=== PATIENT | female | born 1930 | race Caucasian/White ===

== ENCOUNTER → 2016-04-08 | Day surgery (SDC) | payer OTHER ==
[~2016-04-08] VITALS: Ht 157.5 cm; Wt 61.7 kg
[~2016-04-08] MED LIST: ACETAMINOPHEN500 M4 PO; AMLODIPINE BESYL5 M1 PO; ASPIRIN EC81 M1 PO; ATORVASTATIN CA10 M1 PO; FUROSEMIDE20 M1 PO; LABETALOL HCL300 M1 PO; LEVOTHYROXINE88 MCG PO; LOVENOX40 MG/0.1 SC; VALSARTAN160 M1 PO
--- NOTE | 2016-04-08 08:10 | Operative Report ---
Operative/Inv Procedure Report Surgery Date: 04/08/16 Name of Procedure: Cataract extraction lens implantation left eye Pre-Operative Diagnosis: Age-related cataract left eye 20/60 vision Post-Operative Diagnosis: Same Estimated Blood Loss: none Surgeon/[employer] Teacher: ELIANE DAVIS,KEYANA Stewart Anesthesia: local monitored anesthesi Complications: None Operative/Procedure Note Note: The patient was brought to the operating room standard monitoring equipment was attached the patient was prepped and draped in the usual fashion for intraocular surgery. A lid speculum was placed to retract the lids. The case was begun by making 2 partial-thickness corneal relaxing incisions at 97. A temporal incision with a 2.4 mm keratome. The eye was stabilized with a Silver ring during this incision. 1 mL of non-preserved lidocaine was introduced into the anterior chamber to provide anesthesia. The anterior chamber was then filled and deepened with viscoelastic. A curvilinear capsulorrhexis was achieved using a 30-gauge needle and is a cystotome and capsulorrhexis was finished using a Utrata forceps. A second or paracentesis incision was made temporally with a 1 mm MVR blade. The lens was then hydrodissected with balanced salt solution and found to be rotatable. The lens was emulsified using phacoemulsification and a modified four-quadrant cracking technique. The residual cortical material was removed using automated irrigation and aspiration and as much of the anterior capsular rim was cleaned as well as possible. The posterior capsule was cleaned first with the automated machine on a low setting and then manually with a Zafar squeegee. The capsular bag was deepened with viscoelastic. The lens a Technis 1 20.0 diopter placed into the bag under direct visualization and rotated so that the haptics were at 12 and 6:00. Viscoelastic was then removed from the eye by flushing it out and then by automated irrigation and aspiration. The eye was pressurized to a normal tone. 1/10 of a cc of vancomycin solution was introduced into the anterior chamber to provide antibiotic prophylaxis. The wounds were sealed by hydrating the stroma adjacent to them and the eye was left at a proper tone after the wounds were checked and found not to be leaking. The lid speculum was removed from the orbit. Antibiotic and steroid drops were placed on the eye and then the eye was shielded. Monitoring equipment was removed from the patient and the patient was removed from the operative suite to the holding area. The patient tolerated the procedure well and will be seen in the office tomorrow.
== END ==
LOC: STS 02:05
DX: H25.9 Unspecified age-related cataract (principal); I10 Essential (primary) hypertension; M19.90 Unspecified osteoarthritis, unspecified site; Z86.73 Personal history of transient ischemic attack (TIA), and cerebral infarction without residual deficits
CPT/HCPCS: J2250; V2632

== ENCOUNTER 2016-07-27 13:12 | Inpatient (IN) | payer OTHER ==
[~2016-07-27] VITALS: Ht 157.5 cm; Wt 57.6 kg
[2016-07-27] MEDS ORDERED: LABETALOL HCL300 M1 PO (13:24)
--- NOTE | 2016-07-27 13:29 | ED MVC/FALL/TRAUMA COMPLAINT ---
History of Present Illness General Chief Complaint: Fall Stated Complaint: BIBA FOR FALL LEFT HIP, THIGH, KNEE, PAIN Source: patient, family, EMS Exam Limitations: no limitations Vital Signs & Intake/Output Vital Signs & Intake/Output Vital Signs Date Time Temp Pulse Resp B/P B/P Pulse O2 O2 Flow FiO2 Mean Ox Delivery Rate 08/03 1300 97.7 68 20 164/68 08/03 1245 164/68 08/03 1006 164/68 08/03 0633 97.7 68 20 164/68 99 08/03 0000 97 Nasal 1.0L Cannula 08/02 2208 66 158/70 08/02 2157 97.9 118 20 140/74 97 Nasal 1.0L Cannula ED Intake and Output 08/03 0000 08/02 1200 Intake Total 1750 1350 Output Total 800 500 Balance 950 850 Intake, IV 450 630 Intake, Oral 1300 720 Number 2 Bowel Movements Output, Urine 800 500 Allergies Coded Allergies: Iodinated Contrast Media - Oral and (IVP DYE 07/27/16) Penicillins (UNKNOWN 07/27/16) Sulfa (Sulfonamide Antibiotics) (UNKNOWN 07/27/16) Tetanus Vaccines and Toxoid (UNKNOWN 07/27/16) codeine (UNKNOWN 07/27/16) latex (ITCHING FROM LATEX GLOVES 07/27/16) Uncoded Allergies: RADIOACTIVE ISOTOPES (UNKNOWN 01/12/12) Reconcile Medications Acetaminophen 500 MG TABLET 1,000 MG PO Q6PRN PRN PAIN Amlodipine Besylate 5 MG TABLET 1 TAB PO DAILY HTN (Reported) Aspirin (Ecotrin*) 81 MG TABLET.DR 1 TAB PO DAILY tia (Reported) Atorvastatin Calcium 10 MG TABLET 1 TAB PO 1700 hld (Reported) Enoxaparin Sodium (Lovenox) 40 MG/0.4 ML SYRINGE 40 MG SC DAILY DVT Prophylaxis Continue for 4 to 6 weeks or when patient fully ambulatory Recommended by Orthopedic Surgeon. Furosemide 20 MG TABLET 1 TAB PO DAILY HTN (Reported) Labetalol HCl 300 MG TABLET 1 TAB PO BID htn (Reported) Levothyroxine Sodium 88 MCG TABLET 1 TAB PO QAM HYPOTHYROID (Reported) Triage Note: BIBA AFTER MECHANICAL FALL ONTO LEFT SIDE AND HIP, SLIGHT SHORTENING NOTED WITHOUT ROTATION. UNABLE TO LIFT LEG OR FLEX HIP INDEPENDENTLY OR WITHOUT PAIN. +PULSES BILATERALLY. NO OBVIOUS DEFORMITY. DENIES HEADSTRIKE, LOC OR BLACK OUT. DENIES HEADACHE, C-SPINE TENDERNESS OR OTHER OBVIOUS PAIN. ABD SOFT, NONTENDER. Triage Nurses Notes Reviewed? yes HPI: Ms. Smith is a 86 yo f w/ PMH HTN, HLD, minor CVAs, hypothyroidism, CHF BIBA for fall. Pt was outside the big W when she reached downt to slat pickler her hat that had fallen in a puddle and she fell onto her L side. Pt endorsing L hip and thigh pain, that radiates down to the knee. Pt unable to lift L leg off bed. Pt denies LOC, headache, head trauma, neck pain, CP, SOB, abd pain, N/V/D. (DANY GOLDBERG MD) Past History Travel History Traveled to [place] past 21 day No Medical History Any Pertinent Medical History? see below for history Neurological: CVA Cardiovascular: hypertension, hyperlipidemia Endocrine: hypothyroidism Surgical History Surgical History: none, lumpectomy Psychosocial History Who do you live with Spouse Services at Home None What is your primary language Macedonian Family History Hx Contributory? No (DANY GOLDBERG MD) Review of Systems Review of Systems Constitutional: Reports: see HPI. Denies: no symptoms. Eyes: Reports: no symptoms. Ears, Nose, Throat, Mouth: Reports: no symptoms. Respiratory: Reports: no symptoms. Cardiovascular: Reports: no symptoms. Gastrointestinal/Abdominal: Reports: no symptoms. Genitourinary: Reports: no symptoms. Musculoskeletal: Reports: joint pain (hip and knee pain). Skin: Reports: no symptoms. Neurological/Psychological: Reports: no symptoms. All Other Systems: Reviewed and Negative (DANY GOLDBERG MD) Physical Exam Physical Exam General Appearance: well developed/nourished, no apparent distress, alert, awake , mild distress Head: atraumatic, normal appearance Eyes: Bilateral: normal appearance, PERRL, EOMI, normal inspection. Ears, Nose, Throat, Mouth: hearing grossly normal Neck: normal inspection, supple, full range of motion Respiratory: normal breath sounds, chest non-tender, no respiratory distress Cardiovascular: regular rate/rhythm Peripheral Pulses: 2+ dorsalis pedis (R), 2+ dorsalis pedis (L) Gastrointestinal: normal bowel sounds, soft, non-tender Back: normal inspection, normal range of motion, no vertebral tenderness Extremities: limited range of motion, pain with movement, Tenderness to palpation of L hip with lateral pelvic compression. No instability noted with compression. Left leg is approximately 1-2 cm shorter than right leg. No external rotation noted. Neurologic/Psych: no motor/sensory deficits, awake, alert, oriented x 3, normal gait, normal mood/affect Skin: intact, normal color, warm/dry Core Measures ACS in differential dx? No Severe Sepsis Present: No Septic Shock Present: No (YUSUF DAVIS,DANY) Progress Differential Diagnosis: abd injury, C/T/L spine injury, ext injury, ICH, pelvis injury, pnemothorax, spinal cord injury Plan of Care: Orders Procedure Date/time Status BASIC ELECTROLYTES PLUS BUN&CR 08/03 0600 Complete Therapeutic Activities 08/03 UNK Complete Gait Training 08/03 UNK Complete Discharge Patient 08/03 UNK Active THERAPIST ORDERS 08/02 1600 Complete Laboratory Tests 08/03/16 0704: CBC w Diff Cancelled, WBC Cancelled, RBC Cancelled, Hgb Cancelled, Hct Cancelled , MCV Cancelled, MCH Cancelled, RDW Cancelled, Plt Count Cancelled, MPV Cancelled, PUBS MCHC Cancelled 08/03/16 0650: Anion Gap 6, Estimated GFR > 60, BUN/Creatinine Ratio 28.8 H 08/03/16 0030: Urine Color YEL, Urine Clarity CLEAR, Urine pH 6.0, Ur Specific [place] 1.015, Urine Protein NEG, Urine Ketones TRACE H, Urine Nitrite NEG, Urine Bilirubin NEG, Urine Urobilinogen 0.2, Ur Leukocyte Esterase TRACE H, Ur Microscopic SEDIMENT EXAMINED, Urine RBC 1-3, Urine WBC 3-5 H, Ur Epithelial Cells RARE, Urine Bacteria MANY H, Urine Mucus RARE, Urine Hemoglobin NEG, Urine Glucose NEG Microbiology 08/03 0030 URINE ROUT: Urine Culture - RECD Ms. Smith is an 86-year-old female baby from a mechanical fall. Patient is quite adamant there are were no presyncopal symptoms prior to the fall. She was attempting to slat pickler her cat from the ground. Physical exam is consistent with possible intertrochanteric left hip fracture given the leg shortening as well as the pain. In addition the patient is unable to lift her left leg from the bed. The remainder of her trauma exam is otherwise unremarkable. She does not have any C-spine tenderness of note and denies any LOC or other head trauma to suggest intracranial hemorrhage versus a spinal fracture. X-ray shows left femur head fracture. Discussed with the patient and her . Orthopedics consulted. Patient made nothing by mouth. Will admit to medical service for evaluation and likely go to the OR tomorrow for operative repair. Given that the patient has a broken pelvis, Mauro placed to relieve pressure on the bladder. Basic labs including EKG are obtained. Chest x-ray does not show any rib fractures. No additional fractures noted on the knee or the femur. Clinically there is no evidence of other traumatic injuries. Will admit patient to hospitalist service with orthopedics consulting. (DANY GOLDEBRG MD) Diagnostic Imaging: Viewed by Me: Radiology Read. Discussed w/RAD: Radiology Read. Radiology Impression: L femoral neck fracture CXR Impression: no acute abnormality (DANY GOLDBERG MD) Departure Departure Time of Disposition: 1504 Disposition: STILL A PATIENT Condition: Stable Clinical Impression Primary Impression: Fractured femoral neck Qualifiers: Encounter type: initial encounter Fracture type: closed Laterality: left Qualified Code: S72.002A - Fracture of unspecified part of neck of left femur, initial encounter for closed fracture Secondary Impressions: Fall Qualifiers: Encounter type: initial encounter Qualified Code: W19.XXXA - Unspecified fall, initial encounter Left hip pain Referrals: IRENE PLATA DO (PCP/Family) Departure Forms: Customer Survey General Discharge Information Prescriptions: Current Visit Scripts Acetaminophen 1,000 MG PO Q6PRN PRN PAIN #28 TAB Enoxaparin Sodium (Lovenox) 40 MG SC DAILY #30 Vial Continue for 4 to 6 weeks or when patient fully ambulatory Recommended by Orthopedic Surgeon. Admission Note Spoke With: ENEDELIA MARTINEZ MD Documentation of Exam: Documentation of any treatments & extenuating circumstances including Concerns Regarding Discharge (functional status, medication knowledge or non-compliance, living conditions, etc.) that warrant an admission rather than observation: Ms. Smith requires inpatient hospitalization for her L femoral neck fracture and fall. Patient is unable to ambulate at all and a discharge from the ED would cause grave disability and likely mortality. Pt is getting consultation by orthopedics and will likely require surgical intervension as an inpatient. (DANY GOLDBERG MD) Resident Co-Sign Statement Statement: ED Attending supervision documentation- [X] I saw and evaluated the patient. I have also reviewed all the pertinent lab results and diagnostic results. I agree with the findings and the plan of care as documented in the Resident's documentation. [X] I have reviewed the ED Record and agree with the Resident's documentation. [] Additions or exceptions (if any) to the Resident's note and plan are summarized below: [] (GEREMIAS DAVIS,CRUZ Felix)
[2016-07-27] MEDS ORDERED: AMLODIPINE BESYL5 M1 PO (13:31)
[2016-07-27] MEDS ORDERED: ATORVASTATIN CA10 M1 PO (13:31)
[2016-07-27] MEDS ORDERED: FUROSEMIDE20 M1 PO (13:31)
[2016-07-27] MEDS ORDERED: LEVOTHYROXINE88 MCG PO (13:32)
[2016-07-27] MEDS ORDERED: VALSARTAN160 M1 PO (13:32)
--- NOTE | 2016-07-27 14:39 | RADIOLOGY REPORT ---
EXAMINATION: XR PELVIS CLINICAL INFORMATION: Fall. Left hip pain. COMPARISON: None TECHNIQUE: AP view of the pelvis. FINDINGS: There is fracture through the left femoral neck with varus alignment. The left femoral head is situated within the acetabulum. No other fracture or dislocation. The pelvic rings are maintained. Decreased bone mineral density. Lower lumbar degenerative changes. Surgical clips over the right abdomen. Additional surgical material over the left pelvis. Scattered vascular calcification. IMPRESSION: Left femoral neck fracture.
--- NOTE | 2016-07-27 14:40 | RADIOLOGY REPORT ---
EXAMINATION: XR CHEST CLINICAL INFORMATION: Fall. Fracture. COMPARISON: Report from chest radiography 01/29/2012. TECHNIQUE: 2 views of the chest were obtained. FINDINGS: The lungs are well expanded. There is interstitial prominence. A couple patchy/nodular opacities overlie the right lower lung, which are unchanged compared to exam 01/29/2012. Small bilateral pleural effusions. No pneumothorax. Biapical pleural parenchymal scarring. Top normal to mildly enlarged cardiac size. Upper abdominal surgical clips. No acute osseous abnormalities. IMPRESSION: 1. Bilateral interstitial prominence. Findings may represent a degree of interstitial edema. 2. Small bilateral pleural effusions versus pleural scarring, which is chronic. 3. Chronic patchy/nodular opacities overlying the right lower lung, likely representing benign nodules.
--- NOTE | 2016-07-27 14:43 | RADIOLOGY REPORT ---
EXAMINATION: XR FEMUR, LEFT XR KNEE, LEFT CLINICAL INFORMATION: Fall. Left thigh pain. COMPARISON: None TECHNIQUE: AP and lateral views of the left femur were obtained. FINDINGS: Left femoral neck fracture with varus alignment and slight cranial migration of the distal femur. No other femoral fracture is demonstrated. Decreased bone mineral density. The knee joint is congruent. No significant knee joint effusion. Atherosclerotic calcification. Suspect left leg varices. IMPRESSION: Left femoral neck fracture. No distal femoral fracture or acute osseous abnormality at the left knee.
[2016-07-27 14:52] LABS: ABSOLUTE BASOPHIL COUNT 0 /CUMM (0.0-0.2); ABSOLUTE EOSINOPHIL COUNT 0 /CUMM (0.0-0.7); ABSOLUTE GRANULOCYTE CT 6.4 /CUMM (1.4-6.5); ABSOLUTE LYMPH COUNT 0.7 /CUMM (1.2-3.4); ABSOLUTE MONOCYTE COUNT 0.3 /CUMM (0.10-0.60); BASOPHIL % 0.3 % (0.0-2.0); EOSINOPHIL % 0.2 % (0-5); GRANULOCYTE % 86.5 % (42.2-75.2); HEMATOCRIT 41.2 % (37-47); MEAN CORPUSCULAR HGB 26.4 PG (27.0-31.0); MEAN CORPUSCULAR HGB CONC 33.2 G/DL (33.0-37.0); MEAN CORPUSCULAR VOLUME 79.5 FL (81.0-99.0); MEAN PLATELET VOLUME 7.8 FL (7.4-10.4); PLATELET COUNT 135 /CUMM (130-400); RBC DISTRIBUTION WIDTH 14.3 % (11.5-14.5); RED BLOOD CELL CT 5.18 /CUMM (4.20-5.40); WHITE BLOOD CELL COUNT 7.4 /CUMM (4.8-10.8)
[2016-07-27 15:09] LABS: PT 11.4 SEC (9.4-12.5)
--- NOTE | 2016-07-27 15:23 | Cons- Orthopedic ---
General Information and HPI Consulting Request Date of Consult: 07/27/16 Requested By: Emergency department staff Reason for Consult: Left femoral fracture Source of Information: patient, family Exam Limitations: poor historian History of Present Illness: 78-year-old female brought into the emergency department status post fall landing of left lower extremity pain. The patient was seen with present she reports while shopping perhaps fell off into puddle when she attempted to bend down and pick it up she lost her balance and fell onto her left side. She complains of left hip knee and ankle pain she had no other complaints the current time and denied any other injury. She denied any prefall dizziness, palpitations, weakness, or visual changes. She denies any new head and denies any post-fall loss of consciousness, headache, or weakness. Allergies/Medications Allergies: Coded Allergies: Iodinated Contrast Media - Oral and (IVP DYE 07/27/16) Penicillins (UNKNOWN 07/27/16) Sulfa (Sulfonamide Antibiotics) (UNKNOWN 07/27/16) Tetanus Vaccines and Toxoid (UNKNOWN 07/27/16) codeine (UNKNOWN 07/27/16) furosemide (FACIAL SWELLING 07/27/16) latex (ITCHING FROM LATEX GLOVES 07/27/16) Uncoded Allergies: RADIOACTIVE ISOTOPES (UNKNOWN 01/12/12) Home Med List: Amlodipine Besylate 5 MG TABLET 1 TAB PO DAILY HTN (Reported) Atorvastatin Calcium 10 MG TABLET 1 TAB PO DAILY CHOLESTEROL (Reported) Furosemide 20 MG TABLET 1 TAB PO DAILY HTN (Reported) Labetalol HCl 300 MG TABLET 1 TAB PO QAM HTN (Reported) Levothyroxine Sodium 88 MCG TABLET 1 TAB PO QAM HYPOTHYROID (Reported) Valsartan 160 MG TABLET 1 TAB PO DAILY HTN (Reported) Past History Medical History Neurological: TIA EENT: NONE Cardiovascular: hypertension, hyperlipidemia Respiratory: NONE Gastrointestinal: NONE Hepatic: NONE Renal: NONE Musculoskeletal: NONE Psychiatric: NONE Endocrine: hypothyroidism Blood Disorders: NONE Cancer(s): NONE Surgical History Pertinent Surgical History: breast biopsy, lumpectomy, toncillectomy, rt thigh mass rx Psychosocial History Where Do You Live? Home Who Do You Live With? spouse Services at Home: None Primary Language: Korean Smoking Status: Never Smoked ETOH Use: denies use Functional Ability ADLs Independent: dressing, eating, toileting, bathing. Ambulation: independent IADLs Independent: shopping, housework, finances, food prep, telephone, medication admin. Needs Assist: transportation. Review of Systems Review of Systems Constitutional: Denies: weakness. Cardiovascular: Denies: chest pain, palpitations. Respiratory: Denies: cough, short of breath. Genitourinary: Denies: dysuria. Exam & Diagnostic Data Vital Signs and I&O Vital Signs Date Time Temp Pulse Resp B/P B/P Pulse O2 O2 Flow FiO2 Mean Ox Delivery Rate 07/27 1447 62 18 169/72 95 Room Air 07/27 1400 96 Room Air 07/27 1319 98.0 70 20 191/75 97 Room Air Intake & Output 07/27 1600 07/27 0800 07/27 0000 07/26 1600 07/26 0800 07/26 0000 Intake Total Output Total 500 Balance -500 Output, Urine 500 X-rays of left lower extremity showing a left slightly displaced femoral neck fracture Chest x-ray with some interstitial edema and pleural thickening Left knee x-ray without fracture Physical Exam: Gen.: Alert and in no obvious distress Skin: Warm and dry without jaundice HEENT: Normocephalic and atraumatic Chest: Nontender with equal expansion Cardiac: S1-S2 regular Pulmonary: Bilateral breath sounds were equal and slightly decreased at bases. There are no wheezes rales or rhonchi appreciated. Abdomen: Soft, nontender, nondistended Extremities: Bilateral lower extremities warm without calf tenderness or significant edema. Gross motor and sensory were intact. Left hip with significant tenderness but no palpable deformity overlying mild expected edema with skin intact. Assessment/Plan Assessment/Plan Assessment: 86-year-old female status post fall who sustained a left femoral neck fracture. The case was discussed with Dr. Rome. Recommendations: The patient should be admitted to the medical service for optimization and risk stratification prior to surgery Please keep patient nothing by mouth past midnight for possible operative intervention tomorrow should the patient be deemed an acceptable risk Mauro catheter with strict bedrest until surgical repair GI and DVT prophylaxis PRN pain medications, antiemetics, antipyretics as needed Would consider having cardiology see the patient given her past history (patient 's director of career resources is Dr. Nichole) Problem List: 1. Fractured femoral neck Consult Acknowledgment - Thank you for your consult request.
[2016-07-27] MEDS ORDERED: ASPIRIN EC81 M1 PO (16:11)
--- NOTE | 2016-07-27 16:22 | PN- Orthopedic ---
Surgical Brief Attending Note Brief Attending Note: 86yo F with history of TIA, HTN, hypothyroidism, and CHF with pulmonary edema in 2012 presents with left leg pain s/p ground level fall earlier today. She was attempting to belt picker a hat and tumbled forward. Complains of aching in the left leg and pain with attempted movement of the leg. Denies pain in other extremities. is at the bedside; osuna has been placed. ROS: denies chest pain, shortness of breath, or recent changes in overall health. Hard of hearing. Exam: Tender to palpation over left hip and thigh. Mild tenderness over left knee and left calf. No ecchymosis or abrasion noted over left hip. Intact bilateral ankle DF/PF and great toe EHL/FHL Sensation intact to light touch over bilateral legs and feet. Bilateral feet warm, well-perfused. No tenderness to palpation of bilateral upper extremities. No abrasions or ecchymosis noted. Moving bilateral arm and using hands with ease. Xrays: left displaced femoral neck fracture; no evidence of left knee fracture or malalignment. A/P: 86yo F with left displaced femoral neck fracture; recommend surgical stabilization with left hip hemiarthroplasty following medical/cardiac optimization. Discussed surgical intervention with patient and her . Will plan for OR following medical evaluation, likely tomorrow. NWAlisha ROSALESE Pain control Osuna catheter Appreciate medical/cardiac care of this patient NPO after midnight for surgical stabilization with hemiarthroplasty tomorrow pending further evaluation.
--- NOTE | 2016-07-27 16:24 | History & Physical ---
JACQUIE DAVIS,DENISSE 07/27/16 1624: General Information and HPI MD Statement: I have seen and personally examined ANDREW CANTU and documented this H&P. The patient is a 86 year old F who presented with a patient stated chief complaint of [fall and left lower extremity pain]. Source of Information: patient, family Exam Limitations: no limitations, poor historian History of Present Illness: This is 86 year female with past medical history of diastolic heart failure, hypertension, hypothyroidism, TIA 6 years ago, breast lumpectomies, bowel perforation status post ileostomy with subsequent reversal, cataract was brought into the emergency department status post fall with chief complaint of left lower extremity pain. Today patient went to shopping and after returning while getting out of the car her head from her lap fell off into the puddle. She bent down to get her head and lost her balance and fell on her buttocks, no head strike or loss of consciousness. Just after the fall patient started having excruciating left lower extremity pain and she was not able to stand up on her own. Patient denied any episode of dizziness, palpitation, weakness or visual changes prior to fall. Patient was brought in to ER by ambulance and on evaluation with x-ray patient found to have left femoral neck fracture. Patient denies any chest pain, dizziness, lightheadedness, weakness, sensory loss in her lower extremity. Allergies/Medications Allergies: Coded Allergies: Iodinated Contrast Media - Oral and (IVP DYE 07/27/16) Penicillins (UNKNOWN 07/27/16) Sulfa (Sulfonamide Antibiotics) (UNKNOWN 07/27/16) Tetanus Vaccines and Toxoid (UNKNOWN 07/27/16) codeine (UNKNOWN 07/27/16) latex (ITCHING FROM LATEX GLOVES 07/27/16) Uncoded Allergies: RADIOACTIVE ISOTOPES (UNKNOWN 01/12/12) Home Med list Amlodipine Besylate 5 MG TABLET 1 TAB PO DAILY HTN (Reported) Aspirin (Ecotrin*) 81 MG TABLET.DR 1 TAB PO DAILY tia (Reported) Atorvastatin Calcium 10 MG TABLET 1 TAB PO 1700 hld (Reported) Furosemide 20 MG TABLET 1 TAB PO DAILY HTN (Reported) Labetalol HCl 300 MG TABLET 1 TAB PO BID htn (Reported) Levothyroxine Sodium 88 MCG TABLET 1 TAB PO QAM HYPOTHYROID (Reported) Valsartan 160 MG TABLET 1 TAB PO DAILY HTN (Reported) Compliance With Home Meds: FAIR Past History Travel History Traveled to [place] past 21 day No Medical History Neurological: TIA EENT: NONE Cardiovascular: hypertension, hyperlipidemia Respiratory: NONE Gastrointestinal: NONE Hepatic: NONE Renal: NONE Musculoskeletal: NONE Psychiatric: NONE Endocrine: hypothyroidism Blood Disorders: NONE Cancer(s): NONE Surgical History Surgical History: breast biopsy, lumpectomy, toncillectomy, rt thigh mass rx Past Family/Social History Family History Relations & Conditions if any FATHER FH: myocardial infarction SISTER FHx: leukemia BROTHER FH: myocardial infarction Psychosocial History Where do you live? Home Who Do You Live With? spouse Services at Home: None Primary Language: American Smoking Status: Never Smoked ETOH Use: denies use Illicit Drug Use: denies illicit drug use Living Will? no Functional Ability ADLs Independent: dressing, eating, toileting, bathing. Ambulation: independent IADLs Independent: shopping, housework, finances, food prep, telephone, medication admin. Needs Assist: transportation. Review of Systems Review of Systems Constitutional: Denies: chills, fever, malaise, weakness. EENTM: Reports: hearing changes. Denies: visual changes. Cardiovascular: Denies: chest pain, edema, orthopena, palpitations, peripheral edema, syncope. Respiratory: Denies: orthopnea, short of breath, sputum production, wheezing. GI: Denies: diarrhea, nausea, vomiting. Genitourinary: Denies: dysuria, frequency, hematuria. Musculoskeletal: Reports: joint pain. Skin: Denies: rash. Neurological/Psychological: Denies: confusion, headache, numbness. Hematologic/Endocrine: Denies: bleeding. Exam & Diagnostic Data Last 24 Hrs of Vital Signs/I&O Vital Signs Date Time Temp Pulse Resp B/P B/P Pulse O2 O2 Flow FiO2 Mean Ox Delivery Rate 07/27 1710 97.7 64 19 140/72 96 07/27 1552 97.9 64 16 167/71 95 Room Air 07/27 1447 62 18 169/72 95 Room Air 07/27 1400 96 Room Air 07/27 1319 98.0 70 20 191/75 97 Room Air Intake & Output 07/27 1600 07/27 0800 07/27 0000 Intake Total Output Total 600 Balance -600 Output, Urine 600 Physical Exam General Appearance Alert, Oriented X3, Cooperative, Moderate Distress Skin No Rashes Skin Temp/Moisture Exam: Warm/Dry HEENT Atraumatic, PERRLA, EOMI, Mucous Membr. moist/pink Neck Supple, No JVD Lymphatic Cervical nl Cardiovascular Regular Rate, Normal S1, Normal S2, No Murmurs Lungs Clear to Auscultation, Normal Air Movement Abdomen Normal Bowel Sounds, Soft, No Tenderness Neurological Normal Speech, Strength at 5/5 X4 Ext, Normal Tone, Sensation Intact, Cranial Nerves 3-12 NL Extremities No Edema, Normal Pulses, lt. LE moted externally rotated with reduced ROM due to pain Vascular Normal Pulses, Pulses Symmetrical Sepsis Peripheral Pulse Location: Posterior Tibialis Last 24 Hrs of Labs/[place]: Laboratory Tests 07/27/16 1442: Anion Gap 10, Estimated GFR 42 L, BUN/Creatinine Ratio 18.3, Glucose 177 H, Calcium 9.5, Total Bilirubin 0.8, AST 18, ALT 25, Alkaline Phosphatase 60, Total Protein 5.9 L, Albumin 3.7, Globulin 2.2, Albumin/Globulin Ratio 1.7, PT 11.4, INR 1.09, CBC w Diff MAN DIFF ORDERED, RBC 5.18, MCV 79.5 L, MCH 26.4 L, RDW 14.3, MPV 7.8, Gran % 86.5 H, Lymphocytes % 9.4 L, Monocytes % 3.6, Eosinophils % 0.2, Basophils % 0.3, Absolute Granulocytes 6.4, Segmented Neutrophils 85 H, Band Neutrophils 3, Absolute Lymphocytes 0.7 L, Lymphocytes 10 L, Monocytes 2, Absolute Monocytes 0.3, Absolute Eosinophils 0, Absolute Basophils 0, Platelet Estimate ADEQUATE, Normochromic RBCs VERIFIED, PUBS MCHC 33.2 07/27/16 1433: Urine Color YEL, Urine Clarity CLEAR, Urine pH 6.5, Ur Specific Jean 1.010, Urine Protein NEG, Urine Ketones NEG, Urine Nitrite NEG, Urine Bilirubin NEG, Urine Urobilinogen 0.2, Ur Leukocyte Esterase NEG, Ur Microscopic EXAM NOT REQUIRED, Urine Hemoglobin NEG, Urine Glucose NEG Microbiology 07/27 1432 URINE ROUT: Urine Culture - RECD Diagnostic Data EKG Results Normal sinus rhythm at rate of 60, nonspecific Q waves in leads 3 aVF and V1 to V4 unchanged from previous EKG CXR Results Noted with bilateral interstitial prominence with questionable interstitial edema, bilateral small pleural effusion, chronic right lower lobe nodule Other Results Femoral x-ray revealed left femoral neck fracture Assessment/Plan Assessment: This is 86 year female with past medical history of diastolic heart failure, hypertension, hypothyroidism, TIA 6 years ago, breast lumpectomies, 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 1. Left femoral neck fracture - Admit to general medicine floor - Pain management - Appreciated orthopedic surgery recommendations -We'll keep patient nothing by mouth for possible surgery in a.m. - Cardiology preop evaluation in a.m., these call Dr. Nichole in a.m. - As per RCRI criteria patient is not going for high-risk surgery and not have any history of ischemic heart disease or heart failure/CVA/insulin-dependent diabetes/CKD with creatinine more than 2, and prior to fall she was able to walk and do daily activities without any chest pain or shortness of breath which meets METS criteria, so her risk factors are serial suggestive of 0.4% risk of cardiac or nonfatal ME during surgery, but will await for cardiology evaluation prior to surgery 2. Hypertension Continue home dose losartan 100 mg, labetalol 300 mg twice a day, Lasix 20 mg and amlodipine 5 mg daily. 3. Hypothyroidism Continue Synthroid 88 g daily 4. History of TIA Continue statin Hold aspirin prior to surgery 5. DVT prophylaxis Subcutaneous Lovenox 6. Full code As Ranked By This Provider Problem List: 1. Fractured femoral neck Qualifiers Encounter type: initial encounter Fracture type: closed Laterality: left Qualified Code: S72.002A - Fracture of unspecified part of neck of left femur, initial encounter for closed fracture 2. Fall Qualifiers Encounter type: initial encounter Qualified Code: W19.XXXA - Unspecified fall, initial encounter 3. HTN (hypertension) 4. Hypothyroid Core Measures/Miscellaneous Acute Coronary Syndrome ACS Diagnosis: No Cerebrovascular Accident CVA/TIA Diagnosis: No Congestive Heart Failure CHF Diagnosis: No Venous Thromboembolism VTE Risk Factors: Age > 40 No [facility] VTE prophylaxis d/t: No contraindications No VTE Pharm Prophylaxis d/t: No contraindications VTE Diagnosis: No VTE Type: NONE VTE Confirmed by (Test): NONE Severe Sepsis Severe Sepsis Present: No Septic Shock Septic Shock Present: No Miscellaneous Documentation Attending Case Discussed With: ENEDELIA MARTINEZ MD Primary Care Physician: IRENE PLATA DO Patient sees these Specialists Dr. Nichole for cardiology Level of Patient Care: General Medicine Consults Needed: 1 Consulting Specialty: Cardiology Consulting Physician: Dr. Nichole Reason for Consult: pre-op eval Consults Needed: 2 Consulting Specialty: Orthopedics Consulting Physician: Dr. Rome Reason for Consult: lt. femoral neck fracture ENEDELIA MARTINEZ MD 07/27/16 7508: Attending MD Review Statement Attending Statement Attending MD Statement: examined this patient, discuss w/resident/PA/EXPANSION ENVELOPE MAKER HAND, agreed w/resident/PA/EXPANSION ENVELOPE MAKER HAND, discussed with family, reviewed EMR data (avail), discussed with nursing, reviewed images, amended to note Attending Assessment/Plan: The patient is an 86 yo female with h/o HTN, grade I preserved EF CHF, Hypothyroidism, TIA who presented in the ED on the day of admission after a mechanical fall at home and severe left hip pain. Xray showed displaced fracture of the femoral neck. Orthopedics has recommended hemiarthroplasty. The patient denied syncope, lightheadedness, dyspnea, chest pain or any other symptoms. Denies any anginal symptoms, orthopnea, etc. Has been followed by Dr. Nichole as OP. Physlical Exam: VS: T 98.0, P 70, R 20, BP 169/72, PO 96% on RA HEENT: eyes- PERRLA, EOMI vladimir- dry mucosa, no lesions Neck: no JVD/bruits Chest: clear Cor: RRR, nl S1, S2 w/o murm Abd: BS+, soft, NT Ext: no edema, left hip turned out- extreme pain on minimal movement Neuro: anxious, alert/oriented, non-focal exam Labs/Tests- as above Impression/Plan: #Acute Left Femoral Neck/Hip Fracture- displaced. Due to mechanical fall. Orthopedics saw her and recommend hemiarthroplasty. Plan: RCRI calculated and is 0.4% risk. Benefits outweigh risk of surgery. Will have Cardiology see in morning. #Essential HTN- BP is as above. Plan: Contineu Labetalol, Valsartin, Amlodipine. #Hyperlipidemia- on Atorvastatin. Plan: Continue Atorvastatin. #H/O EF Preserved CHF- no clinical CHF. Plan: Will check most recent ECHO done as OP (last one here normal EF). Hold Lasix at present as most likely mildly volume depleted at present. #Hypothyroid- on Levothyroxine and clinically euthyroid. Plan: Continue Levothyroxine.
[2016-07-27 17:10] VITALS: BP 140/72
[2016-07-27 21:48] VITALS: BP 144/80
--- NOTE | 2016-07-27 23:10 | Admission Certification ---
Admission Certification Certification Statement - As attending physician, I certify that at the time of - admission, based on clinical presentation, severity of - symptoms, need for further diagnostic testing and - therapeutic interventions, and risk of adverse outcomes - without in-hospital treatment, in my clinical assessment, - this patient requires an acute hospital stay for a minimum - of two nights or longer. I have also considered psychsocial - factors such as support system, advanced age, financial - issues, cognitive issues, and failed out-patient treatments, - past re-admission history, safety of patient, and lack of - compliance as applicable. Specific rationale supporting this admission is: The patient presents with acute left femoral neck fracture (displaced) after mechanical fall at home. Needs admission for medical assessment prior to planned left hip hemiarthroplasty as per orthopedics.
[2016-07-28 06:16] VITALS: BP 146/78
--- NOTE | 2016-07-28 07:34 | PN- Housestaff ---
MAURICE DAVIS,ANTONELLA 07/28/16 0734: Subjective Follow-up For: fall injury and left femur neck fracture Complaints: pain over left hip Subjective: Patient followed up and examined by me today. She is resting comfortably in bed, complaints of intermittant flare up of left hip pain, no other complaints. Vitals have been significant for high BP tamar when she was anxious last evening and night. She was given 0.5mg PO Ativan initially and later Haloperidol later. No overnight issues otherwise. Awaiting her surgery today. Of note, patient is hard of hearing. Review of Systems Constitutional: Reports: see HPI. Objective Last 24 Hrs of Vital Signs/I&O Vital Signs Date Time Temp Pulse Resp B/P B/P Pulse O2 O2 Flow FiO2 Mean Ox Delivery Rate 07/28 2228 66 07/28 2203 97.8 66 16 124/56 92 Room Air 07/28 1445 97.5 68 20 152/83 93 Room Air 07/28 1140 Room Air 07/28 0810 86 146/78 07/28 0810 86 146/78 07/28 0810 86 146/78 07/28 0616 99.0 86 20 146/78 95 Room Air Intake & Output 07/28 1600 07/28 0800 07/28 0000 Intake Total 600 20 550 Output Total 374 677 7205 Balance 300 -255 -850 Intake, IV 600 20 Intake, Oral 0 550 Output, Urine 145 515 1992 Patient 57.606 kg Weight Weight Reported by Patient Measurement Method Physical Exam General Appearance: Alert, Oriented X3, Cooperative, No Acute Distress Other Physical Findings: Skin No Rashes Skin Temp/Moisture Exam: Warm/Dry HEENT Atraumatic, PERRLA, EOMI, Mucous Membr. moist/pink Neck Supple, No JVD Lymphatic Cervical nl Cardiovascular Regular Rate, Normal S1, Normal S2, No Murmur appreciated by me. Lungs Clear to Auscultation, Normal Air Movement Abdomen Normal Bowel Sounds, Soft, No Tenderness Neurological Normal Speech, Strength at 5/5 X4 Ext, Normal Tone, Sensation Intact, Cranial Nerves 3-12 NL Extremities No Edema, Normal Pulses, Lt. LE moted externally rotated with reduced ROM due to pain Vascular Normal Pulses, Pulses Symmetrical Current Medications: Current Medications Sig/Moises Start time Last Medication Dose Route Stop Time Status Admin Acetaminophen 650 MG Q4P PRN 07/28 2044 AC PO Acetaminophen 1,000 MG Q8 07/28 0845 DC 07/28 IV 1333 Acetaminophen 650 MG Q6P PRN 07/27 1715 DC PO Amlodipine Besylate 5 MG DAILY 07/29 1000 AC PO Amlodipine Besylate 5 MG DAILY 07/28 1000 DC 07/28 PO 0810 Atorvastatin Calcium 10 MG 1700 07/29 1700 AC PO Atorvastatin Calcium 10 MG 1700 07/27 1700 DC 07/28 PO 1623 Clindamycin 600 MG IQ8 07/29 0000 AC Dextrose/Water 50 ML IV 07/29 0829 Dextrose/Sodium 1,000 ML Q13H 07/28 2045 AC 07/28 Chloride IV 2222 Dextrose/Sodium 1,000 ML Q13H 07/28 0800 DC 07/28 Chloride IV 0801 Enoxaparin Sodium 40 MG DAILY 07/29 1000 AC SC Furosemide 20 MG DAILY 07/28 1000 CAN PO Heparin Sodium 5,000 UNIT Q8 07/27 1620 DC 07/28 (Porcine) SC 1334 Labetalol HCl 300 MG BID 07/28 2200 AC PO Labetalol HCl 300 MG BID 07/28 1000 DC 07/28 PO 0810 Levothyroxine Sodium 0.088 MG DAILY AC 07/29 0700 AC PO Levothyroxine Sodium 0.088 MG DAILY AC 07/28 0700 DC 07/28 PO 0547 Losartan Potassium 100 MG DAILY 07/29 1000 AC PO Losartan Potassium 100 MG DAILY 07/28 1000 DC 07/28 PO 0810 Morphine Sulfate 2 MG Q4P PRN 07/28 2045 AC IV Morphine Sulfate 2 MG Q4 07/27 1800 DC 07/28 IV 0546 Oxycodone/ 1 TAB Q6P PRN 07/27 1715 DC 07/28 Acetaminophen PO 0811 Patient Medication 1 ED .STK-MED ONE 07/28 1400 DC Teaching ED 07/28 1401 Patient Medication 1 UNIT ONE NR 07/28 1000 DC Teaching ED 07/28 1600 Potassium Chloride 40 MEQ ONCE ONE 07/28 1315 DC 07/28 PO 07/28 1316 1335 Potassium Chloride 10 MEQ ONCE ONE 07/28 1315 DC 07/28 IV 07/28 1316 1334 Tramadol HCl 50 MG Q6P PRN 07/28 2045 AC PO Tramadol HCl 50 MG Q6P PRN 07/28 1000 DC 07/28 PO 1011 Last 24 Hrs of Lab/[place] Results Last 24 Hrs of Labs/Mics: Laboratory Tests 07/28/16 0705: Anion Gap 12, Estimated GFR 52 L, BUN/Creatinine Ratio 16.0, CBC w Diff NO MAN DIFF REQ, RBC 5.56 H, MCV 79.4 L, MCH 26.3 L, RDW 14.4, MPV 8.3, Gran % 89.1 H, Lymphocytes % 5.8 L, Monocytes % 4.7, Eosinophils % 0.3, Basophils % 0.1, Absolute Granulocytes 11.3 H, Absolute Lymphocytes 0.7 L, Absolute Monocytes 0.6, Absolute Eosinophils 0, Absolute Basophils 0, PUBS MCHC 33.1 Assessment/Plan Assessment: This is 86 year female with past medical history of diastolic heart failure, hypertension, hypothyroidism, TIA 6 years ago, breast lumpectomies, 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 1. Left femoral neck fracture - Continue to monitor in the general medicine floor, but monitor in telemetry unit postoperatively -Orthopedic evaluation appreciated. Plan to undergo surgery later today after cardiac evaluation. -Awaiting cardiac evaluation. Of note, patient has history of HTN and stage 1 diastolic failure (ECHO 2011), currently NOT in decompendation. - Pain management plan changed to reduce opiate as much as possible. - She is currently NPO for surgery later - As per RCRI criteria patient is not going for high-risk surgery and not have any history of ischemic heart disease or heart failure/CVA/insulin-dependent diabetes/CKD with creatinine more than 2, and prior to fall she was able to walk and do daily activities without any chest pain or shortness of breath which meets METS criteria, so her risk factors are serial suggestive of 0.4% risk of cardiac or nonfatal [place] during surgery, but awaiting cardiology evaluation prior to surgery 2. Hypertension Continue home dose losartan 100 mg, labetalol 300 mg twice a day, Lasix 20 mg and amlodipine 5 mg daily. 3. Hypothyroidism Continue Synthroid 88 g daily 4. History of TIA Continue statin Held aspirin prior to surgery 5. DVT prophylaxis Subcutaneous Lovenox 6. Full code Problem List: 1. Fractured femoral neck 2. Left hip pain 3. Fall 4. HTN (hypertension) 5. Hypothyroid 6. Diastolic heart failure Pain Ratin Pain Location: left hip Pain Goal: Pain 4 or less Pain Plan: pain meds changed today to reduce as much opiate as possible, has IV Tylenol round the clock and others PRN Tomorrow's Labs & Rationales: CBC, BEP, Mg post operatively in AM Consulting Request: Consulting Specialty: Orthopedics Consulting Physician: Dr. Rome Reason for Consult: lt. femoral neck fracture LANDEN DAVIS,CECY 07/28/16 1218: Attending MD Review Statement Attending Statement Attending MD Statement: examined this patient, discuss w/resident/PA/ROPE MAKER, agreed w/resident/PA/ROPE MAKER, discussed with family, reviewed EMR data (avail), discussed with nursing, discussed with case mgmt, amended to note Attending Assessment/Plan: patient seen and examined. Lying in bed does not appear to be in obvious distress. present at the bedside. Complains of left hip pain with movement. Complained of significant pain overnight. She denies chest pain or shortness of breath at rest or with exercise.. She denies palpitations. She denies use of any assistive device for ambulation. She is able to carry out activities of daily living independently. On examination she has no jugular venous distention. Heart sounds are regular with no audible murmur. Lungs are clear to auscultation bilaterally. She has no peripheral edema. Problems: 1. Left femoral neck fracture status post mechanical fall. 2. History of diastolic heart failure with no current evidence of decompensation. 3. Hypothyroidism 4. COPD; not oxygen dependent currently stable. 5. Chronic kidney disease stage III with baseline creatinine of 1.2. Recommendations:. -Patient has one risk factor for adverse cardiac events putting her RCRI risk at 0.9%. She is currently awaiting evaluation by her marine pilot. If there are no further recommendations from the cardiology service, and no contraindications to proceeding with the planned hip surgery later on today. -Any extubation with incentive spirometry postoperatively. Continue bronchodilators postoperatively. -Recommend avoiding opioids in this elderly [place] patient. Discontinue IV morphine and Percocet. Recommend pain control with IV Tylenol [id number] and Ultram for breakthrough pain. -Continue antihypertensive regimen of amlodipine, labetalol and ARB therapy. Continue Synthroid therapy.
[2016-07-28 08:40] LABS: ABSOLUTE BASOPHIL COUNT 0 /CUMM (0.0-0.2); ABSOLUTE EOSINOPHIL COUNT 0 /CUMM (0.0-0.7); ABSOLUTE LYMPH COUNT 0.7 /CUMM (1.2-3.4); ABSOLUTE MONOCYTE COUNT 0.6 /CUMM (0.10-0.60); MEAN CORPUSCULAR VOLUME 79.4 FL (81.0-99.0); MEAN PLATELET VOLUME 8.3 FL (7.4-10.4)
[2016-07-28 09:36] LABS: ABSOLUTE GRANULOCYTE CT 11.3 /CUMM (1.4-6.5); BASOPHIL % 0.1 % (0.0-2.0); EOSINOPHIL % 0.3 % (0-5); HEMATOCRIT 44.2 % (37-47); MEAN CORPUSCULAR HGB 26.3 PG (27.0-31.0); MEAN CORPUSCULAR HGB CONC 33.1 G/DL (33.0-37.0); PLATELET COUNT 125 /CUMM (130-400); RBC DISTRIBUTION WIDTH 14.4 % (11.5-14.5); RED BLOOD CELL CT 5.56 /CUMM (4.20-5.40)
[2016-07-28 10:26] LABS: WHITE BLOOD CELL COUNT 12.6 /CUMM (4.8-10.8)
[2016-07-28 11:07] LABS: GRANULOCYTE % 89.1 % (42.2-75.2)
[2016-07-28 14:45] VITALS: BP 152/83
--- NOTE | 2016-07-28 15:53 | PN- Orthopedic ---
Subjective Subjective: Patient seen and examined this morning. Slept on/off overnight, complaints of persistent "aching" in left thigh. Pain with attempted movement of left leg. Review of Systems: Denies chest pain, shortness of breath, or GI upset. Objective Vital Signs and I&Os Vital Signs Date Time Temp Pulse Resp B/P B/P Pulse O2 O2 Flow FiO2 Mean Ox Delivery Rate 07/28 1445 97.5 68 20 152/83 93 Room Air 07/28 1140 Room Air 07/28 0810 86 146/78 07/28 0810 86 146/78 15 0810 86 146/78 07/28 0616 99.0 86 20 146/78 95 Room Air 07/27 2148 99.3 89 20 144/80 94 07/27 1710 97.7 64 19 140/72 96 07/27 1552 97.9 64 16 167/71 95 Room Air Intake & Output 07/28 1600 07/28 0800 /15 0000 07/27 1600 07/27 0800 07/27 0000 Intake Total 600 20 550 Output Total 909 319 7760 600 Balance 300 -255 -850 -600 Intake, IV 600 20 Intake, Oral 0 550 Output, Urine 712 597 0798 600 Patient 127 lb Weight Weight Reported by Patient Measurement Method Physical Exam: Eldery female; alert, awake, and in no distress Tender to palpation over left lateral hip and proximal thigh No ecchymosis or abrasion Mild tenderness over left knee. Nontender over calf, ankle, foot; SCD in place Intact EHL/FHL Sensation intact to light touch over foot. Foot warm, well-perfused. Assessment/Plan Assessment/Plan 86yo F with left femoral neck fracture; plan for left hip cemented hemiarthroplasty. 1. NWB LLE 2. Pain control 3. NPO for OR 4. SCDs, hold chemoprophylaxis in anticipation of surgery 5. Appreciate medial and cardiology evaluation and optimization for surgery To OR today pending cardiology/medical eval Attending MD Review Statement Attending Statement Attending MD Statement: examined this patient, discuss w/resident/PA/REAL PROPERTY APPRAISER, reviewed images
--- NOTE | 2016-07-28 17:04 | ECHOCARDIOGRAM REPORT ---
ANDREW CANTU Age: 86 : 1930 Gender: F Exam Date: 07/28/2016 14:18 Exam Location: [address] [place] [address] Ht (in): 62 Wt (lb): 126 BSA: 1.59 BP: 146 / 78 Ordering Physician: ANTONELLA RICHARDS MD Referring Physician: Yonathan Nichole MD Technologist: Soraida Beckwith [facility] Room Number: 209-02 Indications: HEART FAILURE Rhythm: Sinus Technical Quality: Fair FINDINGS Left Ventricle Normal size left ventricle. Moderate concentric left ventricular hypertrophy. No obvious regional wall motion abnormalities. Normal left ventricular ejection fraction visually estimated at >65%. Abnormal relaxation filling pattern of the left ventricle for age (stage 1 diastolic dysfunction). Right Ventricle Normal right ventricular size and function. Right Atrium Normal right atrial size. Left Atrium Normal left atrial size. Mitral Valve Mitral valve thickened. Trace mitral regurgitation. Aortic Valve Trileaflet aortic valve. Mild aortic sclerosis. No aortic valve stenosis or regurgitation. Tricuspid Valve Thickened tricuspid valve leaflets. Mild tricuspid regurgitation. Mild pulmonary hypertension. Right ventricular systolic pressure estimated to be elevated at 42mmHg. Pulmonic Valve Pulmonic valve not well visualized, grossly normal. Trace pulmonic regurgitation. Pericardium Small pericardial effusion. No echocardiographic findings to suggest a hemodynamically significant pericardial effusion. Great Vessels Normal size aortic root. Upper normal size inferior vena cava. CONCLUSIONS Normal size left ventricle. Moderate concentric left ventricular hypertrophy. No obvious regional wall motion abnormalities. Normal left ventricular ejection fraction visually estimated at > 65%. Abnormal relaxation filling pattern of the left ventricle for age (stage 1 diastolic dysfunction). Normal right ventricular size and function. Normal atrial size. Trace mitral regurgitation. Mild tricuspid regurgitation. Mild pulmonary hypertension. Trace pulmonic regurgitation. Small pericardial effusion. No echocardiographic findings to suggest a hemodynamically significant pericardial effusion. Upper normal size inferior vena cava. Yonathan Nichole M.D. (Electronically Signed) Final Date: 28 Jul 2016 17:03 MEASUREMENTS (Male / Female) Normal Values 2D ECHO LV Diastolic Diameter PLAX 3.8 cm 4.2 - 5.9 / 3.9 - 5.3 cm LV Systolic Diameter PLAX 2.3 cm 2.1 - 4.0 cm LV Fractional Shortening PLAX 39.5 % 25 - 46 % LV Ejection Fraction 2D Teich 70.8 % IVS Diastolic Thickness 1.4 cm LVPW Diastolic Thickness 1.4 cm LV Relative Wall Thickness 0.7 RV Internal Dim ED PLAX 2.8 cm 1.9 - 3.8 cm LVOT Diameter 1.9 cm Aortic Root Diameter 2.5 cm LA Systolic Diameter LX 4.1 cm 3.0 - 4.0 / 2.7 - 3.8 cm LA Volume 29.0 cm 18 - 58 / 22 - 52 cm Ascending Aorta Diameter 3.1 cm DOPPLER AV Peak Velocity 142.0 cm/s AV Peak Gradient 8.1 mmHg AV Mean Velocity 90.0 cm/s AV Mean Gradient 4.0 mmHg AV Velocity Time Integral 40.8 cm LVOT Peak Velocity 106.0 cm/s LVOT Peak Gradient 4.5 mmHg LVOT Mean Velocity 79.4 cm/s LVOT Mean Gradient 3.0 mmHg LVOT Velocity Time Integral 27.8 cm LVOT Stroke Volume 78.8 cm AV Area Cont Eq vti 1.9 cm AV Area Cont Eq pk 2.1 cm MV Peak Velocity 108.0 cm/s MV Peak Gradient 4.7 mmHg MV Mean Velocity 63.3 cm/s MV Mean Gradient 2.0 mmHg Mitral E Point Velocity 59.0 cm/s Mitral A Point Velocity 91.2 cm/s Mitral E to A Ratio 0.6 MV PHT Velocity 79.9 cm/s MV Deceleration Canyon 223.0 cm/s MV Pressure Half Time 107.5 ms MV Area PHT 2.0 cm MV Deceleration Time 283.0 ms TR Peak Velocity 305.0 cm/s TR Peak Gradient 37.2 mmHg Right Atrial Pressure 5.0 mmHg Pulmonary Artery Systolic Pressu 42.2 mmHg Right Ventricular Systolic Press 42.2 mmHg PV Peak Velocity 76.0 cm/s PV Peak Gradient 2.3 mmHg PV Mean Velocity 56.4 cm/s PV Mean Gradient 1.0 mmHg PV Velocity Time Integral 21.0 cm LV E' Lateral Velocity 7.5 cm/s Mitral E to LV E' Lateral Ratio 7.9 LV E' Septal Velocity 4.1 cm/s Mitral E to LV E' Septal Ratio 14.3
--- NOTE | 2016-07-28 21:06 | Operative Report ---
Operative/Inv Procedure Report Surgery Date: 07/28/16 Name of Procedure: Left hip cemented hemiarthroplasty Pre-Operative Diagnosis: Left femoral neck fracture Post-Operative Diagnosis: Left femoral neck fracture Estimated Blood Loss: 200mL Surgeon/Campaign Manager: Wild DAVIS, Dc Richter MD Anesthesia: general endotracheal tube Implants: Styker Accolade Cemented Hemiarthroplasty Size 4C stem Size 45 head Urine Output: 250mL Drains: None Specimens: Femoral head; sent to pathology per hospital protocol Complications: None Condition: Stable Operative/Procedure Note Note: Indication for Procedure: Frances Smith is an 86 year old female with a history hypertension, hypothyroid, TIAs, and CHF who presented to [facility] following a mechanical fall. She was found to have a left displaced femoral neck fracture. She was admitted to the medical service and evaluated by the medical team and cardiology. We discussed the risks, benefits, and alternative for her fracture, and she was amenable to proceeding with left hip hemiarthroplasty. She was taken to the OR following medical and cardiac optimization. Operative Report: Frances Smith arrived at the [facility] on 07/28/2016. She was met in the pre- operative area, where her operative extremity was marked and her medical history reviewed. She was taken into the operating room, where a time out was performed to verify the patient, the operative extremity, and the planned procedure. She was induced under general anesthesia and then moved to the OR table. She was positioned lateral decubitus with the left side up; an SCD was applied to the right lower leg for mechanical VTE prophylaxis. No chemoprophylaxis was administered. Prophylactic clindmycin was given. The left lower extremity was prepped and draped in the usual sterile fashion. A lateral incision was made over the posterior third of the greater trochanter. This was taken down to the tensor fascia tuyet, which was carefully split longitudially. Proximally, the muscle of the gluteus halle was split bluntly. A charnley retractor was placed, and the bursa overlying the trochanter was resected. The sciatic nerve was identified and carefully protected throughout the case. The piriformis tendon was identified and, with the leg externally rotated, it was detached from the trochanter. The tendon was tagged with #5 fiberwire. The superior and inferior gemellus and obturator internus were also detached and tagged. The capsule was split and the fracture identified. A ronguer was used to remove bone fragments, and an oscillating saw used to cut the femoral neck one finger breadth above the lesser trochanter. The femoral head was then removed with a corkscrew and measured at 45mm. A trial was used to confirm the femoral head sizing. The acetabulum was palpated and noted to be in good condition without significant erosion or fracture. The labrum remained intact. The femoral neck was elevated with a retractor. A box maker was used to remove lateral bone next to the trochanter. A canal finder opened the canal, followed by a series of broaches up to Size 4. This was carefully impacted down to the level of the femoral neck cut. A standard stem was placed with a 45mm head. The hip was reduced. Leg lengths were noted to be the same as compared to the nonoperative leg by palpation. The hip was taken through a range of motion and noted to be stable. The hip was carefully dislocated and the trials removed. A cement restrictor was placed. The hip was thoroughly irrigated with saline with bacitracin. The femoral canal was dried and tobramycin cement was inserted, followed by the femoral implant. The implant was lateralized and held in placed until the cement was hard. The trial head was again placed and the hip reduced to verify leg length and stability. The hip was again dislocated and irrigated. The unipolar head implant was impacted into place and the final hip reduction performed. Two 2.0mm drill holes were placed in the greater trochanter and the piriformis and short external rotator tendon tagging sutures were passed and tied with the hip in abduction and external rotation. The incision was again irrigated. The wound was then closed in layers using #1 vicryl for the fascia, followed by 0 vicryl and 2-0 vicryl. The skin was closed with maría elena. The incision was dressed with xeroform, gauze, and ABD pads, and secured with foam tape. An abduction pillow was placed between her legs. The patient was placed supine, extubated, and taken to the recover room in stable condition.
--- NOTE | 2016-07-28 21:25 | RADIOLOGY REPORT ---
EXAMINATION: XR HIP, LEFT CLINICAL INFORMATION: Postoperative left hip arthroplasty. COMPARISON: 07/27/2016 TECHNIQUE: Two views of the left hip. FINDINGS: There is a new left hip hemiarthroplasty. The femoral head component articulates appropriately with the acetabulum. No periprosthetic lucency or fracture. Postoperative soft tissue gas is present. There are overlying skin maría elena. IMPRESSION: Normal postoperative appearance of the left total hip prosthesis.
--- NOTE | 2016-07-28 21:27 | PN- Orthopedic ---
Surgical Brief Attending Note Brief Attending Note: Post-op Evaluation: Patient examined in PACU. Confused, agitated, given haldol after repeated attempts to pull lines and get out of bed. Post-op dressing and osuna remained in place. Intact ankle DF/PF and EHL/FHL on the left.. X-rays of left hip show stable hemiarthroplasty; no evidence of fracture, dislocation, or component malposition. A/P: 86yo F POD0 left hip cemented hemiarthroplasty. 1. WBAT LLE 2. Posterior hip precautions/abduction pillow 3. SCDs, recommend lovenox 40mg qd x6wks for VTE prophyalxis starting POD#1 4. Abx x 24hr 5. Transfer to telemetry for monitoring per cardiology recommendations 6. Out of bed with PT 7. Pain control 8. Dressing change on POD#2 9. Appreciate medicine/cardiology care of this patient.
[2016-07-28 22:03] VITALS: BP 124/56
--- NOTE | 2016-07-28 23:20 | PN- Orthopedic ---
Subjective Subjective: POSTOP CHECK sleeping comfortably, no active complaints Objective Vital Signs and I&Os Vital Signs Date Time Temp Pulse Resp B/P B/P Pulse O2 O2 Flow FiO2 Mean Ox Delivery Rate 07/288 66 07/28 2203 97.8 66 16 124/56 92 Room Air 07/28 1445 97.5 68 20 152/83 93 Room Air 07/28 1140 Room Air 07/28 0810 86 146/78 07/28 0810 86 146/78 07/28 0810 86 146/78 07/28 0616 99.0 86 20 146/78 95 Room Air Intake & Output 07/28 1600 07/28 0800 07/28 0000 07/27 1600 07/27 0800 07/27 0000 Intake Total 600 20 550 Output Total 275 310 6086 600 Balance 300 -255 -850 -600 Intake, IV 600 20 Intake, Oral 0 550 Output, Urine 091 388 3851 600 Patient 127 lb Weight Weight Reported by Patient Measurement Method Physical Exam: GEN: NAD CARD: [id number] PULM: CTAB EXT: left hip dsg cdi, +gross motor bl feet, no palp pedal pulses, + DP signals bl, +dorsi/plantar flexion (limited but equal bl), abduction pillow in place Assessment/Plan Assessment/Plan POD0 sp l hemiarthroplasty sp fall, stable PLAN: prn pain meds oob, wbat, pt lovenox 40daily clinda x23h postop tele, medical mgmt per medical team
[2016-07-28 23:30] VITALS: BP 108/00
[2016-07-29 08:09] LABS: ABSOLUTE BASOPHIL COUNT 0 /CUMM (0.0-0.2); ABSOLUTE EOSINOPHIL COUNT 0 /CUMM (0.0-0.7); ABSOLUTE LYMPH COUNT 0.4 /CUMM (1.2-3.4); ABSOLUTE MONOCYTE COUNT 0.6 /CUMM (0.10-0.60); EOSINOPHIL % 0 % (0-5); MEAN CORPUSCULAR HGB 26.9 PG (27.0-31.0)
--- NOTE | 2016-07-29 08:13 | PN- Orthopedic ---
Subjective Subjective: Patient seen and examined this morning. She is resting comfortably, complains of soreness in her left buttock. Denies overnight issues. Per RN, patient very agitated through the night, requiring restraints. Pulled at IVs and tried to get out of bed several times. Difficulty maintaining abduction pillow. Mauro and post-op dressing remain in place. No overnight tele events. Objective Vital Signs and I&Os Vital Signs Date Time Temp Pulse Resp B/P B/P Pulse O2 O2 Flow FiO2 Mean Ox Delivery Rate 07/29 0000 94 Nasal 2.5L Cannula 07/28 2330 98.1 92 20 108/00 97 Nasal 2.0L Cannula 07/28 2228 66 07/28 2203 97.8 66 16 124/56 92 Room Air 07/28 2200 95 Nasal 2.0L Cannula 07/28 1445 97.5 68 20 152/83 93 Room Air 07/28 1140 Room Air 07/28 0810 86 146/78 07/28 0810 86 146/78 07/28 0810 86 146/78 Intake & Output 07/29 1600 07/29 0800 07/29 0000 07/28 1600 07/28 0800 05 0000 Intake Total 600 0 600 20 550 Output Total 100 400 437 671 3819 Balance 500 -400 300 -255 -850 Intake, IV 600 600 20 Intake, Oral 0 0 0 550 Number 0 Bowel Movements Output, Urine 100 400 245 097 1584 Patient 127 lb Weight Weight Reported by Patient Measurement Method Physical Exam: Alert, awake, pleasant. Nasal cannula at 2L Left Lower Extremity: Dressing clean, dry, intact Tender over lateral and anterior thigh; no significant calf pain Intact EHL/FHL, ankle DF/PF Sensation intact to light touch over left foot Foot warm, well-perfused. Assessment/Plan Assessment/Plan 86yo F POD#1 left hip cemented hemiarthroplasty. Agitation overnight requiring restraints. 1. WBAT LLE 2. Posterior hip precautions, abduction pillow 3. SCDs in bed, recommend lovenox 40mg qd for VTE chemoprophylaxis 4. Pain control, limit narcotics 5. Follow up morning labs 6. Out of bed with PT 7. Dressing change POD#2 8. Appreciate medical and cardiology care of this patient. Please call with questions or concerns. Plan for follow up in clinic in 2wk for reevaluation. Office phone number is [phone] Attending MD Review Statement Attending Statement Attending MD Statement: examined this patient, discussed w/nursing, reviewed images
[2016-07-29 08:17] VITALS: BP 104/64
[2016-07-29 08:25] LABS: ABSOLUTE GRANULOCYTE CT 15.2 /CUMM (1.4-6.5); BASOPHIL % 0 % (0.0-2.0); HEMATOCRIT 36.8 % (37-47); MEAN CORPUSCULAR HGB CONC 33.7 G/DL (33.0-37.0); MEAN CORPUSCULAR VOLUME 79.7 FL (81.0-99.0); PLATELET COUNT 136 /CUMM (130-400); RBC DISTRIBUTION WIDTH 14.6 % (11.5-14.5); RED BLOOD CELL CT 4.62 /CUMM (4.20-5.40); WHITE BLOOD CELL COUNT 16.1 /CUMM (4.8-10.8)
--- NOTE | 2016-07-29 08:58 | PN- Orthopedic ---
Subjective Subjective: The patient was seen this morning postoperatively day #1. She remains confused and appears relatively comfortable denying pain at the current time. Objective Vital Signs and I&Os Vital Signs Date Time Temp Pulse Resp B/P B/P Pulse O2 O2 Flow FiO2 Mean Ox Delivery Rate 07/29 0817 97.5 86 20 104/64 97 Nasal 2.0L Cannula 07/29 0800 94 Nasal 2.5L Cannula 07/29 0000 94 Nasal 2.5L Cannula 07/28 2330 98.1 92 20 108/00 97 Nasal 2.0L Cannula 07/28 2228 66 / 2203 97.8 66 16 124/56 92 Room Air 07/28 2200 95 Nasal 2.0L Cannula 07/28 1445 97.5 68 20 152/83 93 Room Air 07/28 1140 Room Air Intake & Output 07/29 1600 07/29 0800 05/16 0000 / 1600 07/28 0800 05 0000 Intake Total 600 0 600 20 550 Output Total 100 400 199 743 5131 Balance 500 -400 300 -255 -850 Intake, IV 600 600 20 Intake, Oral 0 0 0 550 Number 0 Bowel Movements Output, Urine 100 [phone] 3093 Patient 127 lb Weight Weight Reported by Patient Measurement Method Physical Exam: Gen.: Alert and confused in no obvious distress Skin: Warm and dry Extremities: Bilateral lower extremities are warm without calf tenderness or significant edema. Gross motor and sensory are intact. Left hip surgical dressing is clean, dry, and intact. Assessment/Plan Assessment/Plan Assessment: 86-year-old female status post left hip hemiarthroplasty postoperative day #1. The patient is progressing as expected and her pain is under adequate control. Recommendations: Out of bed with physical therapy patient is weightbearing as tolerated Daily Lovenox for DVT prophylaxis Continue current pain regiment Follow-up morning laboratory studies May DC Mauro catheter First surgical dressing change tomorrow Continue care per primary team
[2016-07-29 09:40] LABS: GRANULOCYTE % 93.9 % (42.2-75.2)
--- NOTE | 2016-07-29 10:42 | PN- Housestaff ---
See Addendum Subjective Follow-up For: 1. Mechanical fall with displaced femoral neck fracture s/p hemiarthroplasty. 2. Hypothyroidism 3. COPD. 4. CKD stage III Tele-Events Since Last Visit: Sinus rhythm, heartrate 72 -92 ,first-degree heart block with CO being 0.24-0.22 Subjective: POD#1. Alert but mildly confused afebrile, denies active pain, hemodynamically stable, saturating well on 2 L of oxygen. Patient is complaining of dry mouth. Review of Systems Constitutional: Reports: see HPI. Objective Last 24 Hrs of Vital Signs/I&O Vital Signs Date Time Temp Pulse Resp B/P B/P Pulse O2 O2 Flow FiO2 Mean Ox Delivery Rate 07/29 0930 98 106/64 07/29 0923 98 104/64 07/29 0923 98 104/64 07/29 0817 97.5 86 20 104/64 97 Nasal 2.0L Cannula 07/29 0800 94 Nasal 2.5L Cannula 07/29 0000 94 Nasal 2.5L Cannula 07/28 2330 98.1 92 20 108/00 97 Nasal 2.0L Cannula 07/28 2228 66 07/28 2203 97.8 66 16 124/56 92 Room Air 07/28 2200 95 Nasal 2.0L Cannula 07/28 1445 97.5 68 20 152/83 93 Room Air 07/28 1140 Room Air Intake & Output 07/29 1600 07/29 0800 07/29 0000 Intake Total 600 0 Output Total 100 400 Balance 500 -400 Intake, IV 600 Intake, Oral 0 0 Number 0 Bowel Movements Output, Urine 100 400 Physical Exam General Appearance: Alert, Oriented X3, Cooperative, No Acute Distress HEENT: Atraumatic, PERRLA, EOMI, dry mucous membrain with some dry blood over the tounge Cardiovascular: Regular Rate, Normal S1, Normal S2, No Murmurs Lungs: Clear to Auscultation, Normal Air Movement Abdomen: Soft, No Tenderness Neurological: Normal Speech Extremities: No Clubbing, No Cyanosis, No Edema, 1st toe deformities B/L, left hip surgical dressing is clean Current Medications: Current Medications Sig/Moises Start time Last Medication Dose Route Stop Time Status Admin Acetaminophen 1,000 MG TID 07/29 1000 CAN IV Acetaminophen 1,000 MG TID 07/29 1000 AC 07/29 PO 1110 Acetaminophen 650 MG Q4P PRN 07/28 2045 DC PO Acetaminophen 1,000 MG Q8 07/28 0945 DC 07/28 IV 1333 Acetaminophen 650 MG Q6P PRN 07/27 1715 DC PO Amlodipine Besylate 5 MG DAILY 07/29 1000 AC 07/29 PO 0930 Amlodipine Besylate 5 MG DAILY 07/28 1000 DC 07/28 PO 0810 Atorvastatin Calcium 10 MG 1700 07/29 1700 AC PO Atorvastatin Calcium 10 MG 1700 07/27 1700 DC 07/28 PO 1623 Clindamycin 600 MG IQ8 07/29 0000 DC 07/29 Dextrose/Water 50 ML IV 07/29 0829 0709 Dexamethasone 4 MG .STK-MED ONE 07/28 1710 DC IM 07/28 1711 Dextrose/Sodium 1,000 ML Q13H 07/28 2045 DC 07/29 Chloride IV 0930 Dextrose/Sodium 1,000 ML Q13H 07/28 0800 DC 07/28 Chloride IV 0801 Enoxaparin Sodium 40 MG DAILY 07/29 1000 AC 07/29 SC 0923 Fentanyl Citrate 200 MCG .STK-MED ONE 07/28 1710 DC IM 07/28 1711 Glycerin 2 SPRAY Q2P PRN 07/29 0945 AC PO Haloperidol 5 MG .STK-MED ONE 07/28 2050 DC IM 07/28 2051 Heparin Sodium 5,000 UNIT Q8 07/27 1620 DC 07/28 (Porcine) SC 1334 Hydromorphone HCl 2 MG .STK-MED ONE 07/28 2045 DC IM 07/28 204 Hydromorphone HCl 2 MG .STK-MED ONE 07/28 1710 DC IM 07/28 1711 Labetalol HCl 300 MG BID 07/28 2200 AC 07/29 PO 0923 Labetalol HCl 300 MG BID 07/28 1000 DC 07/28 PO 0810 Levothyroxine Sodium 0.088 MG DAILY AC 07/29 0700 AC 07/29 PO 0709 Levothyroxine Sodium 0.088 MG DAILY AC 07/28 0700 DC 07/28 PO 0547 Losartan Potassium 100 MG DAILY 07/29 1000 AC 07/29 PO 0923 Losartan Potassium 100 MG DAILY 07/28 1000 DC 07/28 PO 0810 Meperidine HCl 50 MG .STK-MED ONE 07/28 2130 DC IM 05/15 2132 Morphine Sulfate 1 MG Q6 07/29 1200 DC IV Morphine Sulfate 1 MG Q6 PRN 07/29 1130 AC IV Morphine Sulfate 2 MG Q4P PRN 07/28 2045 DC 07/29 IV 0930 Ondansetron HCl 4 MG .STK-MED ONE 07/28 1710 DC IM 07/28 1711 Patient Medication 1 ED .STK-MED ONE 07/28 1400 DC Teaching ED 07/28 1401 Patient Medication 1 UNIT ONE NR 07/28 1000 DC Teaching ED 07/28 1600 Potassium Chloride 40 MEQ ONCE ONE 07/28 1315 DC 07/28 PO 07/28 1316 1335 Potassium Chloride 10 MEQ ONCE ONE 07/28 1315 DC 07/28 IV 07/28 1316 1334 Sodium Chloride 1,000 ML Q13H 07/29 0945 AC 07/29 IV 1110 Tramadol HCl 50 MG Q6P PRN 07/28 204 AC PO Tramadol HCl 50 MG Q6P PRN 07/28 1000 DC 07/28 PO 1011 Last 24 Hrs of Lab/[place] Results Last 24 Hrs of Labs/Mics: Laboratory Tests 07/29/16 0622: Anion Gap 10, Estimated GFR 35 L, BUN/Creatinine Ratio 18.6, Magnesium 2.1, CBC w Diff NO MAN DIFF REQ, RBC 4.62, MCV 79.7 L, MCH 26.9 L, RDW 14.6 H, MPV 9.0 , Gran % 93.9 H, Lymphocytes % 2.6 L, Monocytes % 3.5, Eosinophils % 0, Basophils % 0 L, Absolute Granulocytes 15.2 H, Absolute Lymphocytes 0.4 L, Absolute Monocytes 0.6, Absolute Eosinophils 0, Absolute Basophils 0, PUBS MCHC 33.7 Assessment/Plan Assessment: This is 86 year female with PMH of diastolic heart failure, hypertension, hypothyroidism, TIA 6 years ago, breast lumpectomies, 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 #Left femoral neck fracture S/P hemiarthroplasty POD#1 Patient presented with left hip pain post mechanical fall. She was found to have left femoral neck fracture. She went for hemiarthroplasty yesterday. Given that she has a history of HFpEF, HTN, and recurrent bilateral pleural effusions, cardiology recommended telemetry monitoring postoperatively for 24 hours. * Decrease morphine frequency to be 1 mg IV every 6 when necessary * Try acetaminophen oral to control pain * Out of bed with physical therapy patient is weightbearing as tolerated as per ortho * First surgical dressing change tomorrow * Posterior hip precautions, abduction pillow #Leukocytosis No symptom or signs suggestive of infection, most likely secondary to stress post surgery. * We will repeat CBC tomorrow #Creatinine increased to 1.4 Patient is complaining of a dry mouth, she was dehydrated on physical exam. * On increase IV fluids to 100 mL per hour * Repeat renal function tomorrow #Hypertension * Losartan 100 mg * Labetalol 300 mg twice a day * Lasix 20 mg * Amlodipine 5 mg daily. #Hypothyroidism * Synthroid 88 g daily #History of TIA * Statin * Aspirin as an hold since yesterday because of surgery, we will start after confirming with orthopedic Heart healthy diet DVT prophylaxis SC Lovenox Full code Problem List: 1. Diastolic heart failure 2. Hypothyroid 3. HTN (hypertension) Pain Ratin Pain Location: left hip Pain Goal: Remain pain free Pain Plan: See A&P Tomorrow's Labs & Rationales: BEP to follow Cr. CBC to follow WBCs Consulting Request: Consulting Specialty: Orthopedics Consulting Physician: Dr. Rome Reason for Consult: lt. femoral neck fracture
[2016-07-29 16:44] VITALS: BP 102/58
[2016-07-29 22:23] VITALS: BP 138/58
[2016-07-29 23:05] VITALS: BP 124/60
[2016-07-30 00:31] VITALS: BP 118/52
--- NOTE | 2016-07-30 07:38 | PN- Housestaff ---
See Addendum Subjective Follow-up For: 1. Mechanical fall with displaced femoral neck fracture s/p hemiarthroplasty. 2. Hypothyroidism 3. COPD. 4. CKD stage III Tele-Events Since Last Visit: Sinus rhythms 59-83. First-degree heart block, some PVCs, PACs and bigeminy. About 2200 patient had sinus tachycardia up to 120 Subjective: Alert and oriented but confused. Afebrile, hemodynamically stable, saturating well on 2 L of oxygen. This morning patient was confused and mildly agitated, she was refusing vitals, blood work, medications, or oxygen. Patient was saying "I wonder why I am here and when did I come here". Patient denies pain or any other active complaints. Review of Systems Constitutional: Reports: no symptoms. Objective Last 24 Hrs of Vital Signs/I&O Vital Signs Date Time Temp Pulse Resp B/P B/P Pulse O2 O2 Flow FiO2 Mean Ox Delivery Rate 07/30 0031 98.8 65 20 118/52 97 Nasal 2.0L Cannula 07/30 0000 Nasal 2.5L Cannula 07/29 2305 98.8 121 20 124/60 99 Nasal 2.5L Cannula 07/29 2223 98.9 80 20 138/58 98 Nasal 2.0L Cannula 07/29 2129 80 122/52 07/29 1644 97.9 70 18 102/58 97 Nasal Cannula 07/29 1600 97 Nasal 2.5L Cannula Intake & Output 07/30 1600 07/30 0800 07/30 0000 Intake Total 850 1940 Output Total 250 100 Balance 600 1840 Intake, IV 500 1300 Intake, Oral 350 640 Number 0 Bowel Movements Output, Urine 250 100 Physical Exam General Appearance: Alert, Oriented X3, Cooperative, mildly agitated and confused HEENT: Atraumatic, PERRLA, EOMI, dry Mucous membrain Cardiovascular: Regular Rate, Normal S1, Normal S2, No Murmurs Lungs: Clear to Auscultation, Normal Air Movement Abdomen: Soft, No Tenderness Neurological: Normal Speech, confused Extremities: No Clubbing, No Cyanosis, No Edema Current Medications: Current Medications Sig/Moises Start time Last Medication Dose Route Stop Time Status Admin Acetaminophen 1,000 MG TID 07/29 1000 AC 07/30 PO 0028 Amlodipine Besylate 5 MG DAILY 07/29 1000 AC 07/29 PO 0930 Atorvastatin Calcium 10 MG 1700 07/29 1700 AC 07/29 PO 1829 Benzocaine/Menthol 1 ELAINA TID 07/29 1600 AC 07/29 PO 2129 Enoxaparin Sodium 40 MG DAILY 07/29 1000 AC 07/29 SC 0923 Glycerin 2 SPRAY Q2P PRN 07/29 0945 AC 07/29 PO 1829 Labetalol HCl 300 MG BID 07/28 2200 AC 07/29 PO 2129 Levothyroxine Sodium 0.088 MG DAILY AC 07/29 0700 AC 07/29 PO 0709 Losartan Potassium 100 MG DAILY 07/29 1000 AC 07/29 PO 0923 Morphine Sulfate 1 MG Q6 07/29 1200 DC IV Morphine Sulfate 1 MG Q6 PRN 07/29 1130 DC IV Patient Medication 1 ED .STK-MED ONE 07/29 1344 DC Teaching ED 07/29 1345 Sodium Chloride 1,000 ML Q13H 07/29 0945 AC 07/29 IV 1559 Tramadol HCl 50 MG Q6P PRN 07/28 2044 AC 07/29 PO 1855 Last 24 Hrs of Lab/[place] Results Last 24 Hrs of Labs/Mics: Laboratory Tests 07/30/16 0625: Anion Gap 6, Estimated GFR 27 L, BUN/Creatinine Ratio 21.1, CBC w Diff NO MAN DIFF REQ, RBC 3.34 L, MCV 78.8 L, MCH 26.4 L, RDW 14.9 H, MPV 8.9, Gran % 88.9 H, Lymphocytes % 6.2 L, Monocytes % 4.9, Eosinophils % 0, Basophils % 0 L, Absolute Granulocytes 9.0 H, Absolute Lymphocytes 0.6 L, Absolute Monocytes 0.5, Absolute Eosinophils 0, Absolute Basophils 0, PUBS MCHC 33.5 Assessment/Plan Assessment: This is 86 year female with PMH of diastolic heart failure, hypertension, hypothyroidism, TIA 6 years ago, breast lumpectomies, 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 #Left femoral neck fracture S/P hemiarthroplasty POD#2 Patient presented with left hip pain post mechanical fall. She was found to have left femoral neck fracture. She went for hemiarthroplasty POD#2. Given that she has a history of HFpEF, HTN, and recurrent bilateral pleural effusions, cardiology recommended telemetry monitoring postoperatively for 24 hours. Patient will most likely be transferred back to general medicine floor later today. Given the confusion morphine was DC'd yesterday. * Continue acetaminophen oral to control pain * Out of bed with physical therapy patient is weightbearing as tolerated as per ortho * First surgical dressing change today * Posterior hip precautions, abduction pillow #Acute blood loss anemia Hemoglobin was 12 yesterday and dropped to 8.8 this a.m. this is a normal amount blood loss post hemiarthroplasty. * CBC daily to keep hemoglobin above 8 #BANDAR Patient creatinine on admission was 1.2 it's improved with hydration, however it's increased to 1.4 yesterday and 1.8 this a.m. this most likely secondary to dehydration given that the patient is confused, has poor oral intake, and some anticipated blood loss because of hemiarthroplasty. * We'll continue IV normal saline at rate of 100 mL per hour * We will repeat renal function tomorrow #Confusion Patient was found to be mildly confused post surgery, this is most likely because of dehydration, opioids, anesthesia, and age. * We will avoid opioids and other medications that can alter mental status. * We will hydrate and ensure a good sleep during night. #Leukocytosis Yesterday WBCs increased to 16.1 that was most likely reactive post surgery. This morning WBCs is back to normal. * Repeat CBC tomorrow #Hypertension * Losartan 100 mg * Labetalol 300 mg twice a day * Lasix 20 mg * Amlodipine 5 mg daily. #Hypothyroidism * Synthroid 88 g daily #History of TIA * Statin * Aspirin as an hold since yesterday because of surgery, we will start after confirming with orthopedic Heart healthy diet DVT prophylaxis SC Lovenox Full code Problem List: 1. Diastolic heart failure 2. Hypothyroid 3. HTN (hypertension) 4. Fractured femoral neck Pain Ratin Pain Location: left hip Pain Goal: Remain pain free Pain Plan: See assessment and plan Tomorrow's Labs & Rationales: CBC to follow H&H drop Be be to follow renal function Consulting Request: Consulting Specialty: Orthopedics Consulting Physician: Dr. Rome Reason for Consult: lt. femoral neck fracture
[2016-07-30 08:05] LABS: ABSOLUTE BASOPHIL COUNT 0 /CUMM (0.0-0.2); ABSOLUTE EOSINOPHIL COUNT 0 /CUMM (0.0-0.7); ABSOLUTE LYMPH COUNT 0.6 /CUMM (1.2-3.4); ABSOLUTE MONOCYTE COUNT 0.5 /CUMM (0.10-0.60); BASOPHIL % 0 % (0.0-2.0); EOSINOPHIL % 0 % (0-5); MEAN CORPUSCULAR HGB 26.4 PG (27.0-31.0); MEAN CORPUSCULAR HGB CONC 33.5 G/DL (33.0-37.0); MEAN CORPUSCULAR VOLUME 78.8 FL (81.0-99.0); MEAN PLATELET VOLUME 8.9 FL (7.4-10.4); RBC DISTRIBUTION WIDTH 14.9 % (11.5-14.5); WHITE BLOOD CELL COUNT 10.1 /CUMM (4.8-10.8)
[2016-07-30 08:53] LABS: RED BLOOD CELL CT 3.34 /CUMM (4.20-5.40)
[2016-07-30 08:54] LABS: GRANULOCYTE % 88.9 % (42.2-75.2); HEMATOCRIT 26.3 % (37-47); PLATELET COUNT 117 /CUMM (130-400)
--- NOTE | 2016-07-30 09:58 | PN- Orthopedic ---
Subjective Subjective: Asking where she is, why she's here, and where her is. No other complaints. Objective Vital Signs and I&Os Vital Signs Date Time Temp Pulse Resp B/P B/P Pulse O2 O2 Flow FiO2 Mean Ox Delivery Rate 07/30 0031 98.8 65 20 118/52 97 Nasal 2.0L Cannula 07/30 0000 Nasal 2.5L Cannula 07/29 2305 98.8 121 20 124/60 99 Nasal 2.5L Cannula 07/29 2223 98.9 80 20 138/58 98 Nasal 2.0L Cannula 07/29 2129 80 122/52 07/29 1644 97.9 70 18 102/58 97 Nasal Cannula 07/29 1600 97 Nasal 2.5L Cannula Intake & Output 07/30 0800 07/30 0000 07/29 1600 07/29 0800 07/29 0000 Intake Total 850 1940 1075 600 0 Output Total 250 100 25 100 400 Balance 600 1840 1050 500 -400 Intake, IV 500 1300 675 600 Intake, Oral 350 640 400 0 0 Number 0 0 Bowel Movements Output, Urine 250 100 25 100 400 Physical Exam: Extremities - left hip dressing changed. incision well approximated with maría elena. no erythema or exudates. dry guaze dressing replaced. calves soft and nontender b/l. nvi. athrombics in place. Current Medications: Current Medications Sig/Moises Start time Last Medication Dose Route Stop Time Status Admin Acetaminophen 1,000 MG TID 07/29 1000 AC 07/30 PO 0028 Amlodipine Besylate 5 MG DAILY 07/29 1000 AC 07/29 PO 0930 Atorvastatin Calcium 10 MG 1700 07/29 1700 AC 07/29 PO 1829 Benzocaine/Menthol 1 ELAINA TID 07/29 1600 AC 07/29 PO 2129 Enoxaparin Sodium 40 MG DAILY 07/29 1000 AC 07/29 SC 0923 Glycerin 2 SPRAY Q2P PRN 07/29 0945 AC 07/29 PO 182 Labetalol HCl 300 MG BID 07/28 2200 AC 07/29 PO 2129 Levothyroxine Sodium 0.088 MG DAILY AC 07/29 0700 AC 07/29 PO 0709 Losartan Potassium 100 MG DAILY 07/29 1000 AC 07/29 PO 0923 Morphine Sulfate 1 MG Q6 07/29 1200 DC IV Morphine Sulfate 1 MG Q6 PRN 07/29 1130 DC IV Patient Medication 1 ED .STK-MED ONE 07/29 1344 DC Teaching ED 07/29 1345 Sodium Chloride 1,000 ML Q13H 07/29 0945 AC 07/29 IV 1559 Tramadol HCl 50 MG Q6P PRN 07/28 2044 AC 07/29 PO 1855 Results Last 48 Hours of Labs: Laboratory Tests 07/30 07/29 0625 0622 Chemistry Sodium (137 - 145 mmol/L) 127 L 135 L Potassium (3.5 - 5.1 mmol/L) 4.4 4.3 Chloride (98 - 107 mmol/L) 96 L 101 Carbon Dioxide (22 - 30 mmol/L) 25 24 Anion Gap (5 - 16) 6 10 BUN (7 - 17 mg/dL) 38 H 26 H Creatinine (0.5 - 1.0 mg/dL) 1.8 H 1.4 H Estimated GFR (>60 ml/min) 27 L 35 L BUN/Creatinine Ratio (7 - 25 %) 21.1 18.6 Magnesium (1.6 - 2.3 mg/dL) 2.1 Hematology CBC w Diff NO MAN DIFF REQ NO MAN DIFF REQ WBC (4.8 - 10.8 /CUMM) 10.1 16.1 H RBC (4.20 - 5.40 /CUMM) 3.34 L 4.62 Hgb (12.0 - 16.0 G/DL) 8.8 L 12.4 Hct (37 - 47 %) 26.3 L 36.8 L MCV (81.0 - 99.0 FL) 78.8 L 79.7 L MCH (27.0 - 31.0 PG) 26.4 L 26.9 L RDW (11.5 - 14.5 %) 14.9 H 14.6 H Plt Count (130 - 400 /CUMM) 117 L 136 MPV (7.4 - 10.4 FL) 8.9 9.0 Gran % (42.2 - 75.2 %) 88.9 H 93.9 H Lymphocytes % (20.5 - 51.1 %) 6.2 L 2.6 L Monocytes % (1.7 - 9.3 %) 4.9 3.5 Eosinophils % (0 - 5 %) 0 0 Basophils % (0.0 - 2.0 %) 0 L 0 L Absolute Granulocytes (1.4 - 6.5 /CUMM) 9.0 H 15.2 H Absolute Lymphocytes (1.2 - 3.4 /CUMM) 0.6 L 0.4 L Absolute Monocytes (0.10 - 0.60 /CUMM) 0.5 0.6 Absolute Eosinophils (0.0 - 0.7 /CUMM) 0 0 Absolute Basophils (0.0 - 0.2 /CUMM) 0 0 PUBS MCHC (33.0 - 37.0 G/DL) 33.5 33.7 Assessment/Plan Assessment/Plan This 86-year-old female is POD#2 s/p left hip mandi continue PT. wbat. hip precautions. dressing changed. continue dry guaze dressing changes daily lovenox - dvt ppx f/u labs. transfuse per primary team if felt indicated d/c planning likely for str will need maría elena removed around POD#14 f/u with in 3-4 weeks will sign off unless issues arise
--- NOTE | 2016-07-30 10:50 | PN- Cardiology ---
Subjective Subjective: Discomfort at surgical site, but no other complaints. Specifically denies any chest discomfort, palpitations, shortness of breath, etc. Objective Vital Signs and I&Os Vital Signs Date Time Temp Pulse Resp B/P B/P Pulse O2 O2 Flow FiO2 Mean Ox Delivery Rate 07/30 0031 98.8 65 20 118/52 97 Nasal 2.0L Cannula 07/30 0000 Nasal 2.5L Cannula 07/29 2305 98.8 121 20 124/60 99 Nasal 2.5L Cannula 07/29 2223 98.9 80 20 138/58 98 Nasal 2.0L Cannula 07/29 2129 80 122/52 07/29 1644 97.9 70 18 102/58 97 Nasal Cannula 07/29 1600 97 Nasal 2.5L Cannula Intake & Output 07/30 0800 07/30 0000 07/29 1600 07/29 0807/29 0000 Intake Total 850 1940 1075 600 0 Output Total 250 100 25 100 400 Balance 600 1840 1050 500 -400 Intake, IV 500 1300 675 600 Intake, Oral 350 640 400 0 0 Number 0 0 Bowel Movements Output, Urine 250 100 25 100 400 Physical Exam: Well-developed, well-nourished elderly female and mild distress. Vital signs: See above. Lungs: Decreased breath sounds bilaterally, otherwise clear. Heart: S1, S2 with soft systolic murmur. Abdomen: Soft, nontender, positive bowel sounds. Extremities: No edema. Current Medications: Current Medications Sig/Moises Start time Last Medication Dose Route Stop Time Status Admin Acetaminophen 1,000 MG TID 07/29 1000 AC 07/30 PO 0028 Amlodipine Besylate 5 MG DAILY 07/29 1000 AC 07/29 PO 0930 Atorvastatin Calcium 10 MG 1700 07/29 1700 AC 07/29 PO 1829 Benzocaine/Menthol 1 ELAINA TID 07/29 1600 AC 07/29 PO 2129 Enoxaparin Sodium 40 MG DAILY 07/29 1000 AC 07/29 SC 0923 Glycerin 2 SPRAY Q2P PRN 07/29 0945 AC 07/29 PO 182 Labetalol HCl 300 MG BID 07/28 2200 AC 07/29 PO 212 Levothyroxine Sodium 0.088 MG DAILY AC 07/29 0700 AC 07/29 PO 0709 Losartan Potassium 100 MG DAILY 07/29 1000 AC 07/29 PO 0923 Morphine Sulfate 1 MG Q6 07/29 1200 DC IV Morphine Sulfate 1 MG Q6 PRN 07/29 1130 DC IV Patient Medication 1 ED .STK-MED ONE 07/29 1344 DC Teaching ED 07/29 1345 Sodium Chloride 1,000 ML Q13H 07/29 0945 07/29 IV 1559 Tramadol HCl 50 MG Q6P PRN 07/28 2045 AC 07/29 PO 1855 Results Last 48 Hrs of Labs/Mics: Laboratory Tests 07/30/16 0625: Anion Gap 6, Estimated GFR 27 L, BUN/Creatinine Ratio 21.1, CBC w Diff NO MAN DIFF REQ, RBC 3.34 L, MCV 78.8 L, MCH 26.4 L, RDW 14.9 H, MPV 8.9, Gran % 88.9 H, Lymphocytes % 6.2 L, Monocytes % 4.9, Eosinophils % 0, Basophils % 0 L, Absolute Granulocytes 9.0 H, Absolute Lymphocytes 0.6 L, Absolute Monocytes 0.5, Absolute Eosinophils 0, Absolute Basophils 0, PUBS MCHC 33.5 07/29/16 0622: Anion Gap 10, Estimated GFR 35 L, BUN/Creatinine Ratio 18.6, Magnesium 2.1, CBC w Diff NO MAN DIFF REQ, RBC 4.62, MCV 79.7 L, MCH 26.9 L, RDW 14.6 H, MPV 9.0 , Gran % 93.9 H, Lymphocytes % 2.6 L, Monocytes % 3.5, Eosinophils % 0, Basophils % 0 L, Absolute Granulocytes 15.2 H, Absolute Lymphocytes 0.4 L, Absolute Monocytes 0.6, Absolute Eosinophils 0, Absolute Basophils 0, PUBS MCHC 33.7 Assessment/Plan Assessment/Plan [id number] with a hx tobacco use, COPD, pulmonary nodules, recurrent bilateral pleural effusions s/p thoracentesis on multiple occasions (twice in 2006; once in 2009), 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 As she had been asymptomatic from a cardiac standpoint, she was cleared for the orthopedic surgery and underwent the left hip cemented hemiarthroplasty on 07/28. Her electrocardiogram was reviewed and is no significant electrocardiographic changes were observed. She has also remained in sinus rhythm. Continue telemetry? No
--- NOTE | 2016-07-30 10:53 | Cons- Cardiology ---
General Information and HPI Consulting Request Date of Consult: 07/28/16 Requested By: CECY SCHUSTER M.D Reason for Consult: Preoperative evaluation for cardiac clearance. Source of Information: patient, old records Exam Limitations: poor historian History of Present Illness: Mrs. 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 Mrs. Smith is a poor historian, but denies any recent chest discomfort, palpitations, shortness of breath, orthopnea, paroxysmal nocturnal dyspnea, lower extremity edema, dry cough, syncope, near syncope, lightheadedness, dizziness, or claudication. She also denies any history of coronary, valvular, dysrhythmic/conduction disease, or cardiomyopathy. Her last echocardiogram was performed on 04/26/2014 and revealed a normal-sized left ventricle with moderate concentric left ventricular hypertrophy, borderline normal LV systolic function with an estimated ejection fraction of between 50-55 %, some age-related valvular changes, mild left atrial dilatation, normal size right atrium and right ventricle, moderate pericardial effusion, and normal size aortic root. The Doppler portion of the study revealed evidence of trace mitral , trace tricuspid, and trace pulmonic regurgitation, normal estimated PA systolic pressure of 27 mmHg, and a delayed relaxation left ventricular inflow pattern consistent with stage I diastolic dysfunction. Her last stress test was a pharmacologic (Regadenoson) study was performed on and revealed a normal hemodynamic response and no clinical, electrocardiographic, or nuclear evidence of ischemia. Allergies/Medications Allergies: Coded Allergies: Iodinated Contrast Media - Oral and (IVP DYE 07/27/16) Penicillins (UNKNOWN 07/27/16) Sulfa (Sulfonamide Antibiotics) (UNKNOWN 07/27/16) Tetanus Vaccines and Toxoid (UNKNOWN 07/27/16) codeine (UNKNOWN 07/27/16) latex (ITCHING FROM LATEX GLOVES 07/27/16) Uncoded Allergies: RADIOACTIVE ISOTOPES (UNKNOWN 01/12/12) Home Med List: Amlodipine Besylate 5 MG TABLET 1 TAB PO DAILY HTN (Reported) Aspirin (Ecotrin*) 81 MG TABLET.DR 1 TAB PO DAILY tia (Reported) Atorvastatin Calcium 10 MG TABLET 1 TAB PO 1700 hld (Reported) Furosemide 20 MG TABLET 1 TAB PO DAILY HTN (Reported) Labetalol HCl 300 MG TABLET 1 TAB PO BID htn (Reported) Levothyroxine Sodium 88 MCG TABLET 1 TAB PO QAM HYPOTHYROID (Reported) Valsartan 160 MG TABLET 1 TAB PO DAILY HTN (Reported) Review of Systems Review of Systems: A 14 point system review was obtained and was noncontributory, other than as above. Past History Travel History Traveled to [place] past 21 day No Medical History Neurological: TIA EENT: NONE Cardiovascular: hypertension, hyperlipidemia Respiratory: NONE Gastrointestinal: NONE Hepatic: NONE Renal: NONE Musculoskeletal: NONE Psychiatric: NONE Endocrine: hypothyroidism Blood Disorders: NONE Cancer(s): NONE Surgical History Surgical History: breast biopsy, lumpectomy, toncillectomy, rt thigh mass rx Family History Relations & Conditions If Any: FATHER FH: myocardial infarction SISTER FHx: leukemia BROTHER FH: myocardial infarction Psychosocial History Where Do You Live? Home Who Do You Live With? spouse Services at Home: None Primary Language: Mohawk Smoking Status: Never Smoked ETOH Use: denies use Illicit Drug Use: denies illicit drug use Living Will? no Functional Ability ADLs Independent: dressing, eating, toileting, bathing. Ambulation: independent IADLs Independent: shopping, housework, finances, food prep, telephone, medication admin. Needs Assist: transportation. Exam & Diagnostic Data Vital Signs and I&O Vital Signs Date Time Temp Pulse Resp B/P B/P Pulse O2 O2 Flow FiO2 Mean Ox Delivery Rate 07/28 1140 Room Air 07/28 0810 86 14607/28 0810 86 14607/28 0810 86 14607/28 0616 99.0 86 20 146/78 95 Room Air 07/27 2148 99.3 89 20 144/80 94 07/27 1710 97.7 64 19 140/72 96 07/27 1552 97.9 64 16 167/71 95 Room Air 07/27 1447 62 18 169/72 95 Room Air 07/27 1400 96 Room Air 07/27 1319 98.0 70 20 191/75 97 Room Air Intake & Output 07/28 0807/28 0000 07/27 0807/27 0000 Intake Total 20 550 Output Total 498 568 0069 600 Balance -250 -255 -850 -600 Intake, IV 20 Intake, Oral 0 550 Output, Urine 957 847 1266 600 Patient 127 lb Weight Weight Reported by Patient Measurement Method Physical Exam: Well-developed, well-nourished elderly female in no acute distress. Vital signs: See above. HEENT: Normocephalic, atraumatic, EOMI, slightly dry mucous membranes. Neck: No JVD, soft bilateral carotid bruits versus transmitted systolic murmur. Lungs: Decreased breath sounds bilaterally. Heart: S1, S2 with a soft (grade 1/6) systolic murmur. PMI fifth ICS at MCL. No gallop or rub appreciated. Abdomen: Soft, nontender, positive bowel sounds. Extremities: No edema. Labs/[place] Results: Laboratory Tests 07/28 07/27 0705 1442 Chemistry Sodium (137 - 145 mmol/L) 140 141 Potassium (3.5 - 5.1 mmol/L) 3.2 L 3.7 Chloride (98 - 107 mmol/L) 101 103 Carbon Dioxide (22 - 30 mmol/L) 27 28 Anion Gap (5 - 16) 12 10 BUN (7 - 17 mg/dL) 16 22 H Creatinine (0.5 - 1.0 mg/dL) 1.0 1.2 H Estimated GFR (>60 ml/min) 52 L 42 L BUN/Creatinine Ratio (7 - 25 %) 16.0 18.3 Glucose (65 - 99 mg/dL) 177 H Calcium (8.4 - 10.2 mg/dL) 9.5 Total Bilirubin (0.2 - 1.3 mg/dL) 0.8 AST (14 - 36 U/L) 18 ALT (9 - 52 U/L) 25 Alkaline Phosphatase (<127 U/L) 60 Total Protein (6.3 - 8.2 g/dL) 5.9 L Albumin (3.5 - 5.0 g/dL) 3.7 Globulin (1.9 - 4.2 gm/dL) 2.2 Albumin/Globulin Ratio (1.1 - 2.2 %) 1.7 Coagulation PT (9.4 - 12.5 SEC) 11.4 INR (0.90 - 1.19) 1.09 Hematology CBC w Diff NO MAN DIFF REQ MAN DIFF ORDERED WBC (4.8 - 10.8 /CUMM) 12.6 H 7.4 RBC (4.20 - 5.40 /CUMM) 5.56 H 5.18 Hgb (12.0 - 16.0 G/DL) 14.6 13.7 Hct (37 - 47 %) 44.2 41.2 MCV (81.0 - 99.0 FL) 79.4 L 79.5 L MCH (27.0 - 31.0 PG) 26.3 L 26.4 L RDW (11.5 - 14.5 %) 14.4 14.3 Plt Count (130 - 400 /CUMM) 125 L 135 MPV (7.4 - 10.4 FL) 8.3 7.8 Gran % (42.2 - 75.2 %) 89.1 H 86.5 H Lymphocytes % (20.5 - 51.1 %) 5.8 L 9.4 L Monocytes % (1.7 - 9.3 %) 4.7 3.6 Eosinophils % (0 - 5 %) 0.3 0.2 Basophils % (0.0 - 2.0 %) 0.1 0.3 Absolute Granulocytes (1.4 - 6.5 /CUMM) 11.3 H 6.4 Segmented Neutrophils (42.2 - 75.2 %) 85 H Band Neutrophils (0.0 - 5.0 %) 3 Absolute Lymphocytes (1.2 - 3.4 /CUMM) 0.7 L 0.7 L Lymphocytes (20.5 - 51.1 %) 10 L Monocytes (1.7 - 9.3 %) 2 Absolute Monocytes (0.10 - 0.60 /CUMM) 0.6 0.3 Absolute Eosinophils (0.0 - 0.7 /CUMM) 0 0 Absolute Basophils (0.0 - 0.2 /CUMM) 0 0 Platelet Estimate (ADEQUATE) ADEQUATE Normochromic RBCs VERIFIED PUBS MCHC (33.0 - 37.0 G/DL) 33.1 33.2 07/27 1433 Urines Urine Color (YEL,AMB,STR) YEL Urine Clarity (CLEAR) CLEAR Urine pH (5.0 - 8.0) 6.5 Ur Specific [place] (1.001 - 1.035) 1.010 Urine Protein (NEG,<30 MG/DL) NEG Urine Ketones (NEG) NEG Urine Nitrite (NEG) NEG Urine Bilirubin (NEG) NEG Urine Urobilinogen (0.1 - 1.0 EU/dl) 0.2 Ur Leukocyte Esterase (NEG) NEG Ur Microscopic EXAM NOT REQUIRED Urine Hemoglobin (NEG) NEG Urine Glucose (N MG/DL) NEG Diagnostic Data EKG Results (07/27/2016) sinus rhythm, LAFB, probable LVH with repolarization abnormalities probable indeterminate age anteroseptal wall MN. Less ectopy when compared to previous tracing from earlier on 07/27/2016. CXR Results (07/27/2016): 1. Bilateral interstitial prominence. Findings may represent a degree of interstitial edema. 2. Small bilateral pleural effusions versus pleural scarring, which is chronic. 3. Chronic patchy/nodular opacities overlying the right lower lung, likely representing benign nodules. Other Results X-ray left hip (07/27/2016): 1-Left femoral neck fracture. No distal femoral fracture or acute osseous abnormality at the left knee. 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 Although she has not been seen on an outpatient basis in over 2 years and has not had an imaging stress test in over 4 years she has fortunately been asymptomatic from a cardiovascular standpoint. As such, it is felt that the risk of surgery is outweighed by the potential benefit of having this performed. Recommendations: * Proceed with proposed orthopedic surgery. * Would try and have her undergo an echocardiogram, if possible, prior to surgery to see that her left ventricular systolic function remains preserved. * Would recommend telemetry postoperatively for 24 hours with a postoperative electrocardiogram later today and tomorrow morning. * Replete potassium and maintain to maintain between 4.0-4.5 mg/L, check magnesium and maintain at or above 2.0 mEq per liter, check glycosylated hemoglobin A1c, check free T4, TSH, etc. * Given CXR findings, consider IV furosemide 20 mg 1 after her potassium is repleted and her magnesium was checked. Continue to hold oral diuretic use IV furosemide as needed. * Continue on rest of her cardiac regimen (dihydropyridine calcium channel antagonist, statin, beta lico, angiotensin receptor lico, etc.). * Restart antiplatelet therapy when cleared by orthopedic surgery. * Would, naturally, continue with prophylaxis for deep venous thrombosis. Further recommendations will follow, Thank you. Consult Acknowledgment - Thank you for your consult request.
--- NOTE | 2016-07-30 11:04 | PN- Cardiology ---
Subjective Subjective: No specific complaints. Objective Vital Signs and I&Os Vital Signs Date Time Temp Pulse Resp B/P B/P Pulse O2 O2 Flow FiO2 Mean Ox Delivery Rate 07/30 0031 98.8 65 20 118/52 97 Nasal 2.0L Cannula 07/30 0000 Nasal 2.5L Cannula 07/29 2305 98.8 121 20 124/60 99 Nasal 2.5L Cannula 07/29 2223 98.9 80 20 138/58 98 Nasal 2.0L Cannula 07/29 2129 80 122/52 07/29 1644 97.9 70 18 102/58 97 Nasal Cannula 07/29 1600 97 Nasal 2.5L Cannula Intake & Output 07/30 1600 07/30 0800 07/30 0000 07/29 1600 07/29 0800 07/29 0000 Intake Total 850 1940 1075 600 0 Output Total 250 100 25 100 400 Balance 600 1840 1050 500 -400 Intake, IV 500 1300 675 600 Intake, Oral 350 640 400 0 0 Number 0 0 Bowel Movements Output, Urine 250 100 25 100 400 Physical Exam: Well-developed, well-nourished elderly, pale appearing female and mild distress. Vital signs: See above. Lungs: Decreased breath sounds bilaterally, otherwise clear. Heart: S1, S2 with soft systolic murmur. Abdomen: Soft, nontender, positive bowel sounds. Extremities: No edema. Current Medications: Current Medications Sig/Moises Start time Last Medication Dose Route Stop Time Status Admin Acetaminophen 1,000 MG TID 07/29 1000 AC 07/30 PO 0028 Amlodipine Besylate 5 MG DAILY 07/29 1000 AC 07/29 PO 0930 Atorvastatin Calcium 10 MG 1700 07/29 1700 AC 07/29 PO 1829 Benzocaine/Menthol 1 ELAINA TID 07/29 1600 AC 07/29 PO 2129 Enoxaparin Sodium 40 MG DAILY 07/29 1000 AC 07/29 SC 0923 Glycerin 2 SPRAY Q2P PRN 07/29 0945 AC 07/29 PO 1829 Labetalol HCl 300 MG BID 07/28 2200 AC 07/29 PO 2129 Levothyroxine Sodium 0.088 MG DAILY AC 07/29 0700 AC 07/29 PO 0709 Losartan Potassium 100 MG DAILY 07/29 1000 AC 07/29 PO 0923 Morphine Sulfate 1 MG Q6 07/29 1200 DC IV Morphine Sulfate 1 MG Q6 PRN 07/29 1130 DC IV Patient Medication 1 ED .STK-MED ONE 07/29 1344 DC Teaching ED 07/29 1345 Sodium Chloride 1,000 ML Q13H 07/29 0945 AC 07/29 IV 1559 Tramadol HCl 50 MG Q6P PRN 07/28 2044 AC 07/29 PO 1855 Results Last 48 Hrs of Labs/Mics: Laboratory Tests 07/30/16 0625: Anion Gap 6, Estimated GFR 27 L, BUN/Creatinine Ratio 21.1, CBC w Diff NO MAN DIFF REQ, RBC 3.34 L, MCV 78.8 L, MCH 26.4 L, RDW 14.9 H, MPV 8.9, Gran % 88.9 H, Lymphocytes % 6.2 L, Monocytes % 4.9, Eosinophils % 0, Basophils % 0 L, Absolute Granulocytes 9.0 H, Absolute Lymphocytes 0.6 L, Absolute Monocytes 0.5, Absolute Eosinophils 0, Absolute Basophils 0, PUBS MCHC 33.5 07/29/16 0622: Anion Gap 10, Estimated GFR 35 L, BUN/Creatinine Ratio 18.6, Magnesium 2.1, CBC w Diff NO MAN DIFF REQ, RBC 4.62, MCV 79.7 L, MCH 26.9 L, RDW 14.6 H, MPV 9.0 , Gran % 93.9 H, Lymphocytes % 2.6 L, Monocytes % 3.5, Eosinophils % 0, Basophils % 0 L, Absolute Granulocytes 15.2 H, Absolute Lymphocytes 0.4 L, Absolute Monocytes 0.6, Absolute Eosinophils 0, Absolute Basophils 0, PUBS MCHC 33.7 Assessment/Plan Assessment/Plan [id number] with a hx tobacco use, COPD, pulmonary nodules, recurrent bilateral pleural effusions s/p thoracentesis on multiple occasions (twice in 2006; once in 2009), 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 As she had been asymptomatic from a cardiac standpoint, she was cleared for the orthopedic surgery and underwent the left hip cemented hemiarthroplasty on 07/28. Her electrocardiogram was reviewed and is no significant electrocardiographic changes were observed. Follow-up H/H closely and maintain her hemoglobin at or above 8.0 g/dl given her risk equivalent and multiple risk factors for coronary artery disease. Continue telemetry? Yes
--- NOTE | 2016-07-30 14:34 | Discharge Summary ---
See Addendum Visit Information Visit Dates Admission Date: 07/27/16 Discharge Date: 08/03/2016 Hospital Course Course Attending Physician: CECY SCHUSTER M.D Primary Care Physician: IRENE PLATA DO Consulting Request: Consulting Specialty: Orthopedics Consulting Physician: Dr. Parisi Reason for Consult: lt. femoral neck fracture Hospital Course: This is 86 year female with past medical history of diastolic heart failure, hypertension, hypothyroidism, TIA 6 years ago, breast lumpectomies, bowel perforation status post ileostomy with subsequent reversal, cataract was brought into the emergency department status post fall with chief complaint of left lower extremity pain. Xray showed displaced fracture of the femoral neck. Orthopedics has recommended hemiarthroplasty. 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 Patient did not show any events on telemetry monitoring over the period of her stay at telemetry unit and safely transferred back to general medical floor. Patient will need to follow-up with orthopedic surgeon Dr. Parisi 2 weeks after the procedure around August 11. Hypothyroidism HEENT has history of hypothyroidism. During the course of this admission the patient was continued on her home dose of Synthroid 88 g daily. We will be discharging the patient home to continue with levothyroxine at the same dose. Hypertension At home the patient was on labetalol 300 mg twice a day and amlodipine 5 mg daily both of which were continued during the course of this admission. Some point the patient blood pressure was in the higher side and was started on losartan 100 mg daily. Trend in the vital signs and showed some episodes of blood pressure was more on the lower side. Losartan was discontinued before discharge and patient will go home on her regular blood pressure medications labetalol and amlodipine. Acute postoperative delirium Postoperatively patient was very confused and delirious. We stopped all her narcotics and was given Tylenol and when necessary and doses of NSAIDs. At some point the patient needed one-to-one sitter. She improved and was reorientable. Continue to avoid delirium inducing medications and apply frequent reorientation to reduce risk of developing delirium. Reduced oral intake Patient has been taking poorly before the procedure and even so after the procedure. She was reviewed by a journey lineman during the course of the stay who advised to liberalize her meals and to provide strawberry ensure to help ensure that the patient receive adequate nutrients. Please continue to encourage the patient to take more orally through accommodating her demands. Complications: None Allergies: Coded Allergies: Iodinated Contrast Media - Oral and (IVP DYE 07/27/16) Penicillins (UNKNOWN 07/27/16) Sulfa (Sulfonamide Antibiotics) (UNKNOWN 07/27/16) Tetanus Vaccines and Toxoid (UNKNOWN 07/27/16) codeine (UNKNOWN 07/27/16) latex (ITCHING FROM LATEX GLOVES 07/27/16) Uncoded Allergies: RADIOACTIVE ISOTOPES (UNKNOWN 01/12/12) Significant Procedures: Operative/Inv Procedure Report Surgery Date: 07/28/16 Name of Procedure: Left hip cemented hemiarthroplasty Pre-Operative Diagnosis: Left femoral neck fracture Post-Operative Diagnosis: Left femoral neck fracture Estimated Blood Loss: 200mL Surgeon/Manager Athletics: Wild DAVIS, Dc Richter MD Anesthesia: general endotracheal tube Implants: Styker Accolade Cemented Hemiarthroplasty Size 4C stem Size 45 head Urine Output: 250mL Drains: None Specimens: Femoral head; sent to pathology per hospital protocol Complications: None Condition: Stable Operative/Procedure Note Note: Indication for Procedure: Francse Cantu is an 86 year old female with a history hypertension, hypothyroid, TIAs, and CHF who presented to [facility] following a mechanical fall. She was found to have a left displaced femoral neck fracture. She was admitted to the medical service and evaluated by the medical team and cardiology. We discussed the risks, benefits, and alternative for her fracture, and she was amenable to proceeding with left hip hemiarthroplasty. She was taken to the OR following medical and cardiac optimization. Operative Report: Frances Cantu arrived at the [place] OR on 07/28/2016. She was met in the pre- operative area, where her operative extremity was marked and her medical history reviewed. She was taken into the operating room, where a time out was performed to verify the patient, the operative extremity, and the planned procedure. She was induced under general anesthesia and then moved to the OR table. She was positioned lateral decubitus with the left side up; an SCD was applied to the right lower leg for mechanical VTE prophylaxis. No chemoprophylaxis was administered. Prophylactic clindmycin was given. The left lower extremity was prepped and draped in the usual sterile fashion. A lateral incision was made over the posterior third of the greater trochanter. This was taken down to the tensor fascia tuyet, which was carefully split longitudially. Proximally, the muscle of the gluteus halle was split bluntly. A charnley retractor was placed, and the bursa overlying the trochanter was resected. The sciatic nerve was identified and carefully protected throughout the case. The piriformis tendon was identified and, with the leg externally rotated, it was detached from the trochanter. The tendon was tagged with #5 fiberwire. The superior and inferior gemellus and obturator internus were also detached and tagged. The capsule was split and the fracture identified. A ronguer was used to remove bone fragments, and an oscillating saw used to cut the femoral neck one finger breadth above the lesser trochanter. The femoral head was then removed with a corkscrew and measured at 45mm. A trial was used to confirm the femoral head sizing. The acetabulum was palpated and noted to be in good condition without significant erosion or fracture. The labrum remained intact. The femoral neck was elevated with a retractor. A box strapper was used to remove lateral bone next to the trochanter. A canal finder opened the canal, followed by a series of broaches up to Size 4. This was carefully impacted down to the level of the femoral neck cut. A standard stem was placed with a 45mm head. The hip was reduced. Leg lengths were noted to be the same as compared to the nonoperative leg by palpation. The hip was taken through a range of motion and noted to be stable. The hip was carefully dislocated and the trials removed. A cement restrictor was placed. The hip was thoroughly irrigated with saline with bacitracin. The femoral canal was dried and tobramycin cement was inserted, followed by the femoral implant. The implant was lateralized and held in placed until the cement was hard. The trial head was again placed and the hip reduced to verify leg length and stability. The hip was again dislocated and irrigated. The unipolar head implant was impacted into place and the final hip reduction performed. Two 2.0mm drill holes were placed in the greater trochanter and the piriformis and short external rotator tendon tagging sutures were passed and tied with the hip in abduction and external rotation. The incision was again irrigated. The wound was then closed in layers using #1 vicryl for the fascia, followed by 0 vicryl and 2-0 vicryl. The skin was closed with maría elena. The incision was dressed with xeroform, gauze, and ABD pads, and secured with foam tape. An abduction pillow was placed between her legs. The patient was placed supine, extubated, and taken to the recover room in stable condition. Pertinent Lab Results: FRANCES CANTU Age: 86 : 1930 Gender: F Exam Date: 07/28/2016 14:18 Exam Location: [address] [place] [address] Ht (in): 62 Wt (lb): 126 BSA: 1.59 BP: 146 / 78 Ordering Physician: ANTONELLA RICHARDS MD Referring Physician: Yonathan Nichole MD Technologist: Soraida Beckwith [facility] Room Number: 209-02 Indications: HEART FAILURE Rhythm: Sinus Technical Quality: Fair FINDINGS Left Ventricle Normal size left ventricle. Moderate concentric left ventricular hypertrophy. No obvious regional wall motion abnormalities. Normal left ventricular ejection fraction visually estimated at >65%. Abnormal relaxation filling pattern of the left ventricle for age (stage 1 diastolic dysfunction). Right Ventricle Normal right ventricular size and function. Right Atrium Normal right atrial size. Left Atrium Normal left atrial size. Mitral Valve Mitral valve thickened. Trace mitral regurgitation. Aortic Valve Trileaflet aortic valve. Mild aortic sclerosis. No aortic valve stenosis or regurgitation. Tricuspid Valve Thickened tricuspid valve leaflets. Mild tricuspid regurgitation. Mild pulmonary hypertension. Right ventricular systolic pressure estimated to be elevated at 42mmHg. Pulmonic Valve Pulmonic valve not well visualized, grossly normal. Trace pulmonic regurgitation. Pericardium Small pericardial effusion. No echocardiographic findings to suggest a hemodynamically significant pericardial effusion. Great Vessels Normal size aortic root. Upper normal size inferior vena cava. CONCLUSIONS Normal size left ventricle. Moderate concentric left ventricular hypertrophy. No obvious regional wall motion abnormalities. Normal left ventricular ejection fraction visually estimated at > 65%. Abnormal relaxation filling pattern of the left ventricle for age (stage 1 diastolic dysfunction). Normal right ventricular size and function. Normal atrial size. Trace mitral regurgitation. Mild tricuspid regurgitation. Mild pulmonary hypertension. Trace pulmonic regurgitation. Small pericardial effusion. No echocardiographic findings to suggest a hemodynamically significant pericardial effusion. Upper normal size inferior vena cava. Yonathan Nichole M.D. (Electronically Signed) Final Date: 28 Jul 2016 17:03 MEASUREMENTS (Male / Female) Normal Values 2D ECHO LV Diastolic Diameter PLAX 3.8 cm 4.2 - 5.9 / 3.9 - 5.3 cm LV Systolic Diameter PLAX 2.3 cm 2.1 - 4.0 cm LV Fractional Shortening PLAX 39.5 % 25 - 46 % LV Ejection Fraction 2D Teich 70.8 % IVS Diastolic Thickness 1.4 cm LVPW Diastolic Thickness 1.4 cm LV Relative Wall Thickness 0.7 RV Internal Dim ED PLAX 2.8 cm 1.9 - 3.8 cm LVOT Diameter 1.9 cm Aortic Root Diameter 2.5 cm LA Systolic Diameter LX 4.1 cm 3.0 - 4.0 / 2.7 - 3.8 cm LA Volume 29.0 cm 18 - 58 / 22 - 52 cm Ascending Aorta Diameter 3.1 cm DOPPLER AV Peak Velocity 142.0 cm/s AV Peak Gradient 8.1 mmHg AV Mean Velocity 90.0 cm/s AV Mean Gradient 4.0 mmHg AV Velocity Time Integral 40.8 cm LVOT Peak Velocity 106.0 cm/s LVOT Peak Gradient 4.5 mmHg LVOT Mean Velocity 79.4 cm/s LVOT Mean Gradient 3.0 mmHg LVOT Velocity Time Integral 27.8 cm LVOT Stroke Volume 78.8 cm AV Area Cont Eq vti 1.9 cm AV Area Cont Eq pk 2.1 cm MV Peak Velocity 108.0 cm/s MV Peak Gradient 4.7 mmHg MV Mean Velocity 63.3 cm/s MV Mean Gradient 2.0 mmHg Mitral E Point Velocity 59.0 cm/s Mitral A Point Velocity 91.2 cm/s Mitral E to A Ratio 0.6 MV PHT Velocity 79.9 cm/s MV Deceleration [place] 223.0 cm/s MV Pressure Half Time 107.5 ms MV Area PHT 2.0 cm MV Deceleration Time 283.0 ms TR Peak Velocity 305.0 cm/s TR Peak Gradient 37.2 mmHg Right Atrial Pressure 5.0 mmHg Pulmonary Artery Systolic Pressu 42.2 mmHg Right Ventricular Systolic Press 42.2 mmHg PV Peak Velocity 76.0 cm/s PV Peak Gradient 2.3 mmHg PV Mean Velocity 56.4 cm/s PV Mean Gradient 1.0 mmHg PV Velocity Time Integral 21.0 cm LV E' Lateral Velocity 7.5 cm/s Mitral E to LV E' Lateral Ratio 7.9 LV E' Septal Velocity 4.1 cm/s Mitral E to LV E' Septal Ratio 14.3 Disposition Summary Disposition Principal Diagnosis: Left femoral neck fracture Additional Diagnosis: Post op Delirium Hypertension Discharge Disposition: SNF Discharge Instructions General Discharge Information Code Status: Full Code Patient's Diet: Heart [employer] diet Patient's Activity: As tolerated Follow-Up Instructions/Appts: Please call and make a follow-up with your primary care physician within one week after discharge. Please call and make a follow-up with the orthopedic surgeon Dr. Parisi needs maría elena removal 14 days after procedure. Medications at Discharge Discharge Medications: Continue taking these medications: Labetalol HCl (Labetalol HCl) 300 MG TABLET 1 Tablet ORAL TWICE DAILY Qty = 60 Comments: LAST GIVEN 08/03/16 @ 1230 Furosemide (Furosemide) 20 MG TABLET 1 Tablet ORAL DAILY Qty = 30 Comments: NOT GIVEN Atorvastatin Calcium (Atorvastatin Calcium) 10 MG TABLET 1 Tablet ORAL 5 PM Qty = 90 Comments: LAST GIVEN 08/02/16 @ 1700 Amlodipine Besylate (Amlodipine Besylate) 5 MG TABLET 1 Tablet ORAL DAILY Qty = 3 Comments: LAST GIVEN 08/03/16 @ 1000 Levothyroxine Sodium (Levothyroxine Sodium) 88 MCG TABLET 1 Tablet ORAL Every Morning Qty = 30 Aspirin (Ecotrin*) 81 MG TABLET.DR 1 Tablet ORAL DAILY Comments: NOT GIVEN Start taking the following new medications: Acetaminophen (Acetaminophen) 500 MG TABLET 1,000 Milligram ORAL EVERY 6 HOURS NEEDED as needed for PAIN Qty = 28 No Refills Comments: LAST GIVEN 08/03/16 @ 1000 Enoxaparin Sodium (Lovenox) 40 MG/0.4 ML SYRINGE 40 Milligram Inject into fatty tissue DAILY Qty = 30 No Refills Instructions: Continue for 4 to 6 weeks or when patient fully ambulatory Recommended by Orthopedic Surgeon. Copies To: KM PARISI MD; IRENE PLATA DO
--- NOTE | 2016-07-30 15:36 | PN- Orthopedic ---
Surgical Brief Attending Note Brief Attending Note: Patient seen and examined. Resting in bed, opens eyes to voice, in not distress. Asks to be left alone. Labs: Hb/Hct drop from 12.4/36.8 to 8.8/26.3. Plt 117. Na drop 135 to 127. Cr up 1.4 to 1.8 Exam: Dressing to left hip clean and dry; changed earlier today Tender to palpation over left hip and anterior thigh No tenderness over left knee or calf SCD to LLE Reports intact sensation to left foot; does not comply with motor exam and asks repeatedly to be left alone. A/P: 86yo F POD#2 left hip cemented hemiarthroplasty. Acute blood loss anemia; has been stable from cardiac/telemetry standpoint. Expected post-operative pain. 1. WBAT LLE 2. Pain control; limit narcotics. 3. SCDs in bed, lovenox 40mg qd for VTE chemoprophylaxis 4. Out of bed with PT/OT 5. Continue to monitor labs, vital signs. Per cardioloy recs, keep Hb >8.0 6. Appreciate medical and cardiology care of this patient.
[2016-07-30 16:32] VITALS: BP 120/66
[2016-07-30 23:37] VITALS: BP 134/68
--- NOTE | 2016-07-31 07:05 | PN- Housestaff ---
Assessment/Plan Assessment: This is 86 year female with PMH of diastolic heart failure, hypertension, hypothyroidism, TIA 6 years ago, breast lumpectomies, 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 #Left femoral neck fracture S/P hemiarthroplasty POD#2 Patient presented with left hip pain post mechanical fall. She was found to have left femoral neck fracture. She went for hemiarthroplasty POD#2. Given that she has a history of HFpEF, HTN, and recurrent bilateral pleural effusions, cardiology recommended telemetry monitoring postoperatively for 24 hours. Patient will most likely be transferred back to general medicine floor later today. Given the confusion morphine was DC'd yesterday. * Continue acetaminophen oral to control pain * Out of bed with physical therapy patient is weightbearing as tolerated as per ortho * First surgical dressing change today * Posterior hip precautions, abduction pillow #Acute blood loss anemia Hemoglobin was 12 yesterday and dropped to 8.8 this a.m. this is a normal amount blood loss post hemiarthroplasty. * CBC daily to keep hemoglobin above 8 #BANDAR Patient creatinine on admission was 1.2 it's improved with hydration, however it's increased to 1.4 yesterday and 1.8 this a.m. this most likely secondary to dehydration given that the patient is confused, has poor oral intake, and some anticipated blood loss because of hemiarthroplasty. * We'll continue IV normal saline at rate of 100 mL per hour * We will repeat renal function tomorrow #Confusion Patient was found to be mildly confused post surgery, this is most likely because of dehydration, opioids, anesthesia, and age. * We will avoid opioids and other medications that can alter mental status. * We will hydrate and ensure a good sleep during night. #Leukocytosis Yesterday WBCs increased to 16.1 that was most likely reactive post surgery. This morning WBCs is back to normal. * Repeat CBC tomorrow #Hypertension * Losartan 100 mg * Labetalol 300 mg twice a day * Lasix 20 mg * Amlodipine 5 mg daily. #Hypothyroidism * Synthroid 88 g daily #History of TIA * Statin * Aspirin as an hold since yesterday because of surgery, we will start after confirming with orthopedic Heart healthy diet DVT prophylaxis SC Lovenox Full code Consulting Request: Consulting Specialty: Orthopedics Consulting Physician: Dr. Rome Reason for Consult: lt. femoral neck fracture
[2016-07-31 07:28] VITALS: BP 174/66
--- NOTE | 2016-07-31 07:29 | PN- Housestaff ---
MAURICE DAVIS,ANTONELLA 07/31/16 0728: Subjective Follow-up For: 1. Mechanical fall with displaced femoral neck fracture s/p hemiarthroplasty. 2. Hypothyroidism 3. COPD. 4. CKD stage III Complaints: no complaints Tele-Events Since Last Visit: off telemetry now, transferred yesterday Subjective: I followed up the patient today. She is alert, not confused, not in distress, lying comfortably in her bed. Does not have any complaints. Her BP this AM was 174/66 and on repeat check was 158/78. IV fluids running at 75ml/hr. Still poor appetite. Mauro cath discontinued early this AM. Still requiring additional O2 via NC. Denies fever, chills, SOB, palpitation, dizziness as signs of infection/anemia. Review of Systems Constitutional: Reports: see HPI. Objective Last 24 Hrs of Vital Signs/I&O Vital Signs Date Time Temp Pulse Resp B/P B/P Pulse O2 O2 Flow FiO2 Mean Ox Delivery Rate 07/31 1057 Room Air 07/31 1030 Nasal 3.0L Cannula 07/31 0853 76 152/78 07/31 0805 95 Nasal 3.0L Cannula 07/31 0803 98.0 80 20 158/78 96 Nasal 3.0L Cannula 07/31 0728 98.4 72 20 174/66 97 Room Air 07/31 0000 95 Nasal 2.5L Cannula 07/30 2337 97.5 65 20 134/68 95 07/30 1645 77 120/66 07/30 1632 99.1 77 20 120/66 97 Nasal 2.5L Cannula 07/30 1600 Nasal 2.5L Cannula Intake & Output 07/31 1600 07/31 0800 07/31 0000 Intake Total 600 60 Output Total 1000 Balance -400 60 Intake, IV 600 Intake, Oral 60 Output, Urine 1000 Physical Exam General Appearance: Alert, Oriented X3, Cooperative, No Acute Distress Other Physical Findings: Skin No Rashes Skin Temp/Moisture Exam: Warm/Dry HEENT Atraumatic, PERRLA, EOMI, Mucous Membr. moist/pink Neck Supple, No JVD Lymphatic Cervical nl Cardiovascular Regular Rate, Normal S1, Normal S2, No Murmur appreciated by me. Lungs Clear to Auscultation, Normal Air Movement Abdomen Normal Bowel Sounds, Soft, No Tenderness Neurological Normal Speech, Strength at 5/5 X4 Ext, Normal Tone, Sensation Intact, Cranial Nerves 3-12 NL Extremities No Edema, Normal Pulses, dressing with rose of minimal soakage present over left lower gluteal region, abduction pillow in situ Vascular Normal Pulses, Pulses Symmetrical Current Medications: Current Medications Sig/Moises Start time Last Medication Dose Route Stop Time Status Admin Acetaminophen 1,000 MG TID 07/29 1000 AC 07/31 PO 0330 Amlodipine Besylate 5 MG DAILY 07/29 1000 AC 07/31 PO 0853 Atorvastatin Calcium 10 MG 1700 07/29 1700 AC 07/30 PO 1645 Benzocaine/Menthol 1 ELAINA TID 07/29 1600 AC 07/29 PO 2129 Bisacodyl 10 MG DAILY PRN 07/31 0730 DC 07/31 [place] 0751 Docusate Sodium 100 MG DAILY NEEDED PRN 07/31 0830 AC PO Enoxaparin Sodium 40 MG DAILY 07/29 1000 AC 07/31 SC 0847 Glycerin 2 SPRAY Q2P PRN 07/29 0945 AC 07/29 PO 1829 Labetalol HCl 300 MG BID 07/28 2200 AC 07/31 PO 0853 Levothyroxine Sodium 0.088 MG DAILY AC 07/29 0700 AC 07/29 PO 0709 Losartan Potassium 100 MG DAILY 07/29 1000 AC 07/31 PO 0853 Polyethylene Glycol 17 GM DAILY 07/31 1000 AC 07/31 PO 0847 Senna/Docusate Sodium 1 TAB BID 07/31 1000 AC 07/31 PO 0853 Sodium Chloride 1,000 ML Q13H 07/29 0945 AC 07/31 IV 1229 Tramadol HCl 25 MG Q6P PRN 07/31 0845 AC PO Tramadol HCl 50 MG Q6P PRN 07/28 2045 DC 07/31 PO 0330 Last 24 Hrs of Lab/[place] Results Last 24 Hrs of Labs/Mics: Laboratory Tests 07/31/16 0645: Anion Gap 8, Estimated GFR 47 L, BUN/Creatinine Ratio 32.7 H, CBC w Diff NO MAN DIFF REQ, RBC 3.24 L, MCV 78.9 L, MCH 26.1 L, RDW 14.0, MPV 8.7, Gran % 88.7 H, Lymphocytes % 5.9 L, Monocytes % 5.3, Eosinophils % 0.1, Basophils % 0 L, Absolute Granulocytes 7.4 H, Absolute Lymphocytes 0.5 L, Absolute Monocytes 0.4, Absolute Eosinophils 0, Absolute Basophils 0, PUBS MCHC 33.1 Assessment/Plan Assessment: This is 86 year female with PMH of diastolic heart failure, hypertension, hypothyroidism, TIA 6 years ago, breast lumpectomies, 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 #Left femoral neck fracture S/P hemiarthroplasty POD#3 Patient presented with left hip pain post mechanical fall. She was found to have left femoral neck fracture. She went for hemiarthroplasty POD#3. Given that she has a history of HFpEF, HTN, and recurrent bilateral pleural effusions, cardiology recommended telemetry monitoring postoperatively for 24 hours. Patient transferred back to general medicine floor yesterday. Given the confusion morphine was DC'd yesterday. * Continue acetaminophen oral to control pain * Out of bed with physical therapy patient is weightbearing as tolerated as per ortho * Daily gauze dressing, and maría elena to remove in day 14 and follow up in 3-4 weeks. * Posterior hip precautions, abduction pillow #Acute blood loss anemia Hemoglobin had dropped from 12 to 8.8 to 8.5 today. Expected post hemiarthroplasty. Will keep watching. * CBC daily to keep hemoglobin above 8 #BANDAR Patient creatinine on admission was 1.2 it's improved with hydration, but had increased to 1.8 yesterday due to dehydration and poor oral intake. This AM it is 1.1. * Nutritional consult placed given her poor oral intake and recent dehydration. * We'll continue IV normal saline at rate of 75 mL per hour for now (LVEF >65% in Echo) * We will repeat renal function tomorrow #Confusion Patient was found to be mildly confused post surgery, this is most likely because of dehydration, opioids, anesthesia, and age. * We will avoid opioids and other medications that can alter mental status. * We will hydrate and ensure a good sleep during night. * This AM, patient is alert and not confused. #Leukocytosis WBCs increased to 16.1 on POD1, which is most likely reactive post surgery. This morning WBCs is back to normal. * Repeat CBC tomorrow #Hypertension * Losartan 100 mg * Labetalol 300 mg twice a day * Lasix 20 mg * Amlodipine 5 mg daily. #Hypothyroidism * Synthroid 88 g daily #History of TIA * Statin * Aspirin as an hold since yesterday because of surgery, we will start after confirming with orthopedic #Discharge disposition: * Patient cannot be discharged with poor oral intake and low sodium requiring IV fluids. Will consider DC after this has improved. She is to go to [facility] for PT upon discharge. #Constipation * Patient did not have a bowel movement in four days. She was given a suppository this AM and a bowel regimen ordered. Heart healthy diet DVT prophylaxis SC Lovenox Full code Problem List: 1. Fall 2. Fractured femoral neck 3. Status post hip hemiarthroplasty 4. HTN (hypertension) 5. Hypothyroid 6. Diastolic heart failure 7. Constipation 8. BANDAR (acute kidney injury) 9. Hyponatremia Pain Ratin Pain Location: - Pain Goal: Pain 4 or less Pain Plan: prn, avaoiding opiates Tomorrow's Labs & Rationales: CBC, BEP to replete lytes, and for anemia Consulting Request: Consulting Specialty: Orthopedics Consulting Physician: Dr. Rome Reason for Consult: lt. femoral neck fracture LANDEN DAVIS,CECY 07/31/16 1355: Attending MD Review Statement Attending Statement Attending MD Statement: examined this patient, discuss w/resident/PA/F[employer]ILY [employer]SUMER EDUCATION TEACHER, agreed w/resident/PA/FAMILY [employer] CONSUMER EDUCATION TEACHER, reviewed EMR data (avail), discussed with nursing, discussed with case mgmt, amended to note Attending Assessment/Plan: Patient seen and examined. Resting comfortably limits in any acute distress. She is much more alert today. She is oriented and, indicating appropriately. She is not in any of his distress. She is participating in physical therapy. With hydration her creatinine level is improving. She did have a drop in her hemoglobin levels but appears to be stabilizing for now. Pain is controlled with Tylenol. If she remains hemodynamically stable overnight with no further drop of her hemoglobin level she may be discharged to the senior living facility for short-term rehabilitation.
[2016-07-31 08:02] LABS: ABSOLUTE BASOPHIL COUNT 0 /CUMM (0.0-0.2); ABSOLUTE EOSINOPHIL COUNT 0 /CUMM (0.0-0.7); ABSOLUTE GRANULOCYTE CT 7.4 /CUMM (1.4-6.5); ABSOLUTE LYMPH COUNT 0.5 /CUMM (1.2-3.4); ABSOLUTE MONOCYTE COUNT 0.4 /CUMM (0.10-0.60); BASOPHIL % 0 % (0.0-2.0); EOSINOPHIL % 0.1 % (0-5); GRANULOCYTE % 88.7 % (42.2-75.2); HEMATOCRIT 25.6 % (37-47); MEAN CORPUSCULAR HGB 26.1 PG (27.0-31.0); MEAN CORPUSCULAR HGB CONC 33.1 G/DL (33.0-37.0); MEAN CORPUSCULAR VOLUME 78.9 FL (81.0-99.0); MEAN PLATELET VOLUME 8.7 FL (7.4-10.4); PLATELET COUNT 122 /CUMM (130-400); RED BLOOD CELL CT 3.24 /CUMM (4.20-5.40); WHITE BLOOD CELL COUNT 8.3 /CUMM (4.8-10.8)
[2016-07-31 08:03] VITALS: BP 158/78
[2016-07-31 14:36] VITALS: BP 142/57
[2016-07-31 21:57] VITALS: BP 156/60
[2016-08-01 07:37] VITALS: BP 114/74
[2016-08-01 07:47] LABS: ABSOLUTE BASOPHIL COUNT 0 /CUMM (0.0-0.2); ABSOLUTE EOSINOPHIL COUNT 0 /CUMM (0.0-0.7); ABSOLUTE GRANULOCYTE CT 6.8 /CUMM (1.4-6.5); ABSOLUTE LYMPH COUNT 0.5 /CUMM (1.2-3.4); ABSOLUTE MONOCYTE COUNT 0.3 /CUMM (0.10-0.60); BASOPHIL % 0 % (0.0-2.0); EOSINOPHIL % 0.3 % (0-5); HEMATOCRIT 26.3 % (37-47); MEAN CORPUSCULAR HGB 26.8 PG (27.0-31.0); MEAN PLATELET VOLUME 8.3 FL (7.4-10.4); PLATELET COUNT 151 /CUMM (130-400); RBC DISTRIBUTION WIDTH 14.4 % (11.5-14.5); RED BLOOD CELL CT 3.33 /CUMM (4.20-5.40); WHITE BLOOD CELL COUNT 7.7 /CUMM (4.8-10.8)
[2016-08-01 08:43] LABS: GRANULOCYTE % 89.2 % (42.2-75.2)
--- NOTE | 2016-08-01 10:40 | PN- Housestaff ---
MAURICE DAVIS,ANTONELLA 08/01/16 1040: Subjective Follow-up For: 1. Mechanical fall with displaced femoral neck fracture s/p hemiarthroplasty. 2. Hypothyroidism 3. COPD. 4. CKD stage III Complaints: mild abd discomfort Subjective: I followed up and examined the patient today. She is resting comfortably in her bed, does not seem to be in distress. She does complain that she has mild abdominal discomfort which also appears mildly distended. She still has decreased appetite. She mentioned that she was not being able to pass stools easily and requested something to help her. Vitals have been stable, no other issues. No nausea, vomiting or confusion today. Of note, as soon as I ordered a suppository to help her have a bowel movement, she had the large amount of bowel movement. She did not require a suppository today. Review of Systems Constitutional: Reports: see HPI. Objective Last 24 Hrs of Vital Signs/I&O Vital Signs Date Time Temp Pulse Resp B/P B/P Pulse O2 O2 Flow FiO2 Mean Ox Delivery Rate 08/01 1433 99.0 68 18 178/64 97 08/01 1229 70 156/58 08/01 1035 123 162/74 08/01 1035 123 162/74 08/01 1035 123 162/74 08/01 0800 95 Nasal 3.0L Cannula 08/01 0737 98.7 58 18 114/74 96 Nasal 3.0L Cannula 08/01 0000 Nasal 3.0L Cannula 07/31 2337 97 Nasal 3.0L Cannula 07/31 2157 97.8 74 20 156/60 07/31 2156 78 156/60 Intake & Output 08/01 1600 08/01 0800 08/01 0000 Intake Total 720 840 250 Output Total Balance 720 840 250 Intake, IV 600 Intake, Oral 720 240 250 Number 0 Bowel Movements Physical Exam General Appearance: Alert, Oriented X3, Cooperative, No Acute Distress Other Physical Findings: Skin No Rashes Skin Temp/Moisture Exam: Warm/Dry HEENT Atraumatic, PERRLA, EOMI, Mucous Membr. moist/pink Neck Supple, No JVD Lymphatic Cervical nl Cardiovascular Regular Rate, Normal S1, Normal S2, No Murmur appreciated by me. Lungs Clear to Auscultation, Normal Air Movement Abdomen Normal Bowel Sounds, Soft, No Tenderness Neurological Normal Speech, Strength at 5/5 X4 Ext, Normal Tone, Sensation Intact, Cranial Nerves 3-12 NL Extremities No Edema, Normal Pulses, dressing with rose of minimal soakage present over left lower gluteal region Vascular Normal Pulses, Pulses Symmetrical Current Medications: Current Medications Sig/Moises Start time Last Medication Dose Route Stop Time Status Admin Acetaminophen 1,000 MG TID 07/29 1000 AC 08/01 PO 1636 Amlodipine Besylate 5 MG DAILY 07/29 1000 AC 08/01 PO 1035 Atorvastatin Calcium 10 MG 1700 07/29 1700 AC 08/01 PO 1635 Benzocaine/Menthol 1 ELAINA Q1P PRN 07/31 1545 AC PO Benzocaine/Menthol 1 ELAINA TID 07/29 1600 AC 07/31 PO 1700 Bisacodyl 10 MG ONCE ONE 08/01 0845 DC [place] 08/01 0846 Docusate Sodium 100 MG DAILY NEEDED PRN 07/31 0830 AC 08/01 PO 0532 Enoxaparin Sodium 40 MG DAILY 07/29 1000 AC 08/01 SC 1037 Glycerin 2 SPRAY Q2P PRN 07/29 0945 AC 07/29 PO 1829 Labetalol HCl 300 MG BID 07/28 2200 AC 08/01 PO 1035 Levothyroxine Sodium 0.088 MG DAILY AC 07/29 0700 AC 08/01 PO 0532 Losartan Potassium 100 MG DAILY 07/29 1000 DC 08/01 PO 1035 Ondansetron HCl 4 MG Q6P PRN 08/01 1145 AC 08/01 IV 1202 Patient Medication 1 ED .STK-MED ONE 08/01 1400 DC Teaching ED 08/01 1401 Polyethylene Glycol 17 GM DAILY 07/31 1000 AC 07/31 PO 0847 Senna/Docusate Sodium 1 TAB BID 07/31 1000 AC 07/31 PO 2155 Sodium Chloride 1,000 ML Q13H 07/29 0945 AC 08/01 IV 1402 Tramadol HCl 25 MG Q6P PRN 07/31 0845 AC PO Last 24 Hrs of Lab/Eugene Results Last 24 Hrs of Labs/Mics: Laboratory Tests 08/01/16 0610: Anion Gap 7, Estimated GFR > 60, BUN/Creatinine Ratio 33.8 H, CBC w Diff NO MAN DIFF REQ, RBC 3.33 L, MCV 79.0 L, MCH 26.8 L, RDW 14.4, MPV 8.3, Gran % 89.2 H, Lymphocytes % 6.3 L, Monocytes % 4.2, Eosinophils % 0.3, Basophils % 0 L, Absolute Granulocytes 6.8 H, Absolute Lymphocytes 0.5 L, Absolute Monocytes 0.3, Absolute Eosinophils 0, Absolute Basophils 0, PUBS MCHC 34.0 Assessment/Plan Assessment: This is 86 year female with PMH of diastolic heart failure, hypertension, hypothyroidism, TIA 6 years ago, breast lumpectomies, 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 #Left femoral neck fracture S/P hemiarthroplasty POD#4 Patient presented with left hip pain post mechanical fall. She was found to have left femoral neck fracture. She went for hemiarthroplasty POD#4. Given that she has a history of HFpEF, HTN, and recurrent bilateral pleural effusions, cardiology recommended telemetry monitoring postoperatively for 24 hours. Patient transferred back to general medicine floor yesterday. Given the confusion morphine was DC'd in telemetry floor. * Continue acetaminophen oral to control pain * Out of bed with physical therapy patient is weightbearing as tolerated as per ortho * Daily gauze dressing, and maría elena to remove in day 14 and follow up in 3-4 weeks. * Posterior hip precautions, abduction position for now # Pain Abdomen Patient's abdominal pain was initially thought to be because of constipation. She however does not have constipation anymore as she has been having bowel movement. Her examination was benign, except for mild tenderness over her right side of the abdomen. She has been having regular bowel movements now. Will order an abdominal x-ray for any possible cause of pain abdomen/discomfort. Will follow AM labs, like CBC. Will manage the pain while searching the cause for it. # Constipation Patient was having constipation for 4 days when she was given suppository and had one bowel movement yesterday. She now has a bowel regimen ordered for her. She had another bowel movement yesterday and a large bowel movement this morning as well. Will try to avoid benzos, and delirium triggers. #Acute blood loss anemia Hemoglobin had dropped from initial 12 to 8.9 today. Expected post hemiarthroplasty. Will keep watching. * CBC daily to keep hemoglobin above 8 #BANDAR Patient creatinine on admission was 1.2 it's improved with hydration, but had increased to 1.8 earlier due to dehydration and poor oral intake. This AM it is 0.8. * Nutritional consult services following and encouraging to eat/drink. * We'll continue IV normal saline at rate of 75 mL per hour for now (LVEF >65% in Echo) * We will repeat renal function tomorrow #Confusion Patient was found to be mildly confused post surgery, this is most likely because of dehydration, opioids, anesthesia, and age. * We will avoid opioids and other medications that can alter mental status. * We will hydrate and ensure a good sleep during night. * This AM, patient is alert and not confused. #Leukocytosis WBCs increased to 16.1 on POD1, which is most likely reactive post surgery. This morning WBCs is back to normal. * Repeat CBC tomorrow #Hypertension * Losartan 100 mg. She has been taking this substitution since admission. * Labetalol 300 mg twice a day * Lasix 20 mg on hold * Amlodipine 5 mg daily. #Hypothyroidism * Synthroid 88 g daily #History of TIA * Statin * Aspirin as an hold since yesterday because of surgery, we will start after confirming with orthopedic #Discharge disposition: * Patient cannot be discharged with poor oral intake and low sodium requiring IV fluids. Will consider DC after this has improved. She is to go to [facility] for PT upon discharge. #Constipation * Patient did not have a bowel movement in four days. She was given a suppository yesterrday AM and a bowel regimen ordered. Heart healthy diet DVT prophylaxis SC Lovenox Full code Problem List: 1. Fall 2. Fractured femoral neck 3. Status post hip hemiarthroplasty 4. Constipation 5. HTN (hypertension) 6. Hypothyroid Pain Ratin Pain Location: abd, when present, mild discomfort Pain Goal: Pain 4 or less Pain Plan: prn Tomorrow's Labs & Rationales: BEP, CBC to f/u on h/h and lytes Consulting Request: Consulting Specialty: Orthopedics Consulting Physician: Dr. Rome Reason for Consult: lt. femoral neck fracture LANDEN DAVIS,CECY 08/01/16 1216: Attending MD Review Statement Attending Statement Attending MD Statement: examined this patient, discuss w/resident/PA/INVERTER [employer] CLIPPER, agreed w/resident/PA/IN[employer]TER [employer] CLIPPER, reviewed EMR data (avail), discussed with nursing, discussed with case mgmt, amended to note Attending Assessment/Plan: Patient seen and examined. Resting comfortably not in any acute distress. Pain control and Tylenol. But spitting the physical therapy. She remains afebrile and hemodynamically stable. Patient has a sitter in place for safety to prevent falls however she appears to be doing well and does not attempted to get out of bed unassisted recently. Her oral intake is slowly improving. Recommendations: -Discontinue IV fluids. -Wean off oxygen supplementation as tolerated. -Continue physical therapy as tolerated. -Discontinue sitter/home monitor. -Patient may be discharged to senior care facility for short-term rehabilitation tomorrow if she remains clinically stable
[2016-08-01 12:29] VITALS: BP 156/58
[2016-08-01] MEDS ORDERED: ACETAMINOPHEN500 M4 PO (14:28)
[2016-08-01 14:33] VITALS: BP 178/64
--- NOTE | 2016-08-01 17:01 | PN- Orthopedic ---
Surgical Brief Attending Note Brief Attending Note: Patient seen and examined today. Complaining of a headache and abdominal pain. Per RN, loose bowel movement earlier today but was constipated prior. says she has been nauseous and is not eating well. She has been out of bed to chair but has not ambulated with PT. Exam: Dressing to left hip with serosanguinous drainage; changed today Incision clean and dry; surrounding ecchymosis Tender to palpation over left hip and thigh No tenderness over knee or lower leg SCDs in place. Intact EHL/FHL and ankle DF/PF left foot Sensation intact to light touch left foot. A/P: 86yo F POD#4 left cemented hip hemiarthroplasty. Complaining of abdominal pain and headache. Has not mobilized with PT yet. 1. WBAT LLE; posterior hip precautions. 2. SCDs, lovenox 40mg for VTE prophylaxis 3. Pain control with tylenol; limit narcotics. 4. Out of bed with PT, bed to chair and ambulation as tolerated Appreciate medical managment of patient's comorbidities and current abdominal pain. Plan for follow up in the clinic in 2 weeks. Please call [phone] to schedule an appointment.
--- NOTE | 2016-08-01 18:14 | RADIOLOGY REPORT ---
EXAMINATION: XR ABDOMEN MULTIPLE VIEWS CLINICAL INDICATION: Pain and abdominal distention. COMPARISON: Pelvic x-ray and chest x-ray from 07/27/2016, CT of the abdomen and pelvis from 10/28/2009 TECHNIQUE: Supine and upright views of the abdomen. FINDINGS: There is a nonspecific bowel gas pattern with air seen in the stomach, small and large bowel. No findings specific for obstruction. No free air under the hemidiaphragms. There is blunting of both costophrenic angles compatible with small pleural effusions, similar to 07/27/2016 as well as the CT from 2009. There are several stable clips in the right abdomen. There is multilevel degenerative change of the spine with a dextroconvex thoracolumbar scoliosis. A left-sided total hip replacement is visualized. Scattered phleboliths are present in the pelvis. IMPRESSION: Nonobstructive bowel gas pattern.
--- NOTE | 2016-08-01 19:06 | Patient Discharge Instructions ---
Discharge Instructions General Discharge Information You were seen/treated for: Left neck of femur fracture You had these procedures: Left hip cemented hemiarthroplasty Special Instructions: Please follow-up with orthopedic clinic in 2 weeks. Please call [phone] to schedule an appointment. Patient will continue to be on Lovenox for 4-6 weeks for DVT prophylaxis. Please follow-up with her primary care physician within 10 days of discharge. Please return to emergency if in severe pain, unable to move the hip, high fever , or as needed. Diet Continue normal diet: Yes Recommended Diet: Heart Healthy Activity Full Activity/No Limits: No Activity Self Limited: Yes Acute Coronary Syndrome Inclusion Criteria At DC or during hospital stay patient has or had the following: ACS DIAGNOSIS No Discharge Core Measures Meds if any: Prescribed or Continued at Discharge Meds if any: NOT Prescribed or Continued at Discharge Congestive Heart Failure Inclusion Criteria At DC or during hospital stay patient has or had the following: CHF DIAGNOSIS No Discharge Core Measures Meds if any: Prescribed or Continued at Discharge Meds if any: NOT Prescribed or Continued at Discharge Cerebrovascular accident Inclusion Criteria At DC or during hospital stay patient has or had the following: CVA/TIA Diagnosis No Discharge Core Measures Meds if any: Prescribed or Continued at Discharge Meds if any: NOT Prescribed or Continued at Discharge Venous thromboembolism Inclusion Criteria VTE Diagnosis No VTE Type NONE VTE Confirmed by (Test) NONE Discharge Core Measures - Per Current guidelines, there needs to be overlap - treatment for the first 5 days of Warfarin therapy. - If discharged on Warfarin prior to 5 days of - overlap therapy, the patient will need to be - assessed for post discharge needs including - *Post discharge parental anticoagulation - *Warfarin and/or parental anticoagulation education - *Follow up date to check INR post discharge At least 5 days overlap therapy as Inpatient No Meds if any: Prescribed or Continued at Discharge Note: Overlap Therapy is Warfarin and Anticoagulant Meds if any: NOT Prescribed or Continued at Discharge
[2016-08-01 22:22] VITALS: BP 150/74
[2016-08-02 06:31] VITALS: BP 154/74
[2016-08-02 08:21] LABS: ABSOLUTE BASOPHIL COUNT 0 /CUMM (0.0-0.2); ABSOLUTE EOSINOPHIL COUNT 0 /CUMM (0.0-0.7); ABSOLUTE GRANULOCYTE CT 7.1 /CUMM (1.4-6.5); ABSOLUTE LYMPH COUNT 0.6 /CUMM (1.2-3.4); ABSOLUTE MONOCYTE COUNT 0.4 /CUMM (0.10-0.60); BASOPHIL % 0 % (0.0-2.0); EOSINOPHIL % 0.4 % (0-5); GRANULOCYTE % 87.6 % (42.2-75.2); HEMATOCRIT 25.4 % (37-47); MEAN CORPUSCULAR HGB 26.7 PG (27.0-31.0); MEAN CORPUSCULAR HGB CONC 33.7 G/DL (33.0-37.0); MEAN CORPUSCULAR VOLUME 79.1 FL (81.0-99.0); PLATELET COUNT 186 /CUMM (130-400); RBC DISTRIBUTION WIDTH 14.3 % (11.5-14.5); RED BLOOD CELL CT 3.21 /CUMM (4.20-5.40); WHITE BLOOD CELL COUNT 8.1 /CUMM (4.8-10.8)
--- NOTE | 2016-08-02 08:35 | PN- Housestaff ---
AICHA DAVIS,KIARA 08/02/16 0835: Subjective Follow-up For: Left femoral fracture - s/p hemiarthroplasty Subjective: I saw the patient today morning She is very uncomfortable, reports pain in her epigastric region. Still on fluids, Discontinued it. No symptoms of urinary infection including dysuria, nocturia but requesting for urinalysis and culture. She is not having adequate appetite. provided with a single dose of protonix 40mg oral. Review of Systems Constitutional: Reports: see HPI. Comments: ROS negative except the above. Objective Last 24 Hrs of Vital Signs/I&O Vital Signs Date Time Temp Pulse Resp B/P B/P Pulse O2 O2 Flow FiO2 Mean Ox Delivery Rate 08/02 0631 98.1 80 20 154/74 97 08/02 0000 99 Nasal 2.0L Cannula 08/01 2222 98.5 76 18 150/74 99 Nasal 3.0L Cannula 08/01 2140 76 150/74 08/01 1433 99.0 68 18 178/64 97 08/01 1229 70 156/58 08/01 1035 123 162/74 08/01 1035 123 162/74 08/01 1035 123 162/74 Intake & Output 08/02 1600 08/02 0800 08/02 0000 Intake Total 1350 600 Output Total 500 100 Balance 850 500 Intake, IV 630 600 Intake, Oral 720 Number 2 Bowel Movements Output, Urine 500 100 Physical Exam General Appearance: Alert, Oriented X3, Cooperative, No Acute Distress Skin: No Rashes HEENT: Atraumatic, PERRLA, EOMI Neck: Supple Cardiovascular: Normal S1, Normal S2 Lungs: Normal Air Movement, decreased breath sounds at bases Abdomen: No Tenderness, distended Neurological: Normal Tone, Sensation Intact, Cranial Nerves 3-12 NL Extremities: No Clubbing, No Cyanosis, dressing present Current Medications: Current Medications Sig/Moises Start time Last Medication Dose Route Stop Time Status Admin Acetaminophen 1,000 MG TID 07/29 1000 AC 08/01 PO 2140 Amlodipine Besylate 5 MG DAILY 07/29 1000 AC 08/01 PO 1035 Atorvastatin Calcium 10 MG 1700 07/29 1700 AC 08/01 PO 1635 Benzocaine/Menthol 1 ELAINA Q1P PRN 07/31 1545 AC PO Benzocaine/Menthol 1 ELAINA TID 07/29 1600 AC 07/31 PO 1700 Bisacodyl 10 MG ONCE ONE 08/01 0845 DC SD 08/01 0846 Docusate Sodium 100 MG DAILY NEEDED PRN 07/31 0830 AC 08/01 PO 0532 Enoxaparin Sodium 40 MG DAILY 07/29 1000 AC 08/01 SC 1037 Glycerin 2 SPRAY Q2P PRN 07/29 0945 AC 07/29 PO 1829 Labetalol HCl 300 MG BID 07/28 2200 AC 08/01 PO 2140 Levothyroxine Sodium 0.088 MG DAILY AC 07/29 0700 AC 08/02 PO 0537 Losartan Potassium 100 MG DAILY 07/29 1000 DC 08/01 PO 1035 Ondansetron HCl 4 MG Q6P PRN 08/01 1145 AC 08/01 IV 2325 Patient Medication 1 ED .STK-MED ONE 08/01 1400 DC Teaching ED 08/01 1401 Polyethylene Glycol 17 GM DAILY 07/31 1000 AC 07/31 PO 0847 Senna/Docusate Sodium 1 TAB BID 07/31 1000 AC 07/31 PO 2155 Sodium Chloride 1,000 ML Q13H 07/29 0945 AC 08/02 IV 0257 Tramadol HCl 25 MG Q6P PRN 07/31 0845 AC 08/01 PO 2324 Assessment/Plan Assessment: This is 86 year female with PMH of diastolic heart failure, hypertension, hypothyroidism, TIA 6 years ago, breast lumpectomies, 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 Left femoral neck fracture S/P hemiarthroplasty POD#5 Patient presented with left hip pain post mechanical fall. She was found to have left femoral neck fracture. Given that she has a history of HFpEF, HTN, and recurrent bilateral pleural effusions, cardiology recommended telemetry monitoring postoperatively for 24 hours. Patient transferred back to general medicine floor yesterday. Given the confusion morphine was DC'd in telemetry floor. * Pain control with Tylenol PO. * Out of bed with physical therapy patient is weightbearing as tolerated as per ortho * Daily gauze dressing, and maría elena to remove in day 14 and follow up in 3-4 weeks. * Posterior hip precautions, abduction position for now # Pain Abdomen Patient's abdominal pain was initially thought to be because of constipation. She however does not have constipation anymore as she has been having bowel movement. Her examination was benign, except for mild tenderness over her right side of the abdomen. She has been having regular bowel movements now. Xray of abdomen is normal. Patient hasnt been eating well, reports epigastric sickness. obtaining UA and culture. # Constipation * Resolved #Acute blood loss anemia - s/p hemiarthroplasty Hemoglobin had dropped from initial 12 to 8.9 today. Expected post hemiarthroplasty. Will keep watching. * CBC daily to keep hemoglobin above 8 #BANDAR * Resolved and discontinued fluids today. #Confusion Patient was found to be mildly confused post surgery, this is most likely because of dehydration, opioids, anesthesia, and age. * We will avoid opioids and other medications that can alter mental status. * This AM, patient is alert and not confused. #Leukocytosis WBCs increased to 16.1 on POD1, which is most likely reactive post surgery. This morning WBCs is back to normal. * Resolved #Hypertension - relatively controlled * Losartan 100 mg. She has been taking this substitution since admission. * Continue amlodipine 5mg and Labetalol 300 mg twice a day * Lasix 20 mg on hold #Hypothyroidism * Synthroid 88 g daily #History of TIA * Statin * Aspirin as an hold since yesterday because of surgery, we will start after confirming with orthopedic #Discharge disposition: * Patient cannot be discharged with poor oral intake and low sodium requiring IV fluids. Will consider DC after this has improved. She is to go to [facility] for PT upon discharge. Heart healthy diet DVT prophylaxis SC Lovenox Full code Problem List: 1. Fractured femoral neck 2. Fall Pain Ratin Pain Location: abdominal region Pain Goal: Pain 4 or less Pain Plan: tylenol and tramadol Tomorrow's Labs & Rationales: bep to monitor electrolytes Consulting Request: Consulting Specialty: Orthopedics Consulting Physician: Dr. Rome Reason for Consult: lt. femoral neck fracture PAZ DAVIS,MOHINI 08/02/16 1408: Attending MD Review Statement Attending Statement Attending MD Statement: examined this patient, discuss w/resident/PA/[employer] SUPERVISOR, agreed w/resident/PA/[employer] SUPERVISOR, reviewed EMR data (avail), reviewed images Attending Assessment/Plan: Pt's PO intake reamins poor and romain is very concerned that she has hardly eaten anything. She also did not work with PT today. Will hold dc today and encourage PO intake, taper O2 and follow. If better then anticiapte dc in am. Having regualr BMs and BP better on current regimen MOHINI MULLEN MD 08/02/16 1408: Attending MD Review Statement Attending Statement Attending MD Statement: examined this patient, discuss w/resident/PA/[employer] SUPERVISOR, agreed w/resident/PA/[employer] SUPERVISOR, reviewed EMR data (avail), reviewed images Attending Assessment/Plan: Pt's PO intake reamins poor and romain is very concerned that she has hardly eaten anything. She also did not work with PT today. Will hold dc today and encourage PO intake, taper O2 and follow. If better then anticiapte dc in am. Having regualr BMs and BP better on current regimen
[2016-08-02 14:38] VITALS: BP 120/70
[2016-08-02 21:57] VITALS: BP 140/74
--- NOTE | 2016-08-03 06:28 | PN- Housestaff ---
TRAN BETTS 08/03/16 0627: Subjective Follow-up For: Hip fracture status post repair Abdominal pain Decreased oral intake Complaints: no complaints Tele-Events Since Last Visit: No ekg monitor tech Subjective: Reviewed the patient lying comfortable on the bed she reports to have slept very well. The patient looks more bright on how she was yesterday. The patient reports that her abdominal pain has resolved and will a lot like to have abdomen packed because it makes it more painful. She denies any fevers or chills and he denies any dysuria. This patient did not eat anything from yesterday breakfast documented as 0% for breakfast lunch and dinner. This morning however would like to try some pancake and coffee. Review of Systems Constitutional: Denies: chills, fever. Cardiovascular: Denies: chest pain, palpitations. Respiratory: Denies: cough, short of breath. Gastrointestinal: Denies: abdominal pain, nausea, vomiting. Genitourinary: Denies: no symptoms. Musculoskeletal: Reports: see HPI, joint pain. Comments: All other systems reviewed and are negative Objective Last 24 Hrs of Vital Signs/I&O Vital Signs Date Time Temp Pulse Resp B/P B/P Pulse O2 O2 Flow FiO2 Mean Ox Delivery Rate 08/03 0633 97.7 68 20 164/68 99 08/03 0000 97 Nasal 1.0L Cannula 08/02 2208 66 158/70 08/02 2157 97.9 118 20 140/74 97 Nasal 1.0L Cannula 08/02 1600 Nasal 2.0L Cannula 08/02 1438 98.1 66 20 120/70 98 08/02 0921 154/74 08/02 0920 154/74 Intake & Output 08/03 1600 08/03 0800 08/03 0000 Intake Total 490 600 Output Total Balance 490 600 Intake, IV 10 Intake, Oral 480 600 Number 0 Bowel Movements Physical Exam General Appearance: Alert, Oriented X3, Cooperative, No Acute Distress Skin: No Rashes Skin Temp/Moisture Exam: Warm/Dry Sepsis Skin Exam (color): Normal for Ethnicity HEENT: Atraumatic, PERRLA, dry mucous membranes Neck: Supple, No JVD Cardiovascular: Regular Rate, Normal S1, Normal S2 Lungs: Clear to Auscultation, Normal Air Movement Abdomen: Normal Bowel Sounds, did not palpatedue due to patient request Neurological: Normal Speech, Normal Tone Extremities: No Clubbing, No Cyanosis, No Edema Current Medications: Current Medications Sig/Moises Start time Last Medication Dose Route Stop Time Status Admin Acetaminophen 1,000 MG TID 07/29 1000 AC 08/02 PO 2209 Amlodipine Besylate 5 MG DAILY 07/29 1000 AC 08/02 PO 0920 Atorvastatin Calcium 10 MG 1700 07/29 1700 AC 08/02 PO 1655 Benzocaine/Menthol 1 ELAINA Q1P PRN 07/31 1545 AC PO Benzocaine/Menthol 1 ELAINA TID 07/29 1600 AC 07/31 PO 1700 Docusate Sodium 100 MG DAILY NEEDED PRN 07/31 0830 AC 08/01 PO 0532 Enoxaparin Sodium 40 MG DAILY 07/29 1000 AC 08/02 SC 0919 Glycerin 2 SPRAY Q2P PRN 07/29 0945 AC 07/29 PO 1829 Labetalol HCl 300 MG BID 07/28 2200 AC 08/02 PO 2208 Levothyroxine Sodium 0.088 MG DAILY AC 07/29 0700 AC 08/03 PO 0714 Omeprazole 40 MG ONCE ONE 08/03 0845 DC PO 08/03 0846 Omeprazole 40 MG ONCE ONE 08/02 1415 DC 08/02 PO 08/02 1416 1655 Ondansetron HCl 4 MG Q6P PRN 08/01 1145 AC 08/03 IV 0806 Polyethylene Glycol 17 GM DAILY 07/31 1000 AC 07/31 PO 0847 Senna/Docusate Sodium 1 TAB BID 07/31 1000 AC 08/02 PO 2209 Sodium Chloride 1,000 ML Q13H 07/29 0945 DC 08/02 IV 0257 Tramadol HCl 25 MG Q6P PRN 07/31 0845 AC 08/01 PO 2324 Last 24 Hrs of Lab/[place] Results Last 24 Hrs of Labs/Mics: Laboratory Tests 08/03/16 0650: Anion Gap 6, Estimated GFR > 60, BUN/Creatinine Ratio 28.8 H 08/03/16 0030: Urine Color YEL, Urine Clarity CLEAR, Urine pH 6.0, Ur Specific [place] 1.015, Urine Protein NEG, Urine Ketones TRACE H, Urine Nitrite NEG, Urine Bilirubin NEG, Urine Urobilinogen 0.2, Ur Leukocyte Esterase TRACE H, Ur Microscopic SEDIMENT EXAMINED, Urine RBC 1-3, Urine WBC 3-5 H, Ur Epithelial Cells RARE, Urine Bacteria MANY H, Urine Mucus RARE, Urine Hemoglobin NEG, Urine Glucose NEG Microbiology 08/03 0030 URINE ROUT: Urine Culture - RECD Assessment/Plan Assessment: This is 86 year female with PMH of diastolic heart failure, hypertension, hypothyroidism, TIA 6 years ago, breast lumpectomies, 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 Left femoral neck fracture S/P hemiarthroplasty POD#6 Patient presented with left hip pain post mechanical fall. She was found to have left femoral neck fracture. Given that she has a history of HFpEF, HTN, and recurrent bilateral pleural effusions, cardiology recommended telemetry monitoring postoperatively for 24 hours and there after transfered to general medicine floor. She developed post-op confusion and because of that we discontinued Morphine. Patient of non-opiates pain control meds with good control. She has been getting PT except yesterday. She will be due for maría elena removal 14 days post procedure. She has been cleared by Ortho team for discharge Abdominal pain Patient reports abdominal pain, initially thought to be because of constipation. She however does not have constipation anymore as she has been having bowel movement. Her examination was benign, except for mild tenderness over her right side of the abdomen. She has been having regular bowel movements now. Xray of abdomen is normal. Patient hasnt been eating well, consuming about 10% of her meals only. Spouse very concererned. Acute blood loss anemia - s/p hemiarthroplasty Hemoglobin had dropped from initial 12 to 8.9 . Expected post hemiarthroplasty. Will keep following. CBC daily to keep hemoglobin above 8 BANDAR (Resolved) Confusion Patient was found to be mildly confused post surgery, this is most likely because of dehydration, opioids, anesthesia, and age. We will continue to avoid opioids and other medications that can alter mental status. This AM, patient is alert and not confused. Hypertension - relatively controlled Losartan 100 mg. She has been taking this substitution since admission. Continue amlodipine 5mg and Labetalol 300 mg twice a day. Lasix 20 mg home medication on hold Hypothyroidism Continue with home dose Synthroid 88 g daily History of TIA Statin Reduced oral intake/dehydration Patient has taken 0% of her meals for breakfast lunch and dinner yesterday. She appears a bit dry with dry mucous membranes. Promised to try pancake and coffee this morning, will assess percentage of intake and if still low a shunt will need gentle hydration with D5 normal saline at around 50 mL per hr. urine is showing high ketones suggestive of starvation Problem List: 1. Fractured femoral neck 2. Fall 3. BANDAR (acute kidney injury) 4. Hyponatremia 5. Constipation 6. HTN (hypertension) 7. Hypothyroid Pain Ratin Pain Location: Abdomen and hip Pain Goal: Pain 4 or less Pain Plan: Patient on IV tylenolol, oral tylenolol and tramadol for breakthrough pain Tomorrow's Labs & Rationales: Basic electrolytes DVT/Prophylaxis: pharmacological Consulting Request: Consulting Specialty: Orthopedics Consulting Physician: Dr. Rome Reason for Consult: lt. femoral neck fracture Discharge Plan Discharge Disposition: STR/NH Stable for Discharge? No Anticipated Discharge (Day): tomorrow If Discharged Today/In 24 Hrs: W-10/discharge paper done, DC summary done, CMR done MOHINI MULLEN MD 08/03/16 1110: Attending MD Review Statement Attending Statement Attending MD Statement: examined this patient, discuss w/resident/PA/[employer] SUPERVISOR, agreed w/resident/PA/[employer] SUPERVISOR, reviewed EMR data (avail), reviewed images Attending Assessment/Plan: Patient asked for pancakes and coffee today and she was eating a little bit better than yesterday. Appreciate nutrition's recommendations of liberalizing her diet and giving her ensure and we have put this on the discharge summary that she needs coaxing with every single meal. I think she is stable to go to the rehabilitation facility today. She will leave on Lovenox 40 mg a day subcutaneous for DVT prophylaxis for 4-[address] Rome in 2 weeks. I've reviewed the discharge summary and the blood pressure medicines and her thyroid medicines will be continued as before and she'll have close outpatient follow-up at rehabilitation.
[2016-08-03 06:33] VITALS: BP 164/68
[2016-08-03] MEDS ORDERED: LOVENOX40 MG/0.1 SC (11:13)
[2016-08-03 13:00] VITALS: BP 164/68
== END 2016-08-03 13:30 | DRG 470 ==
LOC: ERH 13:12 → ERHI 15:25 → 2NB 15:25 → 1NO 15:25 → ENRESERV 16:05 → 2NB 16:52 → 1NO 07-28 17:50 → CANRESERV 07-28 21:11 → ENRESERV 07-28 21:11 → 1NO 07-29 08:55 → CMPBEDREQ 07-29 12:00 → 1NO 07-30 11:27 → 2NB 07-31 01:12 → ENPENDDIS 08-03 11:36 → 2NB 08-03 13:30
PROVIDERS: Emergency Medicine; Internal Medicine; Physician Assistant Surgical; Student in an Organized Health Care Education/Training Program; ADMIT Internal Medicine
PROC: 0SRS019 Replacement of Left Hip Joint, Femoral Surface with Metal Synthetic Substitute, Cemented, Open Approach (ICD-10-PCS; principal; 2016-07-28)
DX: S72.002A Fracture of unspecified part of neck of left femur, initial encounter for closed fracture (principal); I13.0 Hypertensive heart and chronic kidney disease with heart failure and stage 1 through stage 4 chronic kidney disease, or unspecified chronic kidney disease; I50.32 Chronic diastolic (congestive) heart failure; F05 Delirium due to known physiological condition; D62 Acute posthemorrhagic anemia; E87.1 Hypo-osmolality and hyponatremia; E78.5 Hyperlipidemia, unspecified; E03.9 Hypothyroidism, unspecified; W18.30XA Fall on same level, unspecified, initial encounter; Y92.512 Supermarket, store or market as the place of occurrence of the external cause; Z86.73 Personal history of transient ischemic attack (TIA), and cerebral infarction without residual deficits; N18.3 Chronic kidney disease, stage 3 (moderate); J44.9 Chronic obstructive pulmonary disease, unspecified; Z87.891 Personal history of nicotine dependence; R91.8 Other nonspecific abnormal finding of lung field; E86.0 Dehydration; K59.00 Constipation, unspecified
CPT/HCPCS: 1NSP; 2NBP; 2NBSP; 36415; 72170; 73502-LT; 73552; 73560-LT; 74020; 81001; 81003; 82436; 87086; 87147; 88305; 93005; 93010; 93306; 96374; 97110-GO; 97116-GO; 97161-GP; 97530-GO; C1713; J0131; J1100; J1630; J1644; J1650; J2405; J3490; J7042

== ENCOUNTER 2017-06-17 06:03 | Inpatient (IN) | payer OTHER ==
[~2017-06-17] VITALS: Ht 157.5 cm; Wt 56.3 kg
--- NOTE | 2017-06-17 06:16 | ED DYSPNEA/ASTHMA COMPLAINT ---
See Addendum History of Present Illness General Chief Complaint: Dyspnea (COPD, CHF, Other) Stated Complaint: DIFF BREARHING, BACK AND CHEST PAIN PER Source: patient Exam Limitations: patient's age, dementia Vital Signs & Intake/Output Vital Signs & Intake/Output Vital Signs Date Time Temp Pulse Resp B/P B/P Pulse O2 O2 Flow FiO2 Mean Ox Delivery Rate 06/17 905 99.8 119 20 115/70 96 Nasal 3.0L Cannula 06/17 0858 98.7 06/17 0802 101.2 06/17 0800 101.2 06/17 0717 95 3.0L 06/17 0618 99.0 101 24 189/74 87 Room Air Allergies Coded Allergies: Iodinated Contrast- Oral and IV Dye (IODINATED CONTRAST MEDIA - ORAL AND) (IVP DYE 07/27/16) Penicillins (UNKNOWN 07/27/16) Sulfa (Sulfonamide Antibiotics) (UNKNOWN 07/27/16) Tetanus Vaccines and Toxoid (UNKNOWN 07/27/16) codeine (UNKNOWN 07/27/16) latex (ITCHING FROM LATEX GLOVES 07/27/16) Uncoded Allergies: RADIOACTIVE ISOTOPES (UNKNOWN 01/12/12) Triage Nurses Notes Reviewed? yes Onset: Gradual Duration: day(s):, getting worse, waxing and waning Timing: recent history Severity: moderate Activities at Onset: none Prior Episodes/Possible Cause: occasional episodes Modifying Factors: Improves With: rest. Associated Symptoms: cough HPI: 86 yo woman h/o htn presents with dyspnea at rest, cough, subjective temperatures for the past 2-3 days. She notes, "I have phlegm in the center part of my chest." She notes diffuse body aches in her back and chest. She is otherise well. (Ahsan DAVIS,Tc Bonilla) Reconcile Medications Amlodipine Besylate 5 MG TABLET 1 TAB PO DAILY HTN (Reported) Aspirin (Ecotrin*) 81 MG TABLET.DR 1 TAB PO DAILY tia (Reported) Atorvastatin Calcium 10 MG TABLET 1 TAB PO 1700 hld (Reported) Furosemide 20 MG TABLET 1 TAB PO DAILY HTN (Reported) Labetalol HCl 300 MG TABLET 1 TAB PO BID htn (Reported) Levothyroxine Sodium 88 MCG TABLET 1 TAB PO DAILY AC THYROID (Reported) Magnesium Oxide 400 MG TABLET 1 TAB PO DAILY SUPPLEMENT (Reported) Multivitamin (Daily Value) 1 EACH TABLET 1 TAB PO DAILY VITAMIN SUPPORT ( Reported) Potassium Chloride 20 MEQ TAB.ER.PRT 1 TAB PO DAILY SUPPLEMENT (Reported) Valsartan 80 MG TABLET 1 TAB PO DAILY HEART (Reported) (Agatha DAVIS,Darin Duff) Past History Travel History Traveled to [place] past 21 day No Medical History Any Pertinent Medical History? see below for history Neurological: CVA EENT: NONE Cardiovascular: hypertension, hyperlipidemia Respiratory: NONE Gastrointestinal: NONE Hepatic: NONE Renal: NONE Musculoskeletal: NONE Psychiatric: NONE Endocrine: hypothyroidism Blood Disorders: NONE Cancer(s): NONE History of MRSA: No History of VRE: No History of CDIFF: No Surgical History Surgical History: none, lumpectomy Psychosocial History Who do you live with Spouse Services at Home None What is your primary language Rwandan Family History Family History, If Any: FATHER FH: myocardial infarction SISTER FHx: leukemia BROTHER FH: myocardial infarction Hx Contributory? No (Ahsan DAVIS,Tc Bonilla) Review of Systems Review of Systems Constitutional: Reports: no symptoms. EENTM: Reports: no symptoms. Respiratory: Reports: no symptoms. Cardiovascular: Denies: see HPI. GI: Denies: see HPI. Genitourinary: Denies: see HPI. Musculoskeletal: Reports: no symptoms. Skin: Reports: no symptoms. Neurological/Psychological: Reports: no symptoms. Hematologic/Endocrine: Reports: no symptoms. Immunologic/Allergic: Reports: no symptoms. (Ahsan DAVIS,Tc Bonilla) Physical Exam Physical Exam General Appearance: well developed/nourished, mild distress Head: atraumatic, normal appearance Eyes: Bilateral: normal appearance, PERRL, EOMI. Ears, Nose, Throat: normal pharynx, normal ENT inspection, dry mucosa Neck: normal inspection, supple, full range of motion Respiratory: decreased breath sounds, rhonchi Cardiovascular: regular rate/rhythm Gastrointestinal: normal bowel sounds, soft, non-tender, no organomegaly Extremities: normal inspection, normal capillary refill, normal range of motion, no edema Core Measures ACS in differential dx? No CVA/TIA Diagnosis No Sepsis Present: No Sepsis Focused Exam Completed? No (Ahsan DAVIS,Tc Bonilla) Progress Differential Diagnosis: asthma, AMI, CHF, COPD Plan of Care: Orders Procedure Date/time Status CBC WITHOUT DIFFERENTIAL 06/18 0600 Active BASIC ELECTROLYTES PLUS BUN&CR 06/18 0600 Active Heart Healthy Diet 06/17 L Active Add-on Test (ER Only) 06/17 1000 Active ECHOCARDIOGRAM 06/17 1000 Active Add-on Test (ER Only) 06/17 0957 Active PT Evaluate & Treat 06/17 0922 Active Pathway - chart 06/17 0922 Active EKG 06/17 0907 Active TRC EVALUATION (GEN) 06/17 0902 Active Saline Lock 06/17 0902 Active Pathway - chart 06/17 0902 Active House Staff 06/17 0902 Active STREP PNEUMO URINARY ANTIGEN 06/17 0859 Active LEGIONELLA URINARY ANTIGEN 06/17 0859 Active LOWER RESPIRATORY CULTURE 06/17 0859 Active Patient Data 06/17 0853 Active Misc Message 06/17 0849 Active ED Holding Orders 06/17 0849 Active Admit to inpatient 06/17 0849 Active Vital Signs 06/17 0849 Active Code Status 06/17 0849 Active Add-on Test (ER Only) 06/17 0804 Active URINALYSIS 06/17 0755 Active TSH REFLEX 06/17 0637 Active PARTIAL THROMBOPLASTIN TIME 06/17 0637 Complete PROTHROMBIN TIME 06/17 0637 Complete LACTIC ACID 06/17 0637 Active FREE T4 06/17 0637 Active B-TYPE NATRIURETIC PEP (BNP) 06/17 0637 Active RAPID VIRAL INFLUENZA A 06/17 0625 Complete BLOOD CULTURE 06/17 0625 Active D-DIMER 06/17 0625 Complete BLOOD CULTURE 06/17 0624 Active TROPONIN LEVEL 06/17 0624 Active LIPASE 06/17 0624 Active HEPATIC FUNCTION PANEL 06/17 0624 Active CBC WITHOUT DIFFERENTIAL 06/17 0624 Complete BASIC METABOLIC PANEL 06/17 0624 Active AMYLASE 06/17 0624 Active EKG 06/17 0605 Active VTE Mechanical Prophylaxis 06/17 UNK Active Current Medications Sig/Moises Start time Last Medication Dose Stop Time Status Admin Ceftriaxone Sodium 1,000 MG DAILY 06/18 1000 UNVr (Rocephin) Azithromycin 500 MG Q24H 06/18 0900 UNVr (Zithromax) Sodium Chloride 250 ML (Normal Saline 0.9%) Heparin Sodium 5,000 UNIT Q8 06/17 1400 CANr (Porcine) Heparin Sodium 25,000 UNIT Q24H 06/17 1000 UNVr (Porcine) (Heparin) Sodium Chloride 500 ML Diltiazem HCl 125 MG Q24H 04/04 0945 UNVr (Cardizem DRIP) Sodium Chloride 100 ML (Normal Saline 0.9%) Sodium Chloride 1,000 ML ONCE ONE 06/17 944 AC (Normal Saline 0.9%) 06/17 1624 Acetaminophen 650 MG Q6P PRN 06/17 0915 AC (Tylenol) Laboratory Tests 06/17/17 0637: Anion Gap 13, Estimated GFR 47 L, BUN/Creatinine Ratio 26.4 H, Glucose 158 H, Lactic Acid 1.0, Calcium 9.5, Total Bilirubin 1.6 H, Direct Bilirubin 0.5 H, AST 18, ALT 41, Alkaline Phosphatase 151 H, Troponin I < 0.01, Pro-B- Natriuretic Pept 3070 H, Total Protein 5.9 L, Albumin 3.3 L, Amylase 40, Lipase 85, Free T4 Pending, TSH &T3 &Free T4 Intrp Pending, PT 12.9 H, INR 1.18 , APTT 40 H, D-Dimer High Sensitivty 649 H, CBC w Diff MAN DIFF ORDERED, RBC 4.83, MCV 81.2, MCH 26.4 L, MCHC 32.5 L, RDW 14.5, MPV 8.1, Gran % 94.3 H, Lymphocytes % 3.2 L, Monocytes % 2.4, Eosinophils % 0, Basophils % 0.1, Absolute Granulocytes 16.3 H, Segmented Neutrophils 88 H, Band Neutrophils 1, Absolute Lymphocytes 0.5 L, Lymphocytes 8 L, Monocytes 3, Absolute Monocytes 0.4, Absolute Eosinophils 0, Absolute Basophils 0, Platelet Estimate ADEQUATE, Normocytic RBCs VERIFIED, Normochromic RBCs VERIFIED 06/17/17 0625: Ndl-K-Igztvtltkar Pept Cancelled Microbiology 06/17 858 URINE ROUT: Legionella Antigen - ORD 06/17 858 URINE ROUT: Streptococcus pneumoniae Antigen (M - ORD 06/17 858 LOWER RESP: Respiratory Culture - ORD 06/17 858 LOWER RESP: Gram Stain - ORD 06/17 656 BLOOD: Blood Culture - RECD 06/18 655 NASOPHARYN: Influenza Virus A & B Rapid Smear - COMP 06/17 636 BLOOD: Blood Culture - RECD Diagnostic Imaging: Viewed by Me: Radiology Read. Discussed w/RAD: Radiology Read. Initial ED EKG: tachycardic, afib (new since prior) Hand-Off Endorsed To: Darin Snider MD Endorsed Time: 0700 Pending: labs, other, Xray (Ahsan DAVIS,Tc Bonilla) CXR Impression: PATIENT: ANDREW CANTU PRESENT AGE: 86 PATIENT ACCOUNT NO: [id number] : [birth year] LOCATION: [facility] ORDERING PHYSICIAN: Tc Foreman MD SERVICE DATE: 06/17/17 EXAM TYPE: RAD - XRY- PORTABLE CHEST XRAY EXAMINATION: XR PORTABLE CHEST CLINICAL INFORMATION: Hypoxia COMPARISON: 07/27/2016 TECHNIQUE: Portable frontal view of the chest was obtained. FINDINGS: There are new patchy opacities in the bilateral lung bases. There is blunting of the costophrenic sulci which is similar compared to prior. Background of diffuse interstitial prominence. The cardiomediastinal silhouette is unchanged. Right upper quadrant surgical clips presumably from prior cholecystectomy. No acute osseous abnormality seen. IMPRESSION: Bibasilar patchy opacities concerning for infection. Aspiration can have a similar appearance. Unchanged small bilateral pleural effusions. DICTATED BY: Allison Alcala MD DATE/ TIME DICTATED:06/17/17719 SUPERVISOR ENGRAVING:KENDALL DATE/TIME TRANSCRIBED: 06/17/17719 CONFIDENTIAL, DO NOT COPY WITHOUT APPROPRIATE AUTHORIZATION. < Electronically signed in Other Vendor System> SIGNED BY: Allison Alcala MD 06/17/1728 Comments: 06/17/2017 9:32:22 AM patient's case signed out to me by Dr. Foreman at shift change control specialist. The patient has bibasilar pneumonia and has been admitted to the hospitalist service. During signed out there was a question as to whether or not the patient was seen in a regular sinus rhythm or new-onset atrial fibrillation. Repeat EKG seems consistent with atrial fibrillation. I am paging Dr. Saldana to update him on this particular issue. I feel the patient will now require admission to telemetry and possible anticoagulation. Of note rectal examination revealed brown heme-negative stool. 06/17/2017 9:57:52 AM I have updated Dr. Saldana on this particular issue. Patient 's case also discussed with Dr. Fontana. (Agatha DAVIS,Darin Duff) Departure Departure Disposition: STILL A PATIENT Condition: Stable Referrals: Cem Sapp DO (PCP/Family) Departure Forms: Customer Survey General Discharge Information (Ahsan DAVIS,Tc Bonilla) Departure Clinical Impression Primary Impression: Pneumonia Qualifiers: Pneumonia type: due to unspecified organism Laterality: bilateral Lung location: lower lobe of lung Qualified Code: J18.1 - Lobar pneumonia, unspecified organism Secondary Impressions: Elevated brain natriuretic peptide (BNP) level, New onset atrial fibrillation, Renal insufficiency Admission Note Spoke With: Smiley Wylie MD Documentation of Exam: Documentation of any treatments & extenuating circumstances including Concerns Regarding Discharge (functional status, medication knowledge or non-compliance, living conditions, etc.) that warrant an admission rather than observation: Patient presents for evaluation of shortness of breath and chest pain. She was hypoxic upon arrival to the emergency department. She is currently suffering a bibasilar pneumonia with elevated white blood cell count and fever. Patient's hypoxia and fever have debilitated for and have compromised her functional capacity and cardio respiratory reserve's. I feel she is a poor candidate for outpatient management under the circumstances and would have great difficulty in compliance with outpatient care. The exertion of outpatient management could worsen her hypoxia causing additional chest pain syncope dysrhythmia and potentially respiratory failure. She will likely return in worse clinical condition. I feel she now requires hospitalization for an aggressive management with IV antibiotics and monitoring of vital signs and pulse oximetry. Oxygen should be supplemented and weaned as tolerated. Serial chest x-ray should be obtained to monitor for resolution of pneumonia. This patient's pneumonia does not respond to presumptive antibiotic management then infectious disease or pulmonary consultations should be considered. Cultures should be followed and care adjusted accordingly. PT consult should be considered given the patient's compromised functional reserves. I feel the patient will require a multiple day hospitalization. (Agatha DAVIS,Darin Duff) Critical Care Note Critical Care Note Critical Care Time: non-applicable (Ahsan DAVIS,Tc Bonilla) Critical Care Note Critical Care Time: 30-74 min (Agatha DAVIS,Darin Duff)
[2017-06-17 06:51] LABS: ABSOLUTE BASOPHIL COUNT 0 /CUMM (0.0-0.2); ABSOLUTE EOSINOPHIL COUNT 0 /CUMM (0.0-0.7); ABSOLUTE GRANULOCYTE CT 16.3 /CUMM (1.4-6.5); ABSOLUTE LYMPH COUNT 0.5 /CUMM (1.2-3.4); ABSOLUTE MONOCYTE COUNT 0.4 /CUMM (0.10-0.60); BASOPHIL % 0.1 % (0.0-2.0); EOSINOPHIL % 0 % (0-5); GRANULOCYTE % 94.3 % (42.2-75.2); HEMATOCRIT 39.2 % (37-47); MEAN CORPUSCULAR HGB 26.4 PG (27.0-31.0); MEAN CORPUSCULAR HGB CONC 32.5 G/DL (33.0-37.0); MEAN CORPUSCULAR VOLUME 81.2 FL (81.0-99.0); MEAN PLATELET VOLUME 8.1 FL (7.4-10.4); PLATELET COUNT 167 /CUMM (130-400); RBC DISTRIBUTION WIDTH 14.5 % (11.5-14.5); RED BLOOD CELL CT 4.83 /CUMM (4.20-5.40); WHITE BLOOD CELL COUNT 17.3 /CUMM (4.8-10.8)
--- NOTE | 2017-06-17 07:28 | RADIOLOGY REPORT ---
EXAMINATION: XR PORTABLE CHEST CLINICAL INFORMATION: Hypoxia COMPARISON: 07/27/2016 TECHNIQUE: Portable frontal view of the chest was obtained. FINDINGS: There are new patchy opacities in the bilateral lung bases. There is blunting of the costophrenic sulci which is similar compared to prior. Background of diffuse interstitial prominence. The cardiomediastinal silhouette is unchanged. Right upper quadrant surgical clips presumably from prior cholecystectomy. No acute osseous abnormality seen. IMPRESSION: Bibasilar patchy opacities concerning for infection. Aspiration can have a similar appearance. Unchanged small bilateral pleural effusions.
[2017-06-17] MEDS ORDERED: POTASSIUM CHLO20 ME2 PO (08:58)
[2017-06-17] MEDS ORDERED: VALSARTAN80 M1 PO (08:59)
[2017-06-17] MEDS ORDERED: MAGNESIUM OXID400 M1 PO (09:00)
[2017-06-17] MEDS ORDERED: DAILY VALUE1 EACH PO (09:01)
[2017-06-17 10:08] LABS: PT 12.9 SEC (9.4-12.5); PTT 40 SEC (25-37)
--- NOTE | 2017-06-17 10:08 | History & Physical ---
Jayde Castro 06/17/17 1007: General Information and HPI MD Statement: I have seen and personally examined ANDREW SMITH and documented this H&P. The patient is a 86 year old F who presented with a patient stated chief complaint of [SOB]. Source of Information: patient, family, old records Exam Limitations: no limitations History of Present Illness: Mrs. Smith is an 86 yo lady with PMHx. 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 Patient has difficulty hearing, history taking was challenging, most of the history provided by her who was at bedside. Patient was in her usual state of health until yesterday when she started to notice shortness of breath both at rest and ambulation, she is also complaining of generalized malaise, and bilateral shoulder pain and back pain, she also complained of productive cough of white phlegm with no blood, her MAXIMUM TEMPERATURE is our emergency department was 101.2. Patient denies any chest pain, palpitation, dizziness, sore throat, runny nose, abdominal pain, no change in urinary or bowel habits. No sick contact or recent travel. She is ambulating independent she was able to do ADLs, IADLs. Allergies/Medications Allergies: Coded Allergies: Iodinated Contrast- Oral and IV Dye (IODINATED CONTRAST MEDIA - ORAL AND) (IVP DYE 07/27/16) Penicillins (UNKNOWN 07/27/16) Sulfa (Sulfonamide Antibiotics) (UNKNOWN 07/27/16) Tetanus Vaccines and Toxoid (UNKNOWN 07/27/16) codeine (UNKNOWN 07/27/16) latex (ITCHING FROM LATEX GLOVES 07/27/16) Uncoded Allergies: RADIOACTIVE ISOTOPES (UNKNOWN 01/12/12) Home Med list Amlodipine Besylate 5 MG TABLET 1 TAB PO DAILY HTN (Reported) Aspirin (Ecotrin*) 81 MG TABLET.DR 1 TAB PO DAILY tia (Reported) Atorvastatin Calcium 10 MG TABLET 1 TAB PO 1700 hld (Reported) Furosemide 20 MG TABLET 1 TAB PO DAILY HTN (Reported) Labetalol HCl 300 MG TABLET 1 TAB PO BID htn (Reported) Levothyroxine Sodium 88 MCG TABLET 1 TAB PO DAILY AC THYROID (Reported) Magnesium Oxide 400 MG TABLET 1 TAB PO DAILY SUPPLEMENT (Reported) Multivitamin (Daily Value) 1 EACH TABLET 1 TAB PO DAILY VITAMIN SUPPORT ( Reported) Potassium Chloride 20 MEQ TAB.ER.PRT 1 TAB PO DAILY SUPPLEMENT (Reported) Valsartan 80 MG TABLET 1 TAB PO DAILY HEART (Reported) Past History Travel History Traveled to [place] past 21 day No Medical History Neurological: CVA, TIA EENT: NONE, hearing loss Cardiovascular: hypertension, hyperlipidemia Respiratory: NONE, COPD Gastrointestinal: NONE Hepatic: NONE Renal: NONE Musculoskeletal: NONE, shoulder pain Back pain Psychiatric: NONE Endocrine: hypothyroidism Blood Disorders: NONE Cancer(s): NONE History of MRSA: No History of VRE: No History of CDIFF: No Surgical History Surgical History: none, lumpectomy Past Family/Social History Family History Relations & Conditions if any FATHER FH: myocardial infarction SISTER FHx: leukemia BROTHER FH: myocardial infarction Psychosocial History Who Do You Live With? spouse Services at Home: None Primary Language: Telugu ETOH Use: denies use Living Will? no Functional Ability ADLs Independent: dressing, eating, toileting, bathing. Ambulation: independent IADLs Independent: shopping, housework, finances, food prep, telephone, medication admin. Needs Assist: transportation. Review of Systems Review of Systems Constitutional: Reports: chills, malaise. Cardiovascular: Reports: no symptoms. Respiratory: Reports: cough, short of breath, sputum production. GI: Reports: no symptoms. Genitourinary: Reports: no symptoms. Musculoskeletal: Reports: back pain, joint pain (bilateral shoulder). Skin: Reports: no symptoms. Neurological/Psychological: Reports: no symptoms. Hematologic/Endocrine: Reports: no symptoms. Immunologic/Allergic: Reports: no symptoms. All Other Systems: Reviewed and Negative Exam & Diagnostic Data Last 24 Hrs of Vital Signs/I&O Vital Signs Date Time Temp Pulse Resp B/P B/P Pulse O2 O2 Flow FiO2 Mean Ox Delivery Rate 06/17 0906 99.8 119 20 115/70 96 Nasal 3.0L Cannula 06/17 0858 98.7 06/17 0802 101.2 06/17 08 101.2 06/17 0717 95 3.0L 06/17 0518 99.0 101 24 189/74 87 Room Air Intake & Output 06/17 1600 06/17 0806/17 0000 Intake Total Output Total Balance Patient 120 lb Weight Weight Reported by Patient Measurement Method Physical Exam General Appearance Alert, Oriented X3, Cooperative, Mild Distress Skin No Rashes, No Breakdown Skin Temp/Moisture Exam: Warm/Dry Neck Supple, No JVD Lymphatic Axillary nl, Cervical nl Cardiovascular Normal S1, Normal S2, IRREGULAR RHYTHM Lungs Normal Air Movement, BIBASILAR CRACKLE AND RHONCHI Abdomen Normal Bowel Sounds, Soft, No Tenderness, No Hepatospenomegaly, No Masses Extremities No Edema, Normal Pulses Vascular Normal Pulses, Pulses Symmetrical Last 24 Hrs of Labs/[place]: Laboratory Tests 06/17/17 0637: Anion Gap 13, Estimated GFR 47 L, BUN/Creatinine Ratio 26.4 H, Glucose 158 H, Lactic Acid 1.0, Calcium 9.5, Phosphorus 3.0, Magnesium 1.9, Total Bilirubin 1.6 H, Direct Bilirubin 0.5 H, AST 18, ALT 41, Alkaline Phosphatase 151 H, Troponin I < 0.01, Wmv-H-Abindeomwqn Pept 3070 H, Total Protein 5.9 L, Albumin 3.3 L, Amylase 40, Lipase 85, Free T4 1.56, Total T3 Pending, TSH &T3 &Free T4 Intrp Pending, PT 12.9 H, INR 1.18, APTT 40 H, D-Dimer High Sensitivty 649 H, CBC w Diff MAN DIFF ORDERED, RBC 4.83, MCV 81.2, MCH 26.4 L, MCHC 32.5 L, RDW 14.5, MPV 8.1, Gran % 94.3 H, Lymphocytes % 3.2 L, Monocytes % 2.4, Eosinophils % 0, Basophils % 0.1, Absolute Granulocytes 16.3 H, Segmented Neutrophils 88 H, Band Neutrophils 1, Absolute Lymphocytes 0.5 L, Lymphocytes 8 L, Monocytes 3, Absolute Monocytes 0.4, Absolute Eosinophils 0, Absolute Basophils 0, Platelet Estimate ADEQUATE, Normocytic RBCs VERIFIED, Normochromic RBCs VERIFIED 06/17/17 0625: Hnq-A-Eaotdzhdmwg Pept Cancelled Microbiology 06/17 858 URINE ROUT: Legionella Antigen - ORD 04/04 0859 URINE ROUT: Streptococcus pneumoniae Antigen (M - ORD 06/17 0859 LOWER RESP: Respiratory Culture - ORD 06/17 0859 LOWER RESP: Gram Stain - ORD 06/17 0657 BLOOD: Blood Culture - RECD 06/17 0656 NASOPHARYN: Influenza Virus A & B Rapid Smear - COMP 06/17 0637 BLOOD: Blood Culture - RECD Diagnostic Data EKG Results afib, [address]-depression in the lateral lead, QTC:496 CXR Results IMPRESSION: Bibasilar patchy opacities concerning for infection. Aspiration can have a similar appearance. Unchanged small bilateral pleural effusions. Other Results - Assessment/Plan Assessment: Mrs. Smith is an 86 yo lady with PMHx. 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 found to be febrile, labs showed leukocytosis, CXR showed B/L basilar opacity, and her EKG showed new onset A.fib with RVR, she is admitted to telemetry floor for new onset A.fib with RVR, and for CAP. Assessment: #New onset A.fib with RVR #CAP #Hx. of HFrEF #Hx. of HTN #Hx. of TIA/Stroke #Hx. of Hypothyroidism Plan: * Her [id number] score is 7, she has high risk of stroke, ED contacted maintenance and utilities supervisor who recommend to start heparin gtt, and cardizem gtt. Patient at home on Labetalol 300mg BID, she didn't receive her am dose today, resume her home dose Labetalol and taper Cardizem drip as tolerated * She was started on IV Ceftriaxone and IV azithromycin for CAP, will continue with that. * Blood Cx, Urine culture sent by ED, will add sputum Cx * Will check urine legionella and strept antigen * Will check another set of Troponin and EKG at 1 pm * Cardiology consult * TRC/NEBS * CBC,BEP tomorrow * Will hold Lasix given her Creat is 1.1, resume from tomorrow if Creatinine back to baseline, unless she needed diuresis today based on her clinical picture * Will check Mg, Po4, TSH, T4 * Echocardiogram sent please F/U * Will continue home medication except Lasix on hold DVT ppx: IV heparin Full code As Ranked By This Provider Problem List: 1. New onset atrial fibrillation 2. Status post hip hemiarthroplasty 3. BANDAR (acute kidney injury) 4. Community acquired pneumonia Core Measures/Misc (11/30) Acute Coronary Syndrome ACS Diagnosis: No Congestive Heart Failure Congestive Heart Failure Diagnosis No Cerebrovascular Accident CVA/TIA Diagnosis: No VTE (View Protocol) VTE Risk Factors Age>40 No Mechanical VTE Prophylaxis d/t N/A MechProphylax Ordered No VTE Pharm Prophylaxis d/t NA PharmProphylax ordered Sepsis (View protocol) Sepsis Present: Yes Garo Zavala 06/17/17 1232: Attending MD Review Statement Attending Statement Attending MD Statement: examined this patient, discuss w/resident/PA/[employer], agreed w/resident/PA/[employer], discussed with family, reviewed EMR data (avail), discussed with nursing, discussed with case mgmt, reviewed images, amended to note Attending Assessment/Plan: 86 o/f with pmh if htn, chf, TIA comes with acute dyspnea, productive cough, shaking chills, fever 101.2. Patient is admitted here for commnity acquired pneumonia and uncontrolled afib with pleuritic chest pain with negative cardiac enzmyes. Cardiology consulted in ER and recommend iv heparin drip , iv cardizem. Patient started on iv antibitoics, oxygen supplementation, TRCs, obtain CT chest to evalaute plerual effusion, monitor labs and hemodynamcis, titrate cardizem as allowed. gi/dvt prophyalxis full code. Plan of care d/wed patient bedside.
--- NOTE | 2017-06-17 12:00 | ULTRASOUND REPORT ---
EXAMINATION: US ABDOMEN LIMITED CLINICAL INFORMATION: Elevated bilirubin, alkaline phosphatase. Rule out biliary pathology.. COMPARISON: CT abdomen pelvis 10/28/2009 TECHNIQUE: Real-time imaging of the right upper quadrant abdominal viscera. Examination limited secondary to portable nature and patient difficulty following breathing instructions. FINDINGS: PANCREAS: Visualized portions of pancreas are normal in appearance. LIVER: The liver demonstrates normal size, contour and echogenicity. No focal lesion . Mild diffuse intrahepatic biliary duct dilatation, nonspecific. GALLBLADDER: The gallbladder is physiologically distended. There is some debris/gravel dependently within the gallbladder. Suspected 5 mm gallstone. No gallbladder wall thickening or pericholecystic fluid. Negative sonographic Benavides's sign. COMMON BILE DUCT: Normal in caliber measuring 0.3 cm in diameter. RIGHT KIDNEY: The kidney measures 10.9 cm in maximum dimension. No renal calculi or hydronephrosis. 4.7 cm heterogeneous but primarily echogenic focus within the midpole right kidney is nonspecific but most suggestive of an angiomyolipoma. FREE FLUID: None. IMPRESSION: 1. Cholelithiasis. No sonographic evidence to suggest acute cholecystitis. 2. Mild diffuse intrahepatic biliary ductal dilatation. This is a nonspecific finding and may be within normal limits for a patient of this age. The common bile duct is not dilated. 3. 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
[2017-06-17 14:05] VITALS: BP 142/70
[2017-06-17 17:45] LABS: PTT 51 SEC (25-37)
--- NOTE | 2017-06-17 19:45 | Cons- Cardiology ---
General Information and HPI Consulting Request Date of Consult: 06/17/17 Requested By: Garo Zavala MD History of Present Illness: This patient is an 86 year old female with history of hypertension, COPD and TIA. She presented to the ER for evaluation of shortness of breath and a cough. In the ER the patient was found to be in atrial fibrillation with mildly increased heart rate. The patient is a very poor historian partly due to her severe presbycussis. She does have a left chest discomfort and discomfort with inhalation. She denies lightheadedness or palpitations. The patient has a fever and increased WBC count. She also has an elevated D-dimer. The patient's last echocardiogram showed a normal EF of 65% with mild LVH and mild tricuspid regurgitation. Allergies/Medications Allergies: Coded Allergies: Iodinated Contrast- Oral and IV Dye (IODINATED CONTRAST MEDIA - ORAL AND) (IVP DYE 07/27/16) Penicillins (UNKNOWN 07/27/16) Sulfa (Sulfonamide Antibiotics) (UNKNOWN 07/27/16) Tetanus Vaccines and Toxoid (UNKNOWN 07/27/16) codeine (UNKNOWN 07/27/16) latex (ITCHING FROM LATEX GLOVES 07/27/16) Uncoded Allergies: RADIOACTIVE ISOTOPES (UNKNOWN 01/12/12) Home Med List: Amlodipine Besylate 5 MG TABLET 1 TAB PO DAILY HTN (Reported) Aspirin (Ecotrin*) 81 MG TABLET.DR 1 TAB PO DAILY tia (Reported) Atorvastatin Calcium 10 MG TABLET 1 TAB PO 1700 hld (Reported) Furosemide 20 MG TABLET 1 TAB PO DAILY HTN (Reported) Labetalol HCl 300 MG TABLET 1 TAB PO BID htn (Reported) Levothyroxine Sodium 88 MCG TABLET 1 TAB PO DAILY AC THYROID (Reported) Magnesium Oxide 400 MG TABLET 1 TAB PO DAILY SUPPLEMENT (Reported) Multivitamin (Daily Value) 1 EACH TABLET 1 TAB PO DAILY VITAMIN SUPPORT ( Reported) Potassium Chloride 20 MEQ TAB.ER.PRT 1 TAB PO DAILY SUPPLEMENT (Reported) Valsartan 80 MG TABLET 1 TAB PO DAILY HEART (Reported) Review of Systems Review of Systems: A review of systems is unobtainable. Past History Travel History Traveled to [place] past 21 day No Medical History Neurological: CVA, TIA EENT: NONE, hearing loss Cardiovascular: hypertension, hyperlipidemia Respiratory: NONE, COPD Gastrointestinal: NONE Hepatic: NONE Renal: NONE Musculoskeletal: NONE, shoulder pain Back pain Psychiatric: NONE Endocrine: hypothyroidism Blood Disorders: NONE Cancer(s): NONE Surgical History Surgical History: lumpectomy, 1 Family History Relations & Conditions If Any: FATHER FH: myocardial infarction SISTER FHx: leukemia BROTHER FH: myocardial infarction Psychosocial History Where Do You Live? Home Who Do You Live With? spouse Services at Home: None Primary Language: Marshallese Smoking Status: Unknown If Ever Smoked ETOH Use: denies use Living Will? no Functional Ability ADLs Independent: dressing, eating, toileting, bathing. Ambulation: independent IADLs Independent: shopping, housework, finances, food prep, telephone, medication admin. Needs Assist: transportation. Exam & Diagnostic Data Vital Signs and I&O Vital Signs Date Time Temp Pulse Resp B/P B/P Pulse O2 O2 Flow FiO2 Mean Ox Delivery Rate 06/17 1803 95 Nasal 3.0L Cannula 06/17 1405 97.9 91 20 142/70 93 Nasal Cannula 06/17 1132 97.9 93 18 126/64 92 Nasal 3.0L Cannula 06/17 0906 99.8 119 20 115/70 96 Nasal 3.0L Cannula 06/17 0858 98.7 06/17 0802 101.2 06/17 0800 101.2 06/17 0717 95 3.0L 06/17 0618 99.0 101 24 189/74 87 Room Air Intake & Output 06/17 1600 06/17 0800 06/17 0000 04/ 1600 06/16 0800 06/16 0000 Intake Total Output Total Balance Patient 120 lb Weight Weight Reported by Patient Measurement Method Physical Exam: General: WD/WN female in NAD; alert and oriented x 3 HEENT: NC/AT, PERRL, EOMI Neck: no JVD, no carotid bruit Heart: irregularly irregular with 2/6 systolic murmur Lungs: scant crackles at the left base Abdomen: soft, NT, +ve bowel sounds Extremities: no edema Assessment/Plan Assessment/Plan * This patient has atrial fibrillation of unknown duration. Her heart rate is only mildly elevated. I recommend discontinuing Amlodipine in favor of Cardizem CD 120mg daily which will provide some additional rate control. Labetolol can be continued as previously prescribed. Check a TSH and free T4 and obtain an echocardiogram. Begin Eliquis 2.5mg BID for stroke prophylaxis. * I do not think this patient has heart failure but I do have concern that her shortness of breath, elevated D-dimer and new onset atrial fibrillation may be due to a PE, especially considering her age, relative immobility and history of cancer. Obtain an ABG and is she has a metabolic alkylosis with decreased pO2 then I recommend obtaining a CT angiogram to assess for a PE. Her chest X-ray shows some subtle finding without a definite infiltrate. Consult Acknowledgment - Thank you for your consult request.
--- NOTE | 2017-06-17 21:12 | CT SCAN REPORT ---
EXAMINATION: CT CHEST WITHOUT CONTRAST CLINICAL INFORMATION: Follow-up pleural effusion. Fever. Chest pain. Chills. COMPARISON: Same day chest radiograph. February 2012. TECHNIQUE: Contiguous axial thin section helical images of the chest were performed without contrast. The data set was reformatted in the coronal and sagittal planes and reviewed on an independent workstation. DLP: 178 mGy-cm. FINDINGS: The heart is of normal size. There is a small pericardial effusion. There is neither mediastinal, hilar nor axillary lymphadenopathy. There are no chest wall masses. Review of lung windows demonstrates demonstrates that there aren't no pneumothoraces. There are small bilateral pleural effusions, left greater than right. There is nonspecific patchy multifocal groundglass opacification as well as multifocal linear opacification, similar but more prominent than on the prior exam. There are several pulmonary nodules present. Within the right lower lobe on image 245/456, there is a 5 mm nodule. Also within the right lower lobe on image 257, there is a 4 mm nodule. Within the right middle lobe on image 279, there is a 9 mm nodule. Images of the upper abdomen demonstrate that the liver is of normal size and attenuation without focal lesions. Normal adrenal glands are identified. Within the upper abdomen, an atrophic left kidney is identified. The spleen is enlarged measuring approximately 13 cm. Bone windows: Neither sclerotic nor lytic bone lesions are identified. IMPRESSION: Left greater than right bilateral pleural effusions. Nonspecific multifocal groundglass and linear opacification bilaterally. The appearance is nonspecific, though consider atypical infectious and inflammatory processes. Small pericardial effusion. Splenomegaly. Atrophic left kidney. Several subcentimeter pulmonary nodules. The largest measures 9 mm. Various management parameters for solitary pulmonary nodules are in the literature. According to the Fleischner Society, recommendations for pulmonary nodules are as follows: Nodule size < or = to 4 mm in LOW RISK PATIENTS: No follow up needed. Nodule size < or = to 4 mm in HIGH RISK PATIENTS: Follow up CT at 12 months; if unchanged, no further follow up. Nodule size > 4-6 mm in LOW RISK PATIENTS: Follow up CT at 12 months; if unchanged, no further follow up. Nodule size > 4-6 mm in HIGH RISK PATIENTS: Initial follow up CT at 6-12 months, then at 18-24 months if no change. Nodule size > 6-8 mm in LOW RISK PATIENTS: Initial follow up CT at 6-12 months, then at 18-24 months if no change. Nodule size > 6-8 mm in HIGH RISK PATIENTS: Initial follow up CT at 3-6 months, then 9-12 months and 24 months if no change. Nodule size > 8 mm in LOW RISK PATIENTS: Follow up CT at around 3, 9, and 24 months, dynamic contrast-enhanced CT, PET, and/or biopsy. Nodule size > 8 mm in HIGH RISK PATIENTS: Same as for low-risk patients.
[2017-06-17 21:30] VITALS: BP 172/62
[2017-06-17 21:42] VITALS: BP 142/60
[2017-06-17 22:07] VITALS: BP 142/62
[2017-06-18 07:06] VITALS: BP 150/60
--- NOTE | 2017-06-18 07:35 | ECHOCARDIOGRAM REPORT ---
ANDREW CANTU Age: 86 : 1930 Gender: F Exam Date: 06/17/2017 16:22 Exam Location: [address] Ht (in): 62 Wt (lb): 120 BSA: 1.55 BP: 126 / 64 Ordering Physician: Darin Snider MD Referring Physician: Kimo Fontana MD, PhD Technologist: Soraida Beckwith [facility] Room Number: [id number] Indications: AFIB/FLUTTER Rhythm: Atrial fibrillation Technical Quality: good FINDINGS Left Ventricle Normal left ventricular size with moderate left ventricular hypertrophy. Normal systolic function with no obvious regional wall motion abnormalities. The ejection fraction is visually estimated at 60%. Right Ventricle The right ventricle is normal in size and function. Right Atrium The right atrium is normal in size. Left Atrium The left atrium is top normal in size. The interatrial septum is intact. Mitral Valve The mitral valve demonstrates mild posterior annular calcification with normal function. There is mild mitral regurgitation. Aortic Valve Mildly thickened aortic valve without significant sclerosis or stenosis. There is no aortic regurgitation. Tricuspid Valve The tricuspid valve is normal in structure and function. There is mild tricuspid regurgitation. Pulmonary artery systolic pressure is normal. Pulmonic Valve Structurally normal pulmonic valve. There is trace pulmonic regurgitation. Pericardium Normal pericardium with small to moderate pericardial effusion. There is no tamponade physiology. No pleural effusion. Great Vessels Normal aortic root dimension. The aortic arch and great vessels are well seen and are normal. CONCLUSIONS 1. Normal EF of 60%. 2. Mild to moderate left ventricular hypertrophy. 3. The left atrium is top normal in size. 4. Mild mitral regurgitation. 5. Mild tricuspid regurgitation. 6. Trace pulmonic regurgitation. 7. Small to moderate pericardial effusion. Kimo Fontana M.D. (Electronically Signed) Final Date: 18 June 2017 07:34 MEASUREMENTS (Male / Female) Normal Values 2D ECHO LV Diastolic Diameter PLAX 4.0 cm 4.2 - 5.9 / 3.9 - 5.3 cm LV Systolic Diameter PLAX 2.8 cm 2.1 - 4.0 cm LV Fractional Shortening PLAX 30.0 % 25 - 46 % LV Ejection Fraction 2D Teich 57.8 % IVS Diastolic Thickness 1.4 cm LVPW Diastolic Thickness 1.4 cm LV Relative Wall Thickness 0.7 RV Internal Dim ED PLAX 2.7 cm 1.9 - 3.8 cm LVOT Diameter 2.0 cm Aortic Root Diameter 2.5 cm LA Systolic Diameter LX 4.0 cm 3.0 - 4.0 / 2.7 - 3.8 cm LA Volume 60.0 cm 18 - 58 / 22 - 52 cm Ascending Aorta Diameter 3.1 cm DOPPLER AV Peak Velocity 129.0 cm/s AV Peak Gradient 6.7 mmHg AV Mean Velocity 96.4 cm/s AV Mean Gradient 4.0 mmHg AV Velocity Time Integral 36.4 cm LVOT Peak Velocity 101.0 cm/s LVOT Peak Gradient 4.1 mmHg LVOT Mean Velocity 72.6 cm/s LVOT Mean Gradient 2.0 mmHg LVOT Velocity Time Integral 25.7 cm LVOT Stroke Volume 80.7 cm AV Area Cont Eq vti 2.2 cm AV Area Cont Eq pk 2.5 cm MV Peak Velocity 142.0 cm/s MV Peak Gradient 8.1 mmHg MV Mean Velocity 63.0 cm/s MV Mean Gradient 2.0 mmHg Mitral E Point Velocity 80.5 cm/s Mitral A Point Velocity 110.0 cm/s Mitral E to A Ratio 0.7 MV PHT Velocity 82.5 cm/s MV Deceleration [place] 273.0 cm/s MV Pressure Half Time 90.7 ms MV Area PHT 2.4 cm MV Deceleration Time 277.0 ms TR Peak Velocity 267.0 cm/s TR Peak Gradient 28.5 mmHg Right Atrial Pressure 5.0 mmHg Pulmonary Artery Systolic Pressu 33.5 mmHg Right Ventricular Systolic Press 33.5 mmHg PV Peak Velocity 85.5 cm/s PV Peak Gradient 2.9 mmHg PV Mean Velocity 60.0 cm/s PV Mean Gradient 2.0 mmHg PV Velocity Time Integral 18.3 cm LV E' Lateral Velocity 5.9 cm/s Mitral E to LV E' Lateral Ratio 13.5 LV E' Septal Velocity 4.9 cm/s Mitral E to LV E' Septal Ratio 16.5
--- NOTE | 2017-06-18 07:47 | PN- Housestaff ---
Jackeline Clement 06/18/17 0722: Subjective Follow-up For: Pneumonia Complaints: no complaints Tele-Events Since Last Visit: NSR. She was briefly found to be in Afib during the day. Subjective: She was comfortable, but was concerned about anxiety. Vitals remained stable overnight, and she was afebrile. Reviewed the results of the ABG done yesterday, and discussed w/ the attending about the need for evaluation of PE. It was thought that her symptoms were likely due to pleural effusion and pneumonia. SHe was afebrile overnight. Review of Systems Constitutional: Reports: see HPI. Objective Last 24 Hrs of Vital Signs/I&O Vital Signs Date Time Temp Pulse Resp B/P B/P Pulse O2 O2 Flow FiO2 Mean Ox Delivery Rate 06/18 0706 98.1 73 20 150/60 93 Nasal 3.0L Cannula 06/18 0000 Nasal 2.0L Cannula 06/17 2303 67 152/60 06/17 2207 98.3 63 20 142/62 94 Nasal Cannula 06/17 2142 66 142/60 06/17 2130 67 172/62 06/17 2048 Nasal 3.0L Cannula 06/17 1803 95 Nasal 3.0L Cannula 06/17 1405 97.9 91 20 142/70 93 Nasal Cannula 06/17 1132 97.9 93 18 126/64 92 Nasal 3.0L Cannula 06/17 0906 99.8 119 20 115/70 96 Nasal 3.0L Cannula 06/17 0858 98.7 06/17 0802 101.2 06/17 0800 101.2 Intake & Output 06/18 0800 04/ 0000 06/17 1600 Intake Total 300 Output Total 200 100 Balance 100 -100 Intake, Oral 300 Number 1 Bowel Movements Output, Urine 200 100 Patient 126 lb Weight Weight Bed scale Measurement Method Physical Exam General Appearance: No Acute Distress Other Physical Findings: General Exam: AAOx3, No acute distress, Skin: No rashes, no breakdown;HEENT: PERRLA, EOMI;Neck: Supple, No JVD; No cervical lymphadenopathy;CVS: irregularly irregular rate, systolic murmur; Normal S1,S2;Resp: Normal air entry, b/l rales; Abdomen: Soft, No tenderness, Normal Bowel Sounds;Neuro: Normal Speech, Strength 5/5 b/l x 4 extremities, Sensation intact, CN III-XII NL, Reflexes 2+; Extremities: No cyanosis, no pedal edema Current Medications: Current Medications Sig/Moises Start time Last Medication Dose Route Stop Time Status Admin Acetaminophen 650 MG Q6P PRN 06/17 0915 AC 06/17 PO 2117 Acetaminophen 0 .STK-MED ONE 06/17 0806 DC PO Acetaminophen 975 MG ONCE ONE 06/17 0800 DC 06/17 PO 06/17 0801 0802 Amlodipine Besylate 5 MG DAILY 06/18 1000 CAN PO Apixaban 2.5 MG BID 06/17 2200 AC 06/17 PO 2301 Aspirin Buffered 81 MG DAILY 06/18 1000 AC PO Atorvastatin Calcium 10 MG 1700 06/17 1700 AC 06/17 PO 1556 Azithromycin 500 MG Q24H 06/18 0900 AC Sodium Chloride 250 ML IV Azithromycin 500 MG ONCE ONE 06/17 0830 DC 06/17 Sodium Chloride 250 ML IV 06/17 0929 0838 Ceftriaxone Sodium 1,000 MG DAILY 06/18 1000 AC IV Ceftriaxone Sodium 0 .STK-MED ONE 06/17 0835 DC .ROUTE Ceftriaxone Sodium 1,000 MG ONCE ONE 06/17 0830 DC 06/17 IV 06/17 0831 0838 Dextrose/Water 1,000 ML Q13H 06/17 1715 CAN IV 06/18 0614 Diltiazem HCl 120 MG DAILY 06/18 1000 AC PO Diltiazem HCl 125 MG Q24H 06/17 0945 DC 06/17 Sodium Chloride 100 ML IV 06/17 2230 1026 Furosemide 20 MG DAILY 06/18 1000 AC PO Heparin Sodium 5,000 UNIT Q8 06/17 1400 CAN (Porcine) SC Heparin Sodium 0 .STK-MED ONE 06/17 1029 DC (Porcine) .ROUTE Heparin Sodium 2,500 UNIT ONCE ONE 06/17 1000 DC 06/17 (Porcine) IV 06/17 1001 1027 Heparin Sodium 25,000 UNIT Q24H 06/17 1000 DC 06/17 (Porcine) IV 06/17 2300 1027 Sodium Chloride 500 ML Labetalol HCl 300 MG BID 06/17 2200 AC 06/17 PO 2303 Levothyroxine Sodium 0.088 MG DAILY AC 06/18 0700 AC 06/18 PO 0526 Losartan Potassium 50 MG DAILY 06/18 1000 AC PO Magnesium Oxide 400 MG DAILY 06/17 1029 AC 06/17 PO 1131 Multivitamins 1 TAB DAILY 06/18 1000 AC Therapeutic PO Nitroglycerin 0.4 MG ONCE ONE 06/17 2144 DC 06/17 SL 06/17 2145 214 Potassium Chloride 20 MEQ DAILY 06/18 1000 AC PO Sodium Chloride 1,000 ML ONCE ONE 06/17 0945 DC 06/17 IV 06/17 1624 1035 Last 24 Hrs of Lab/[place] Results Last 24 Hrs of Labs/Mics: Laboratory Tests 06/18/17 0615: Sodium Pending, Potassium Pending, Chloride Pending, Carbon Dioxide Pending, Anion Gap Pending, BUN Pending, Creatinine Pending, BUN/Creatinine Ratio Pending , Troponin I Pending, CBC w Diff Pending, WBC Pending, RBC Pending, Hgb Pending, Hct Pending, MCV Pending, MCH Pending, MCHC Pending, RDW Pending, Plt Count Pending, MPV Pending 06/17/17 2245: pH 7.49 H, pCO2 31 L, pO2 71 L, HCO3 23, ABG O2 Sat (Measured) 94.0 L, Carboxyhemoglobin 0.4 L, O2 Concentration % 3L, O2 Delivery Method N/C, Phlebotomy Draw Site RIGHT RADIAL 06/17/17 2245: pH Pending, pCO2 Pending, pO2 Pending, HCO3 Pending, ABG O2 Sat (Measured) Pending, P-50 (Temp Corrected) Pending, Carboxyhemoglobin Pending, O2 Concentration % Pending, Temperature Pending, O2 Delivery Method Pending, Phlebotomy Draw Site Pending 06/17/17 2030: Troponin I 0.06 06/17/17 1700: APTT 51 H 06/17/17 1539: Urine Color YEL, Urine Clarity CLEAR, Urine pH 6.0, Ur Specific [place] 1.015, Urine Protein 30 H, Urine Ketones TRACE H, Urine Nitrite NEG, Urine Bilirubin NEG, Urine Urobilinogen 0.2, Ur Leukocyte Esterase NEG, Ur Microscopic SEDIMENT EXAMINED, Urine RBC 1-3, Urine WBC RARE, Ur Epithelial Cells FEW, Urine Bacteria MOD H, Urine Mucus RARE, Urine Hemoglobin NEG, Urine Glucose NEG 06/17/17 1250: Troponin I 0.05 Microbiology 06/17 1539 URINE ROUT: Legionella Antigen - COMP 06/17 153 URINE ROUT: Streptococcus pneumoniae Antigen (M - COMP 04/04 0859 LOWER RESP: Respiratory Culture - COLB 06/17 858 LOWER RESP: Gram Stain - COLB Assessment/Plan Assessment: Mrs. Smith is an 86 year old woman w/ a PMHx of hypertension, hypothyroidism, heart failure(HFpEF), history of TIA about 6 years ago, history of breast lump status post lumpectomy, history of bowel perforation status post ileostomy with subsequent reversal, history of recurrent bilateral pleural effusion status post taps on multiple occasions last one was 2009, history of COPD came to the ED w/ a chief complaint of shortness of breath started x 1 day prior to presentation. She was also found to have fever 101.2, associated w/ chills. No CP, palpitations, dizziness, abdominal pain. At the time of admission temperature 99.0, pulse rate 101, respiration 24, blood pressure 189/74, 87% on room air (acute hypoxemic respiratory failure) which improved to 95% on 3 L., She was also found to be febrile to 101.2. She was also found to be in atrial fibrillation with rapid ventricular rate, and was started on intravenous diltiazem drip. Pertinent lab findings at the time of admission-WBC 17.3, (94.3% granulocytosis) , hemoglobin 12.7, hematocrit 39.2, platelets 167. Sodium 138, potassium 4.2, bicarbonate 25, anion gap 13, BUN 29, creatinine 1.1, lactic acid was 1.0. Total bilirubin 1.6, direct bilirubin 0.5, liver chemistries-AST 18, ALT 41, alkaline phosphatase 151, serial cardiac enzymes troponin I-0.01, 0.05, 0.06, proBNP 3070. TSH 3.10, free T4 1 0.56. Urinalysis revealed moderate bacteria but otherwise clear. INR 1.18. D-dimer 649. Chest x-ray-done on 06/17/2017 revealed-Bibasilar patchy opacities concerning for infection. Aspiration can have a similar appearance. Unchanged small bilateral pleural effusions Follow-up CT chest without contrast-done on 06/17/2017 revealed-Left greater than right bilateral pleural effusions.Nonspecific multifocal groundglass and linear opacification bilaterally. Theappearance is nonspecific, though consider atypical infectious andinflammatory processes. Small pericardial effusion.Splenomegaly.Atrophic left kidney.Several subcentimeter pulmonary nodules. The largest measures 9 mm. Echocardiogram 06/18/2017 revealed 1. Normal EF of 60%. 2. Mild to moderate left ventricular hypertrophy. 3. The left atrium is top normal in size. 4. Mild mitral regurgitation. 5. Mild tricuspid regurgitation. 6. Trace pulmonic regurgitation. 7. Small to moderate pericardial effusion. Etiology is likely multifactorial, with likely component of infectious process such as multilobar pneumonia, reactive pericardial pleural effusions which have been monitored closely for development of empyema. She also has new onset atrial fibrillation, which has been rate controlled with AV henry blocking drugs. She is also anticoagulated with Duac for her elevated Jorge vasc score. She is currently normal sinus rhythm. In regards to her pericardial effusion, defer the decision to the real estate job titles to reevaluate the need for anticoagulation in her after discussing risks versus benefits in such a case. She also has a history of previous cancers, which should be considered in differentials. Problem list: #1 atrial fibrillation with rapid ventricular rate #2 history of hypertension #3 multilobar pneumonia likely community-acquired pneumonia #4 lung nodules #5 incidental finding of renal angiolipoma #6 cholelithiasis #7 history of TIA #8 hypothyroidism Plan: -Continue to monitor the patient on telemetry. -Continue antibiotics for now pending cultures. -EKGs and troponins negative ruled out for PR. -Consider VQ scan, after discussing with the real estate job titles and the attending physician, if she doesnt have any symptomatic improvement. She is currently on anticoagulation. -Lasix PO for now. -Follow up of lung nodules as an outpatient. -Continue Cardizem and Lopressor. Housekeeping: #1 DVT prophylaxis-pharmacological #2 patient is full code. Problem List: 1. Community acquired pneumonia 2. 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 Patient is admitted here for commnity acquired pneumonia and uncontrolled afib with pleuritic chest pain with negative cardiac enzmyes. Patient feels anxious, SPO2 93 on nc, vitals stable, afebrile. WBC improved. Cardiology consulted in ER and recommend iv heparin drip , iv cardizem which is changed to PO meds. Patient continue iv antibitoics, oxygen supplementation, TRCs, CT chest with bilateral pleural effusion and multiple nodules, Follow cultures, monitor labs and hemodynamcis. gi/dvt prophyalxis full code. Plan of care d/wed patient bedside. Update as per patient.
[2017-06-18 08:05] LABS: ABSOLUTE BASOPHIL COUNT 0 /CUMM (0.0-0.2); ABSOLUTE EOSINOPHIL COUNT 0 /CUMM (0.0-0.7); EOSINOPHIL % 0.3 % (0-5); MEAN CORPUSCULAR HGB 26.9 PG (27.0-31.0); MEAN CORPUSCULAR VOLUME 80.4 FL (81.0-99.0)
[2017-06-18 08:42] LABS: ABSOLUTE GRANULOCYTE CT 7.6 /CUMM (1.4-6.5); ABSOLUTE LYMPH COUNT 0.7 /CUMM (1.2-3.4); ABSOLUTE MONOCYTE COUNT 0.3 /CUMM (0.10-0.60); BASOPHIL % 0 % (0.0-2.0); MEAN CORPUSCULAR HGB CONC 33.4 G/DL (33.0-37.0); MEAN PLATELET VOLUME 8.3 FL (7.4-10.4); PLATELET COUNT 153 /CUMM (130-400); RED BLOOD CELL CT 4.11 /CUMM (4.20-5.40); WHITE BLOOD CELL COUNT 8.7 /CUMM (4.8-10.8)
[2017-06-18 08:59] LABS: GRANULOCYTE % 88.3 % (42.2-75.2)
[2017-06-18 14:53] VITALS: BP 140/50
--- NOTE | 2017-06-18 18:47 | PN- Cardiology ---
Subjective Subjective: * No complaints * sinus rhythm * respiratory alkylosis noted with low pO2 Objective Vital Signs and I&Os Vital Signs Date Time Temp Pulse Resp B/P B/P Pulse O2 O2 Flow FiO2 Mean Ox Delivery Rate 06/18 1600 Nasal 3.0L Cannula 06/18 1453 98.5 69 24 140/50 93 06/18 1002 100 150/60 06/18 1002 100 156/60 06/18 0800 93 Nasal 3.0L Cannula 06/18 0706 98.1 73 20 150/60 93 Nasal 3.0L Cannula 06/18 0000 Nasal 2.0L Cannula 06/17 2303 67 152/60 06/17 2207 98.3 63 20 142/62 94 Nasal Cannula 06/17 2142 66 142/60 06/17 2130 67 172/62 06/17 2048 Nasal 3.0L Cannula Intake & Output 06/18 1600 06/18 0800 04 0000 06/17 1600 06/17 0800 06/17 0000 Intake Total 350 300 Output Total 450 200 100 Balance -100 100 -100 Intake, Oral 350 300 Number 1 1 Bowel Movements Output, Urine 450 200 100 Patient 126 lb 120 lb Weight Weight Bed scale Reported by Patient Measurement Method Physical Exam: General: WD/WN female in NAD; alert and oriented x 3 Neck: no JVD, no carotid bruit Heart: RRR with 2/6 systolic murmur Lungs: scant crackles at the left base Extremities: no edema Assessment/Plan Assessment/Plan * This patient had atrial fibrillation of unknown duration which spontaneously converted back to a sinus rhythm. Her heart rate is only mildly elevated. Continue Cardizem CD 120mg daily which will provide some additional rate control. Labetolol can be continued as previously prescribed. Continue Eliquis 2.5mg BID for stroke prophylaxis. * I do not think this patient has heart failure but I do have concern that her shortness of breath, elevated D-dimer and new onset atrial fibrillation may have been due to a PE, especially considering her age, relative immobility and history of cancer. I would obtain a CT angiogram to assess for a PE especially in the setting of a normal WBC count and absence of fever. Continue telemetry? Yes
[2017-06-18 21:24] VITALS: BP 160/76
[2017-06-19 06:34] VITALS: BP 145/57
--- NOTE | 2017-06-19 07:34 | PN- Housestaff ---
Jackeline Clement 06/19/17 0729: Subjective Follow-up For: - pneumonia - pleural effusion Complaints: no complaints Tele-Events Since Last Visit: NSR, no new tele events. Subjective: Vitals stable. She feels better. No more chest pains. Called the pts family for more medical history, and updating him about the plan as per pts request. Couldnt reach Mr Ady Smith. Afebile overnight. Ms Smith doesnt seem to remember the reaction to the last IV contast. As per the pt she is not aware of any CT scan reaction. Reached out to her who makes healtcare decisions given her history of memory lapses. Discussed w/ Mr Ady Smith and discussed w/ him about the management plan. Ms Smith had a skin rash and breathing difficulty after receivng IV contrast 5-6 yrs ago at [place], and was treated. Also gave him the option to pre-medicate to lower the risk of adverse reactions, but he was not agreeable for iv contrast study. As per Mr Smith, " I am not comfortable to give her contrast". Discussed w/ the attending. Review of Systems Constitutional: Reports: see HPI, chills. Objective Last 24 Hrs of Vital Signs/I&O Vital Signs Date Time Temp Pulse Resp B/P B/P Pulse O2 O2 Flow FiO2 Mean Ox Delivery Rate 06/19 0634 97.9 64 20 145/57 91 / 0000 Nasal 3.0L Cannula 06/19 2123 98.6 78 22 160/76 92 Nasal 3.0L Cannula 06/18 2103 68 160/76 / 1600 Nasal 3.0L Cannula 06/18 1453 98.5 69 24 140/50 93 04/05 1002 100 150/60 04/05 1002 100 156/60 /05 0800 93 Nasal 3.0L Cannula Intake & Output 06/19 0800 04/ 0000 05 1600 Intake Total 100 480 350 Output Total 450 Balance 100 480 -100 Intake, Oral 100 480 350 Number 1 Bowel Movements Output, Urine 450 Patient 125 lb Weight Weight Bed scale Measurement Method Physical Exam General Appearance: No Acute Distress Other Physical Findings: General Exam: AAOx3, No acute distress, Skin: No rashes, no breakdown;HEENT: PERRLA, EOMI;Neck: Supple, No JVD; No cervical lymphadenopathy;CVS: irregularly irregular rate, systolic murmur; Normal S1,S2; Resp: Normal air entry, b/l rales ;Abdomen: Soft, No tenderness, Normal Bowel Sounds;Neuro: Normal Speech, Strength 5/5 b/l x 4 extremities, Sensation intact, CN III-XII NL, Reflexes 2+; Extremities: No cyanosis, no pedal edema Current Medications: Current Medications Sig/Moises Start time Last Medication Dose Route Stop Time Status Admin Acetaminophen 650 MG Q6P PRN 06/17 0915 AC 06/17 PO 211 Alprazolam 0.25 MG ONCE PRN 06/18 1000 AC 06/18 PO 06/25 0959 0959 Apixaban 2.5 MG BID 06/17 2200 AC 06/18 PO 2103 Aspirin Buffered 81 MG DAILY 06/18 1000 AC 06/18 PO 1002 Atorvastatin Calcium 10 MG 1700 06/17 1700 AC 06/18 PO 1654 Azithromycin 500 MG Q24H 06/18 0900 AC 06/18 Sodium Chloride 250 ML IV 1001 Ceftriaxone Sodium 1,000 MG DAILY 06/18 1000 AC 06/18 IV 1001 Diltiazem HCl 120 MG DAILY 06/18 1000 AC 06/18 PO 1002 Furosemide 20 MG DAILY 06/18 1000 AC 06/18 PO 1000 Labetalol HCl 300 MG BID 06/17 2200 AC 06/18 PO 2103 Levothyroxine Sodium 0.088 MG DAILY AC 06/18 0700 AC 06/19 PO 0614 Losartan Potassium 50 MG DAILY 06/18 1000 AC 06/18 PO 1002 Magnesium Oxide 400 MG DAILY 06/17 1029 AC 06/18 PO 1001 Multivitamins 1 TAB DAILY 06/18 1000 AC 06/18 Therapeutic PO 1001 Patient Medication 1 ED ONE ONE 06/18 0830 DC 06/18 Teaching ED 06/18 930 1001 Potassium Chloride 20 MEQ DAILY 06/18 1000 AC 06/18 PO 1000 Last 24 Hrs of Lab/[place] Results Last 24 Hrs of Labs/Mics: Laboratory Tests 06/19/17 0623: Sodium Pending, Potassium Pending, Chloride Pending, Carbon Dioxide Pending, Anion Gap Pending, BUN Pending, Creatinine Pending, BUN/Creatinine Ratio Pending , CBC w Diff Pending, WBC Pending, RBC Pending, Hgb Pending, Hct Pending, MCV Pending, MCH Pending, MCHC Pending, RDW Pending, Plt Count Pending, MPV Pending Assessment/Plan Assessment: Mrs. Smith is an 86 year old woman w/ a PMHx of hypertension, hypothyroidism, heart failure(HFpEF), history of TIA about 6 years ago, history of breast lump status post lumpectomy, history of bowel perforation status post ileostomy with subsequent reversal, history of recurrent bilateral pleural effusion status post taps on multiple occasions last one was 2009, history of COPD came to the ED w/ a chief complaint of shortness of breath started x 1 day prior to presentation. She was also found to have fever 101.2, associated w/ chills. No CP, palpitations, dizziness, abdominal pain. Etiology is likely multifactorial, with likely component of infectious process such as multilobar pneumonia, reactive pericardial pleural effusions which have been monitored closely for development of empyema. She also has new onset atrial fibrillation, which has been rate controlled with AV henry blocking drugs. She is also anticoagulated with Duac for her elevated Jorge vasc score. She is currently normal sinus rhythm. In regards to her pericardial effusion, defer the decision to the family medicine physician assistant to reevaluate the need for anticoagulation in her after discussing risks versus benefits in such a case. She also has a history of previous cancers, which should be considered in differentials. Problem list: #1 atrial fibrillation with rapid ventricular rate #2 history of hypertension #3 multilobar pneumonia likely community-acquired pneumonia #4 lung nodules #5 incidental finding of renal angiolipoma #6 cholelithiasis #7 history of TIA #8 hypothyroidism Plan: -Continue to monitor the patient on telemetry. -Continue antibiotics for now pending cultures. Resend [facility]. -EKGs and troponins negative ruled out for VA. -Consider VQ scan, after discussing with the family medicine physician assistant and the attending physician, if she doesnt have any symptomatic improvement. She is currently on anticoagulation. -Lasix PO for now. -Follow up of lung nodules as an outpatient. -Continue Cardizem and Labetolol. Housekeeping: #1 DVT prophylaxis-pharmacological #2 patient is full code. Problem List: 1. Community acquired pneumonia 2. New onset atrial fibrillation 3. Renal insufficiency 4. 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 Patient is admitted here for commnity acquired pneumonia and uncontrolled afib with pleuritic chest pain with negative cardiac enzmyes. Patient feels anxious, SPO2 93 on nc, vitals stable, afebrile. WBC improved. Cardiology recommend PO meds (eliquis/cardizem). Rate controlled. Patient continue iv antibitoics, Titrate oxygen supplementation, TRCs, CT chest with bilateral pleural effusion and multiple nodules, Follow cultures reamin negative so far. refuses for consent of CTA chest. Anticipate dc planning on PO abx. gi/dvt prophyalxis full code. Anticipate dc planning on PO abx. gi/dvt prophyalxis full code.
[2017-06-19 08:04] LABS: ABSOLUTE BASOPHIL COUNT 0 /CUMM (0.0-0.2); ABSOLUTE EOSINOPHIL COUNT 0.1 /CUMM (0.0-0.7); ABSOLUTE GRANULOCYTE CT 6.2 /CUMM (1.4-6.5); ABSOLUTE LYMPH COUNT 0.7 /CUMM (1.2-3.4); ABSOLUTE MONOCYTE COUNT 0.4 /CUMM (0.10-0.60); BASOPHIL % 0 % (0.0-2.0); EOSINOPHIL % 0.7 % (0-5); GRANULOCYTE % 84.5 % (42.2-75.2); HEMATOCRIT 32.9 % (37-47); MEAN CORPUSCULAR HGB 27.1 PG (27.0-31.0); MEAN CORPUSCULAR HGB CONC 33.7 G/DL (33.0-37.0); MEAN CORPUSCULAR VOLUME 80.3 FL (81.0-99.0); MEAN PLATELET VOLUME 7.9 FL (7.4-10.4); PLATELET COUNT 185 /CUMM (130-400); RBC DISTRIBUTION WIDTH 14.6 % (11.5-14.5); WHITE BLOOD CELL COUNT 7.4 /CUMM (4.8-10.8)
[2017-06-19] MEDS ORDERED: ELIQUIS2.5 M1 PO (08:30)
[2017-06-19] MEDS ORDERED: DILTIAZEM ER120 M2 PO (08:30)
--- NOTE | 2017-06-19 08:33 | Patient Discharge Instructions ---
Discharge Instructions General Discharge Information You were seen/treated for: Pneumonia Atrial fibrillation Watch for these problems: #1 chest pain, shortness of breath, fever #2 of lightheadedness, dizziness, loss of consciousness Special Instructions: -Please see your primary care provider within a week of discharge -Please see your cotton chopper within a week of discharge -Please follow up with your computer programmer within a week of discharge. Please follow up with him regarding the lung nodules, and plueral effusion- fluid around the lungs. -Please take your medications as prescribed. -Please note that there have been some changes to your medications. Acute Coronary Syndrome Inclusion Criteria At DC or during hospital stay patient has or had the following: ACS DIAGNOSIS No Discharge Core Measures Meds if any: Prescribed or Continued at Discharge Meds if any: NOT Prescribed or Continued at Discharge Congestive Heart Failure Inclusion Criteria At DC or during hospital stay patient has or had the following: CHF DIAGNOSIS No Discharge Core Measures Meds if any: Prescribed or Continued at Discharge Meds if any: NOT Prescribed or Continued at Discharge Cerebrovascular accident Inclusion Criteria At DC or during hospital stay patient has or had the following: CVA/TIA Diagnosis No Discharge Core Measures Meds if any: Prescribed or Continued at Discharge Meds if any: NOT Prescribed or Continued at Discharge Venous thromboembolism Inclusion Criteria VTE Diagnosis No VTE Type NONE VTE Confirmed by (Test) NONE Discharge Core Measures - Per Current guidelines, there needs to be overlap - treatment for the first 5 days of Warfarin therapy. - If discharged on Warfarin prior to 5 days of - overlap therapy, the patient will need to be - assessed for post discharge needs including - *Post discharge parental anticoagulation - *Warfarin and/or parental anticoagulation education - *Follow up date to check INR post discharge At least 5 days overlap therapy as Inpatient No Meds if any: Prescribed or Continued at Discharge Note: Overlap Therapy is Warfarin and Anticoagulant Meds if any: NOT Prescribed or Continued at Discharge
--- NOTE | 2017-06-19 12:52 | ULTRASOUND REPORT ---
EXAMINATION: US TRIPLEX OF LOWER EXTREMITIES, BILATERAL CLINICAL INFORMATION: This is an 86-year-old female with bilateral lower extremity edema. Possible deep vein thrombosis. COMPARISON: None TECHNIQUE: Color-flow triplex imaging with spectral analysis and compression Doppler were performed on the lower extremities. FINDINGS: Respiratory variation, normal compression and augmented flow are noted throughout the lower extremities. The visualized common femoral vein, superficial femoral vein, profunda femoral vein, popliteal vein and midcalf peroneal and posterior tibial venous segments show no evidence of deep venous thrombosis. There is no Nelson's cyst. IMPRESSION: Normal triplex scan without evidence of deep venous thrombosis involving the lower extremities.
[2017-06-19 15:20] VITALS: BP 148/70
--- NOTE | 2017-06-19 18:17 | PN- Cardiology ---
Subjective Subjective: * No complaints * sinus rhythm Objective Vital Signs and I&Os Vital Signs Date Time Temp Pulse Resp B/P B/P Pulse O2 O2 Flow FiO2 Mean Ox Delivery Rate 06/19 1520 98.8 72 22 148/70 90 Room Air 06/19 1012 74 150/60 06/19 1011 74 150/60 06/19 0800 93 Room Air 06/19 0634 97.9 64 20 145/57 91 06/19 0000 Nasal 3.0L Cannula 06/18 2124 98.6 78 22 160/76 92 Nasal 3.0L Cannula 06/18 2103 68 160/76 Intake & Output 06/19 1600 06/19 0800 04 0000 06/18 1600 06/18 0000 Intake Total 995 100 480 350 300 Output Total 600 450 200 100 Balance 395 100 480 -100 100 -100 Intake, IV 275 Intake, Oral 720 100 480 350 300 Number 2 1 1 Bowel Movements Output, Urine 600 450 200 100 Patient 125 lb 126 lb Weight Weight Bed scale Bed scale Measurement Method Physical Exam: General: WD/WN female in NAD; alert and oriented x 3 Neck: no JVD, no carotid bruit Heart: RRR with ectopy and a 2/6 systolic murmur Lungs: scant crackles at the left base Extremities: no edema Assessment/Plan Assessment/Plan * This patient had atrial fibrillation of unknown duration which spontaneously converted back to a sinus rhythm. Her heart rate is only mildly elevated. Continue Cardizem CD 120mg daily which will provide some additional rate control. Labetolol can be continued as previously prescribed. Continue Eliquis 2.5mg BID for stroke prophylaxis. * I do not think this patient has heart failure but I do have concern that her shortness of breath, elevated D-dimer and new onset atrial fibrillation may have been due to a PE, especially considering her age, relative immobility and history of cancer. In consideration of her history of a contrast allergy, and due to the fact that she will be on anticoagulation for atrial fibrillation anyway, we can forego the CT angiogram to assess for a PE. Continue telemetry? No
[2017-06-19 22:30] VITALS: BP 146/68
[2017-06-20 06:54] VITALS: BP 140/00
--- NOTE | 2017-06-20 07:47 | PN- Housestaff ---
Masoud Clementcolleenjulienne 06/20/17 0747: Subjective Follow-up For: Atrial fibrillation Pneumonia Complaints: no complaints Tele-Events Since Last Visit: Normal sinus rhythm, no new telemetry events. Subjective: The patient is comfortable this morning. Did not have any concerns. She did not have any chest pain or palpitations. Vitals remained stable overnight. Called the pts , Mr Smith to discuss about the discharge plan. Unfortunately, he couldnt be reached. Review of Systems Constitutional: Reports: see HPI. Objective Last 24 Hrs of Vital Signs/I&O Vital Signs Date Time Temp Pulse Resp B/P B/P Pulse O2 O2 Flow FiO2 Mean Ox Delivery Rate 06/20 0852 70 140/00 / 0654 98.3 70 20 140/00 90 Room Air 06/19 2230 98.0 75 20 146/68 90 / 2141 98.8 72 148/70 06/19 1520 98.8 72 22 148/70 90 Room Air Intake & Output 06/20 1600 06/20 0800 06/20 0000 Intake Total 200 100 Output Total Balance 200 100 Intake, Oral 200 100 Patient 121 lb Weight Physical Exam General Appearance: No Acute Distress Other Physical Findings: General Exam: AAOx3, No acute distress, Skin: No rashes, no breakdown;HEENT: PERRLA, EOMI;Neck: Supple, No JVD; No cervical lymphadenopathy;CVS: irregularly irregular rate, systolic murmur; Normal S1,S2; Resp: Normal air entry, b/l rales ;Abdomen: Soft, No tenderness, Normal Bowel Sounds;Neuro: Normal Speech, Strength 5/5 b/l x 4 extremities, Sensation intact, CN III-XII NL, Reflexes 2+; Extremities: No cyanosis, no pedal edema Current Medications: Current Medications Sig/Moises Start time Last Medication Dose Route Stop Time Status Admin Acetaminophen 650 MG Q6P PRN 06/17 0915 AC 06/17 PO 2117 Alprazolam 0.25 MG ONCE PRN 06/18 1000 AC 06/18 PO 06/25 0959 0959 Apixaban 2.5 MG BID 06/17 2200 AC 06/20 PO 0851 Aspirin Buffered 81 MG DAILY 06/18 1000 AC 06/20 PO 0851 Atorvastatin Calcium 10 MG 1700 06/17 1700 AC 06/19 PO 1635 Azithromycin 500 MG Q24H 06/18 0900 AC 06/20 Sodium Chloride 250 ML IV 0912 Ceftriaxone Sodium 1,000 MG DAILY 06/18 1000 AC 06/20 IV 0912 Diltiazem HCl 120 MG DAILY 06/18 1000 AC 06/20 PO 0848 Furosemide 20 MG DAILY 06/18 1000 AC 06/20 PO 0852 Labetalol HCl 300 MG BID 06/17 2200 AC 06/20 PO 0852 Levothyroxine Sodium 0.088 MG DAILY AC 06/18 0700 AC 06/20 PO 0613 Losartan Potassium 50 MG DAILY 06/18 1000 AC 06/20 PO 0912 Magnesium Oxide 400 MG DAILY 06/17 1029 AC 06/20 PO 0852 Multivitamins 1 TAB DAILY 06/18 1000 AC 06/20 Therapeutic PO 0852 Potassium Chloride 20 MEQ DAILY 06/18 1000 AC 06/20 PO 0852 Assessment/Plan Assessment: Mrs. Smith is an 86 year old woman w/ a PMHx of hypertension, hypothyroidism, heart failure(HFpEF), history of TIA about 6 years ago, history of breast lump status post lumpectomy, history of bowel perforation status post ileostomy with subsequent reversal, history of recurrent bilateral pleural effusion status post taps on multiple occasions last one was 2009, history of COPD came to the ED w/ a chief complaint of shortness of breath started x 1 day prior to presentation. She was also found to have fever 101.2, associated w/ chills. No CP, palpitations, dizziness, abdominal pain. Lab findings in the last 24 hrs- no labs obtained. Etiology is likely multifactorial, with likely component of infectious process such as multilobar pneumonia, reactive pericardial pleural effusions which have been monitored closely for development of empyema. She also has new onset atrial fibrillation, which has been rate controlled with AV henry blocking drugs. She is also anticoagulated with Duac for her elevated Jorge vasc score. She is currently normal sinus rhythm. In regards to her pericardial effusion, defer the decision to the feed weigher to reevaluate the need for anticoagulation in her after discussing risks versus benefits in such a case. She also has a history of previous cancers, which should be considered in differentials. Problem list: #1 atrial fibrillation with rapid ventricular rate #2 history of hypertension #3 multilobar pneumonia likely community-acquired pneumonia #4 lung nodules #5 incidental finding of renal angiolipoma #6 cholelithiasis #7 history of TIA #8 hypothyroidism Plan: -Continue to monitor the patient on telemetry. -Continue antibiotics for now pending cultures, and change the antibiotics to Augmentin. -EKGs and troponins negative ruled out for VT. -No CTAs considered for now. -Lasix PO for now. -Follow up of lung nodules as an outpatient. -Continue Cardizem and Labetolol. Housekeeping: #1 DVT prophylaxis-pharmacological #2 patient is full code. Problem List: 1. Community acquired pneumonia 2. 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 Patient is admitted here for commnity acquired pneumonia and uncontrolled afib with pleuritic chest pain with negative cardiac enzmyes. Vitals stable, afebrile. WBC improved. Respiratroy failure resolved. Cardiology recommend PO meds (eliquis/cardizem). Rate controlled now in sinus ryhtm PO antibitoics, TRCs, CT chest with bilateral pleural effusion and multiple nodules, Follow cultures reamin negative so far. Anticipate dc soon.
[2017-06-20] MEDS ORDERED: AUGMENTIN 875-1 EACH PO ×2 (10:16→11:44)
--- NOTE | 2017-06-20 10:29 | Discharge Summary ---
Visit Information Visit Dates Admission Date: 06/17/17 Discharge Date: 06/21/17 Hospital Course Course Attending Physician: Garo Zavala MD Primary Care Physician: Cem Sapp DO Hospital Course: Mrs. Smith is an 86 year old woman w/ a PMHx of hypertension, hypothyroidism, heart failure(HFpEF), history of TIA about 6 years ago, history of breast lump status post lumpectomy, history of bowel perforation status post ileostomy with subsequent reversal, history of recurrent bilateral pleural effusion status post taps on multiple occasions last one was 2009, history of COPD came to the ED w/ a chief complaint of shortness of breath started x 1 day prior to presentation. She was also found to have fever 101.2, associated w/ chills. No CP, palpitations, dizziness, abdominal pain. At the time of admission temperature 99.0, pulse rate 101, respiration 24, blood pressure 189/74, 87% on room air (acute hypoxic respiratory failure) which improved to 95% on 3 L; She was also found to be febrile to 101.2. She was also found to be in atrial fibrillation with rapid ventricular rate, and was started on intravenous diltiazem drip. Pertinent lab findings at the time of admission-WBC 17.3, (94.3% granulocytosis) , hemoglobin 12.7, hematocrit 39.2, platelets 167. Sodium 138, potassium 4.2, bicarbonate 25, anion gap 13, BUN 29, creatinine 1.1, lactic acid was 1.0. Total bilirubin 1.6, direct bilirubin 0.5, liver chemistries-AST 18, ALT 41, alkaline phosphatase 151, serial cardiac enzymes troponin I-0.01, 0.05, 0.06, proBNP 3070. TSH 3.10, free T4 1 0.56. Urinalysis revealed moderate bacteria but otherwise clear. INR 1.18. D-dimer 649. Chest x-ray-done on 06/17/2017 revealed-Bibasilar patchy opacities concerning for infection. Aspiration can have a similar appearance. Unchanged small bilateral pleural effusions. Follow-up CT chest without contrast-done on 06/17/2017 revealed-Left greater than right bilateral pleural effusions.Nonspecific multifocal groundglass and linear opacification bilaterally. Theappearance is nonspecific, though consider atypical infectious andinflammatory processes. Small pericardial effusion.Splenomegaly.Atrophic left kidney.Several subcentimeter pulmonary nodules. The largest measures 9 mm. Echocardiogram 06/18/2017 revealed 1. Normal EF of 60%. 2. Mild to moderate left ventricular hypertrophy. 3. The left atrium is top normal in size. 4. Mild mitral regurgitation. 5. Mild tricuspid regurgitation. 6. Trace pulmonic regurgitation. 7. Small to moderate pericardial effusion. Etiology is likely multifactorial, with likely component of infectious process such as multilobar pneumonia, reactive pleural effusions due to community acquired pneumonia for which she was stated on ceftriaxone and azithromycin. LRC remained negative for any growth of microbes. She remained afebrile, and vitals remained stable. She was found to have new onset atrial fibrillation, which was rate controlled with AV henry blocking drugs- Cardizem, and eventually converted to NSR. She was however anticoagulated w/ a DOAC given her high [id number] score. In regards to her persistent pleural effusions, she was not being followed by any hr associate in the last many years. As per the hr associate, she was lost to follow up given her improvement in her symptoms. Etiology for her persistent pleural effusion was not very clear. Problem list: #1 atrial fibrillation with rapid ventricular rate #2 history of hypertension #3 multilobar pneumonia likely community-acquired pneumonia #4 lung nodules #5 incidental finding of renal angiolipoma #6 cholelithiasis #7 history of TIA #8 hypothyroidism #9 Acute hypoxic respiratory failure Allergies: Coded Allergies: Iodinated Contrast- Oral and IV Dye (IODINATED CONTRAST MEDIA - ORAL AND) (IVP DYE 07/27/16) Penicillins (UNKNOWN 07/27/16) Sulfa (Sulfonamide Antibiotics) (UNKNOWN 07/27/16) Tetanus Vaccines and Toxoid (UNKNOWN 07/27/16) codeine (UNKNOWN 07/27/16) latex (ITCHING FROM LATEX GLOVES 07/27/16) Uncoded Allergies: RADIOACTIVE ISOTOPES (UNKNOWN 01/12/12) Disposition Summary Disposition Principal Diagnosis: Community acquired pneumonia Additional Diagnosis: New onset Afib Discharge Disposition: home or self care Discharge Instructions General Discharge Information Code Status: Full Code Patient's Diet: heart healthy diet Patient's Activity: as tolerated Follow-Up Instructions/Appts: 1. Please follow up with your PCP, and instructional material director within one week of discharge. Medications at Discharge Discharge Medications: Stop taking the following medications: Amlodipine Besylate (Amlodipine Besylate) 5 MG TABLET ORAL DAILY Qty = 3 Continue taking these medications: Labetalol HCl (Labetalol HCl) 300 MG TABLET 1 Tablet ORAL TWICE DAILY Qty = 60 Comments: Last Taken: 06/21/17 Time: 0900 AM Furosemide (Furosemide) 20 MG TABLET 1 Tablet ORAL DAILY Qty = 30 Comments: Last Taken: 06/21/17 Time: 0900 AM Atorvastatin Calcium (Atorvastatin Calcium) 10 MG TABLET 1 Tablet ORAL 5 PM Qty = 90 Comments: Last Taken: 06/20/17 Time: 5 PM Levothyroxine Sodium (Levothyroxine Sodium) 88 MCG TABLET 1 Tablet ORAL DAILY BEFORE BREAKFAST Qty = 30 Comments: Last Taken: 06/21/17 Time: 0600 AM Aspirin (Ecotrin*) 81 MG TABLET.DR 1 Tablet ORAL DAILY Comments: Last Taken: 06/21/17 Time: 0900 AM Potassium Chloride (Potassium Chloride) 20 MEQ TAB.ER.PRT 1 Tablet ORAL DAILY Days = 90 Comments: Last Taken: 06/21/17 Time: 0900 AM Valsartan (Valsartan) 80 MG TABLET 1 Tablet ORAL DAILY Qty = 90 Comments: Last Taken: 06/21/17 Time: 0600 AM Magnesium Oxide (Magnesium Oxide) 400 MG TABLET 1 Tablet ORAL DAILY Comments: Last Taken: 06/21/17 Time: 0900 AM Multivitamin (Daily Value) 1 EACH TABLET 1 Tablet ORAL DAILY Comments: Last Taken: 06/21/17 Time: 0900 AM Start taking the following new medications: Diltiazem Cd (Diltiazem ER) 120 MG CAP.ER.DEG 120 Milligram ORAL DAILY Qty = 60 Refills = 1 Instructions: . Comments: Last Taken: 06/21/17 Time: 0900 AM Apixaban (Eliquis) 2.5 MG TABLET 2.5 Milligram ORAL TWICE DAILY Qty = 60 Refills = 1 Instructions: . Comments: Last Taken: 06/21/17 Time: 0900 AM Cefpodoxime Proxetil (Cefpodoxime Proxetil) 200 MG TABLET 1 Tablet ORAL TWICE DAILY Qty = 4 No Refills Comments: GIVEN IV ROCEPHIN IN HOSPITAL. 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 Patient is admitted here for commnity acquired pneumonia and uncontrolled afib with pleuritic chest pain with negative cardiac enzmyes. Vitals stable, afebrile. WBC improved. Respiratroy failure resolved. Cardiology recommend PO meds (eliquis/cardizem). Rate controlled now in sinus ryhtm PO antibitoics, TRCs, CT chest with bilateral pleural effusion and multiple nodules, Follow cultures reamin negative so far. Anticipate dc today. Follow up with PCP in few days of discharge.
[2017-06-20] MEDS ORDERED: DILTIAZEM ER120 M2 PO (11:44)
[2017-06-20] MEDS ORDERED: ELIQUIS2.5 M1 PO (11:44)
[2017-06-20 14:14] VITALS: BP 128/100
[2017-06-20] MEDS ORDERED: CEFUROXIME500 MG PO (17:33)
[2017-06-20] MEDS ORDERED: CEFPODOXIME PR200 M2 PO (19:13)
[2017-06-20 22:06] VITALS: BP 150/70
[2017-06-21 09:00] VITALS: BP 172/60
--- NOTE | 2017-06-21 10:48 | PN- Att Addend ---
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 Patient is admitted here for commnity acquired pneumonia and uncontrolled afib with pleuritic chest pain with negative cardiac enzmyes. Vitals stable, afebrile. WBC improved. Respiratroy failure resolved. PE unremarkable. Cardiology recommend PO meds (eliquis/cardizem). Rate controlled now in sinus ryhtm PO antibitoics, TRCs, CT chest with bilateral pleural effusion and multiple nodules, Follow cultures reamin negative so far. Anticipate dc today. bedside. Discharge planning discussed with / family bedside. FOLLOW UP PCP in 3-5 days of Discharge. Admission Meds I reviewed the following Meds: Current Medications Sig/Moises Start time Last Medication Dose Stop Time Status Admin Acetaminophen 650 MG Q6P PRN 06/17 0915 AC 06/21 (Tylenol) 0606 Alprazolam 0.25 MG ONCE PRN 06/18 1000 AC 06/21 (Xanax) 06/25 0959 0605 Amoxicillin/ 875 MG Q12 06/21 1000 CAN Clavulanate Potassium (Augmentin) Apixaban 2.5 MG BID 06/17 2200 AC 06/21 (Eliquis) 0859 Aspirin Buffered 81 MG DAILY 06/18 1000 AC 06/21 (Ecotrin) 0859 Atorvastatin Calcium 10 MG 1700 06/17 1700 AC 06/20 (Lipitor) 1711 Ceftriaxone Sodium 1,000 MG DAILY 06/21 1000 AC 06/21 (Rocephin) 0910 Cefuroxime Sodium 500 MG Q12 06/21 1000 CAN (Ceftin) Diltiazem HCl 120 MG DAILY 06/18 1000 AC 06/21 (Cardizem CD) 0859 Furosemide 20 MG DAILY 06/18 1000 AC 06/21 (Lasix) 0900 Labetalol HCl 300 MG BID 06/17 2200 AC 06/21 (Trandate) 0900 Levothyroxine Sodium 0.088 MG DAILY AC 06/18 0700 AC 06/21 (Synthroid) 0606 Losartan Potassium 50 MG DAILY 06/18 1000 AC 06/21 (Cozaar) 0606 Magnesium Oxide 400 MG DAILY 06/17 1029 AC 06/21 (Mag-Ox) 0859 Multivitamins 1 TAB DAILY 06/18 1000 AC 06/21 Therapeutic 0900 (Theragran-M Vitamins Tabs) Potassium Chloride 20 MEQ DAILY 06/18 1000 AC 06/21 (K-Dur) 0859
== END 2017-06-21 12:43 | disposition home health service (06) | DRG 193 ==
LOC: DELPENDDIS → ERH 06:03 → 1NO 08:53 → ERHI 08:53 → ENRESERV 12:12 → ENTRNSPT 12:52 → EDTRNSPTSTS 13:01 → 1NO 13:09 → CMPTRNSPT 13:21 → 1NO 14:31 → ENPENDDIS 06-20 11:43 → ENTRNSPT 06-21 11:52 → EDTRNSPTSTS 06-21 12:36 → 1NO 06-21 12:43 → CMPTRNSPT 06-21 12:49
PROVIDERS: Emergency Medicine; Internal Medicine Endocrinology, Diabetes & Metabolism; Pediatrics; Student in an Organized Health Care Education/Training Program
DX: J18.9 Pneumonia, unspecified organism (principal); J96.01 Acute respiratory failure with hypoxia; I50.32 Chronic diastolic (congestive) heart failure; E87.3 Alkalosis; J44.0 Chronic obstructive pulmonary disease with (acute) lower respiratory infection; I11.0 Hypertensive heart disease with heart failure; I48.91 Unspecified atrial fibrillation; I08.1 Rheumatic disorders of both mitral and tricuspid valves; C80.1 Malignant (primary) neoplasm, unspecified; E03.9 Hypothyroidism, unspecified; Z86.73 Personal history of transient ischemic attack (TIA), and cerebral infarction without residual deficits; Z88.5 Allergy status to narcotic agent; Z88.0 Allergy status to penicillin; Z88.2 Allergy status to sulfonamides; Z88.7 Allergy status to serum and vaccine; Z91.040 Latex allergy status; Z91.041 Radiographic dye allergy status; H91.90 Unspecified hearing loss, unspecified ear; E78.5 Hyperlipidemia, unspecified; R91.8 Other nonspecific abnormal finding of lung field; Z86.018 Personal history of other benign neoplasm; K80.20 Calculus of gallbladder without cholecystitis without obstruction; Z96.649 Presence of unspecified artificial hip joint
CPT/HCPCS: 1NP; 1NSP; 36592; 71045; 81001; 82436; 87040; 87070; 87449; 87450; 87804; 87804-59; 93005; 93010; 93306; 93970; 96374; 96375; 97116-GO; 97161-GP; 97530-GO; 99291; J0456; J0696; J1644; J3490; J7040